=== PATIENT | female | born 1980 | race Caucasian/White ===

== ENCOUNTER → 2021-05-15 16:20 | Outpatient (CLI) | payer BC, SELFPAY ==
[2021-05-15 17:02] LABS: Add Manual Diff / Slide Review NO; Basophils Absolute Auto 0 /uL (0-100); Basophils Percent Auto 0.3 % (0-2); Eosinophils Absolute Auto 400 /uL (0-450); Eosinophils Percent Auto 4.4 % (2-4); Hematocrit 37.1 % (36-46); Hemoglobin 12.4 g/dL (12.0-16.0); Lymphocytes Absolute Auto 2100 /uL (1100-4500); Lymphocytes Percent Auto 21.6 % (25-40); Mean Corpuscular HGB Conc 33.4 % (30-36); Mean Corpuscular Hemoglobin 31.7 PG (26-34); Mean Corpuscular Volume 94.9 fL (80-100); Monocytes Absolute Auto 600 /uL (0-900); Monocytes Percent Auto 5.9 % (3-14); Neutrophils Absolute Auto 6600 /uL (1500-7000); Neutrophils Percent Auto 67.8 % (50-75); Platelet Count 218 X10^3/uL (150-400); Red Blood Cell Count 3.91 X10^6/uL (4.0-5.2); Red Cell Distribution Width 13.4 % (11.6-14.8); White Blood Cell Count 9.7 X10^3/uL (4.5-11.0)
[2021-05-15 17:05] LABS: Appearance Urine UA CLEAR; Bilirubin Urine UA NEGATIVE (NEGATIVE); Color Urine UA YELLOW; Glucose Urine UA NEGATIVE (Negative); Ketones Urine UA NEGATIVE (NEGATIVE); Leukocyte Esterase Urine UA NEGATIVE (NEGATIVE); Nitrite Urine UA NEGATIVE (Negative); Occult Blood Urine UA NEGATIVE (Negative); Protein Urine UA NEGATIVE (Negative); Urobilinogen Urine UA 0.2 E.U./dL (0.2)
[2021-05-15 17:11] LABS: Bacteria Urine None Seen; RBC Urine None Seen (0-5/HPF); Squamous Epithelial Cell Urine 0-1 /HPF (0-5/HPF); WBC Urine None Seen (0-5/HPF)
[2021-05-15 17:12] LABS: Culture Indicated Urine Cult Not Indicated
[2021-05-15 17:14] LABS: PTT Partial Thromboplastin Tim 31 SECONDS (26.4-36.2)
[2021-05-15 17:19] LABS: BUN Creatinine Ratio 31.4 (6-22); Blood Urea Nitrogen 22 mg/dL (7-17); Calcium 8.8 mg/dL (8.4-10.2); Carbon Dioxide 19 mmol/L (22-32); Chloride 106 mmol/L (98-107); Estimated Glomerular Filt Rate > 60.0 mL/min (>60); Glucose 93 mg/dL (70-100); HEMOLYSIS < 15 (0-50); Sodium 135 mmol/L (137-145)
== END ==
PROVIDERS: PCP Nurse Practitioner Family; Referring Provider Neurological Surgery; Visit Provider Neurological Surgery
DX: Z01.818 Encounter for other preprocedural examination (principal); D32.9 Benign neoplasm of meninges, unspecified
CPT/HCPCS: 36415; 80048; 81001; 85025; 85610; 85730

== ENCOUNTER → 2021-07-31 09:49 | Outpatient (CLI) | payer BC, SELFPAY ==
--- NOTE | 2021-07-31 | DI.MRI.S_ITS ---
PROCEDURE: MR BRAIN (IAC) WWO CON INDICATIONS: Benign neoplasm of cerebral meninges. The patient gives additional history of prior meningioma, with surgery in May 2021 to remove it. TECHNIQUE: Noncontrast sagittal T1 spin echo, axial FLAIR, axial gradient echo, axial diffusion and ADC through the brain. Axial thin-slice 3D CISS, coronal TruFISP, axial T1 spin echo with fat saturation through the internal auditory canals. After the administration of contrast, thin slice axial and coronal T1 spin echo with fat saturation through the internal auditory canals, and axial T1 spin echo with fat saturation through the brain. COMPARISON: No prior MRI studies are available for review at the time of this dictation. FINDINGS: Image quality: Excellent. Cerebellopontine angles: There is enhancement seen along the surface of the skull base laterally within the region of the right internal auditory canal, which is relatively poorly defined, yet can be seen on series 14 images 51 through 55 and spans approximately 14 mm transversely. There is abnormal enhancement seen within the right internal auditory canal itself, as on series 16, image 108. The left internal auditory canal and cerebellopontine angle cistern are within normal limits. CSF spaces: Ventricles are normal in size and shape. No extra-axial fluid collections. Basal cisterns are patent. Brain: No intracranial bleeds. Roberts-white matter interface is intact. No additional abnormal intracranial enhancement. Diffusion weighted images demonstrate no acute ischemic insults. Brainstem appears normal. Normal intravascular flow voids are present. Skull and face: Calvarial marrow signal is normal. Orbits appear normal. Sinuses: Sinuses and mastoids are clear. IMPRESSION: Abnormal enhancement is seen within the right internal auditory canal and along the surface of the skull base. Given history, this is most likely related to postoperative change. However, differential diagnosis would also include a mild amount of residual/recurrent meningioma. Short-term follow-up MRI (without and with contrast) is suggested for further evaluation. (No prior MRI studies are available for review at the time of this dictation. If outside priors are presented for comparison, an addendum will be made to this report.) Dictated by: Keshav Madrid M.D. on 07/31/2021 at 10:04 Approved by: Keshav Madrid M.D. on 07/31/2021 at 10:09
== END ==
PROVIDERS: Family Provider Nurse Practitioner Family; PCP Nurse Practitioner Family; Referring Provider Otolaryngology Otology & Neurotology; Visit Provider Otolaryngology Otology & Neurotology
DX: D32.0 Benign neoplasm of cerebral meninges (principal)
CPT/HCPCS: 70553

== ENCOUNTER 2021-08-05 15:30 | Outpatient (RCR) | payer BC, SELFPAY ==
--- NOTE | 2021-06-11 17:29 | ST.OPIE ---
Visit Care Team Role Provider Type ROBERT Parham Family Provider Non-Staff Primary Care Provider Specialty: Family Practice Address: [address] [place], [address] Email: Manuelito Escudero MD Attending Provider Non-Staff Referring Provider Specialty: Medical Address: [address] [address], [place], [address] Email: Speech-Language Pathology Initial Evaluation BREAKER UNIT ASSEMBLER Clinical Swallow Evaluation Start: 06/11/21 12:17 Freq: Status: Active Protocol: Document 06/11/21 12:17 SHAVON (Rec: 06/11/21 12:24 SHAVON [email or web address]) Clinical Swallow Evaluation Session Time Visit Start Time 09:30 Visit Stop Time 10:35 Total Visit Minutes 65 Visit Information Visit Number Initial Evaluation Plan of Care Dates 06/11/21 - 09/11/21 Insurance Information BCBS Out of [facility] Referral Referring Provider Dr. Manuelito Escudero Reason for Referral Effects of Benign Neoplasm of Meninges Setting Assessment Location Outpatient Care Visit Type Note Type Initial evaluation Next Note Type Next Note Type Treatment Note Patient Information Identification Type Name,ID Card History The pt is a 40-yr old female 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 Prior to surgery, the pt had mildly reduced sensation in her throat (right side) but no other symptoms. 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 She reported difficulty chewing on right side with need of lingual sweep to clear right buccal pocketing. She has almost choked a couple of times when taking too big of bites. Now she is more cautious when eating and has to pinch right side of lips to drink water to prevent anterior leakage. She also reported moderate loss of taste. Additionally, the pt's right eye lid closes but very slowly and with effort. Abnormal blinking has led to dry eye, for which she takes eye drops and wears a patch as needed to retain moisture and prevent potential damage to corneal. The pt reported facial movement has improved slightly and that her surgeon anticipated complete recovery. Speech Therapy was ordered to speed recovery. Subjective Observations The pt arrived on time and provided case history supplemental to medical records. Reported by Patient Pain Scale Used Significant variance from 0-8, R) head, face and tissue behind molars Location Head,Other Comment Occasional mild coughing/ choking; anterior labial spillage with liquids Current Diet Regular,Thin liquids Baseline Feeding Method Independent in self-feeding Patient Questionnaire Yes Type of Patient Questionnaire (e.g., EAT EAT-10 -10, MDADI, etc.) Results 11.5: Swallowing liquids, solids, and pills takes effort (2,2,and 3, respectively); food sticks in the throat (2.5); pt coughs when eating (1); and swallowing is stressful (1). Objective Assessment Mental Status Alert,Responsive,Cooperative Oral Integrity WFL Dentition Within normal limits Lip Function Moderate impairment Observation of Lips at Rest Right sided weakness/Drooping Pucker Reduced range of motion, Reduced strength,Right sided weakness/drooping Lip Retraction Reduced range of motion,Right sided weakness/Drooping Alternating Pucker/Lip Retraction Reduced range of motion Tongue Function Within normal limits Observations of Tongue at Rest Within normal limits Tongue Protrusion Within normal limits Tongue Retraction Within normal limits Tongue Lateralization Within normal limits Jaw Function Within normal limits Observations of Jaw at Rest Within normal limits Jaw Opening Within normal limits Jaw Closing Within normal limits Jaw Lateralization Within normal limits Hard/Soft Palate Function Within normal limits Observations of Hard/Soft Palate Within normal limits,Abnormal uvula Nasality Within normal limits Phonation Within normal limits Respiratory Sufficiency Within normal limits Food and Liquid Trials Position During Assessment Upright (90 degrees) Liquids Trialed Thin Solids Trialed Mechanical Soft Administration Type Controlled cup sip,Straw,Self- feeding Oral Impairment Moderately impaired Oral Phase Comments Slowed, effortful mastication and oral prep phase. Pt self- employed lingual sweep of right cheek effectively to clear residue. She reported occ finding food particles in right cheek when brushing her teeth at night. Oral clearance was sufficient with limited trials during today's session. Pt unable to drink from straw d/t reduced lip rounding/seal. No anterior spillage when drinking from cup today, though the pt reported occ liquid spillage at right side, depending on size of the cup/ glass opening. Pharyngeal Impairment Within functional limits Pharyngeal Phase Comments No overt s/sx of aspiration were observed during today's evaluation. Swallow did appear to be more effortful than is normal. Fatigue/Endurance Endurance WNL Findings Swallowing Function Oropharyngeal phase dysphagia Severity of Swallow Impairment Mildly-moderately impaired Contributing Factors to Swallow Reduced oral strength/ Impairment coordination/sensation Prognosis Good Based on Cognitive status,Family support,Age,Duration of symptoms/severity Comment Pt's speech was 100% intelligible with precision WNL. Education and training was provided orally, in writing, and with demonstration RE oral motor exercises and safe swallow strategies. Pt was able to perform all exercises. Blinking of eyes was asynchronous, requiring significantly reduced rate to coordinate and achieve complete right eye closure. Movement of all facial structures was limited but present, indicating stimulability to exercise and good prognosis for recovery. Impact on Safety and Functioning Risk for aspiration Comments Mild Recommendations Instrumental Assessment No Swallowing Treatment Yes Frequency 1x/wk Duration 6 wks, taper thereafter as needed Recommended Solids Regular Recommended Liquids Thin Safety Precautions/Swallowing Reduce distractions,Remain Recommendations upright (90 degrees) during all oral intake,Small bites and sips when eating,Strict oral care after intake Medication Recommendations As Tolerated Comments Consider splitting pills or using carrier as needed Education Patient/Caregiver Education Described results of evaluation,Patient expressed understanding of evaluation, Patient expressed agreement with goals & treatment plans, Patient expressed understanding of safety precautions,Patient expressed understanding of feeding recommendations Goals Short-term Goals 1. The pt will perform oral motor and facial exercises independently to increase strength, ROM and coordination necessary for oral prep/ swallow phases and for communicative facial expression. 2. The pt will perform exercises independently to increase strength, ROM and coordination of pharyngeal and laryngeal musculature to reduce risk of aspiration and increase comfort with oral intake. 3. The pt will follow safe swallow strategies independently to reduce risk of aspiration. Long-term Goals 1. The pt will regain normal movement of facial musculature to improve oral prep/swallow phases for safety and comfort with oral intake and to normalize facial expression necessary for communication. 2. The pt will consume regular texture, thin liquids, and pills with swallow function and comfort WNL as measured by clinical bedside evaluation and pt report.
--- NOTE | 2021-06-18 16:56 | ST.OPTN ---
Visit Care Team Role Provider Type ROBERT Parham Family Provider Non-Staff Primary Care Provider Address: [address] [place], [address] Manuelito Escudero MD Attending Provider Non-Staff Referring Provider Address: [address] [address], [place], [address] IN CLASS SPECIAL EDUCATION TEACHER Treatment Note IN CLASS SPECIAL EDUCATION TEACHER Treatment Note Start: 06/11/21 09:30 Freq: Status: Active Protocol: Document 06/18/21 16:46 SHAVON (Rec: 06/18/21 16:46 SHAVON [email or web address]) Speech Pathology Treatment Note Session Time Visit Start Time 15:30 Visit Stop Time 16:30 Total Visit Minutes 60 Visit Information Visit Number 1 Plan of Care Dates 06/11/21 - 09/11/21 Insurance Information BC Out of [facility] Setting Treatment Setting Outpatient Care Visit Type Note Type Treatment Note Next Note Type Next Note Type Treatment Note General Information General Information The pt is a 40-yr old female 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 Prior to surgery, the pt had mildly reduced sensation in her throat (right side) but no other symptoms. 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 She reported difficulty chewing on right side with need of lingual sweep to clear right buccal pocketing. She has almost choked a couple of times when taking too big of bites. Now she is more cautious when eating. Has to pinch right side of lips to drink water to prevent anterior leakage. She also reported moderate loss of taste. Additionally, the pt 's right lid closes but very slowly and with effort. Abnormal blinking has led to dry eye, for which she takes eye drops and wears a patch as needed to retain moisture and prevent potential damage to corneal. The pt reported facial movement has improved slightly and that her surgeon anticipated complete recovery. Speech Therapy was ordered to speed recovery. Subjective Observations/Patient Presentation The pt arrived on time. No new complaints. Reported coughing and/or near choking a couple of times over the last week when taking too large of bites , eating quickly, or talking while eating. She's been consistent with HEP. Chief Complaint(s) Swallowing,Other Additional Areas of Concern Facial movements Rehab Expectation/Goals: Patient Goals Resume to normal swallow function and facial movements Patient Knowledge/Awareness of IN CLASS SPECIAL EDUCATION TEACHER Role Excellent in Treatment Patient/Caregiver Compliance with Home Excellent Exercise Program Objective Short Term Goals 1. The pt will perform oral motor and facial exercises independently to increase strength, ROM and coordination necessary for oral prep/ swallow phases and for communicative facial expression. 2. The pt will perform exercises independently to increase strength, ROM and coordination of pharyngeal and laryngeal musculature to reduce risk of aspiration and increase comfort with oral intake. 3. The pt will follow safe swallow strategies independently to reduce risk of aspiration. [ End ] Mail Distribution Scheme Examiner Goals 1. The pt will regain normal movement of facial musculature to improve oral prep/swallow phases for safety and comfort with oral intake and to normalize facial expression necessary for communication. 2. The pt will consume regular texture, thin liquids, and pills with swallow function and comfort WNL as measured by clinical bedside evaluation and pt report. Treatment Activities The pt performed oral motor exercises, demonstrating mildly increased ROM and strength of labial, buccal and occular muscles. She remains unable to make a complete lip seal around a typically sized drinking straw but has improved. Also not yet able to blink synchronously with left and right eyelid (right slower than left) but attains closure of right eyelid with mildly increased speed. Initiated education of swallow function and safety and training of swallow exercises including Lelo, base and back of tongue, laryngeal lift via intraoral pressure with straw, and effortful swallow. Pt returned demonstration of all exercises, requiring pinching of right side of lips with fingers to effectively complete laryngeal lift exercise. This exercise was chosen to target lip seal as well, but may be changed to Wendy maneuver if the pt prefers not to pinch lips with fingers, until she is able to complete lip seal around the straw. Will f/u at next session and adjust accordingly . Assessment Patient Response to Treatment Good Rehab Potential Good Impairments Identified Dysphagia Additional Impairments Identified Right side facial palsy Progress Towards Goals Good Progress Assessment of Overall Progress Improving Assessment of Improvement The pt has made small gains in increasing strength, coordination and ROM of facial muscles. She was receptive and responsive to education and training of swallow exercises. She remains enthusiastic toward therapy and motivated to improve. Reviewed with Patient Goals,Progress Being Made,Home Exercise Program Patient/Caregiver Understanding Excellent
--- NOTE | 2021-06-24 13:30 | ST.OPTN ---
Visit Care Team Role Provider Type ROBERT Parham Family Provider Non-Staff Primary Care Provider Address: [address] [place], [address] Manuelito Escudero MD Attending Provider Non-Staff Referring Provider Address: [address] [address], [place], [address] ROD PILER Treatment Note ROD PILER Treatment Note Start: 06/11/21 09:30 Freq: Status: Active Protocol: Document 06/24/21 13:22 SHAVON (Rec: 06/24/21 13:30 [email or web address] [email or web address]) Speech Pathology Treatment Note Session Time Visit Start Time 09:30 Visit Stop Time 10:20 Total Visit Minutes 50 Visit Information Visit Number 2 Plan of Care Dates 06/11/21 - 09/11/21 Insurance Information [place] Out of [facility] Setting Treatment Setting Outpatient Care Visit Type Note Type Treatment Note Next Note Type Next Note Type Treatment Note General Information General Information The pt is a 40-yr old female 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 Prior to surgery, the pt had mildly reduced sensation in her throat (right side) but no other symptoms. 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 She reported difficulty chewing on right side with need of lingual sweep to clear right buccal pocketing. She has almost choked a couple of times when taking too big of bites. Now she is more cautious when eating. Has to pinch right side of lips to drink water to prevent anterior leakage. She also reported moderate loss of taste. Additionally, the pt 's right lid closes but very slowly and with effort. Abnormal blinking has led to dry eye, for which she takes eye drops and wears a patch as needed to retain moisture and prevent potential damage to corneal. The pt reported facial movement has improved slightly and that her surgeon anticipated complete recovery. Speech Therapy was ordered to speed recovery. Subjective Observations/Patient Presentation The pt arrived on time. Reported compliance with HEP and improving facial motor movement. She stated that chewing food continues to be a bit difficult, including opening her jaw. Chief Complaint(s) Swallowing,Other Additional Areas of Concern Facial movements Rehab Expectation/Goals: Patient Goals Resume to normal swallow function and facial movements Patient Knowledge/Awareness of ROD PILER Role Excellent in Treatment Patient/Caregiver Compliance with Home Excellent Exercise Program Objective Short Term Goals 1. The pt will perform oral motor and facial exercises independently to increase strength, ROM and coordination necessary for oral prep/ swallow phases and for communicative facial expression. 2. The pt will perform exercises independently to increase strength, ROM and coordination of pharyngeal and laryngeal musculature to reduce risk of aspiration and increase comfort with oral intake. 3. The pt will follow safe swallow strategies independently to reduce risk of aspiration. [ End ] Automotive Product Engineer Goals 1. The pt will regain normal movement of facial musculature to improve oral prep/swallow phases for safety and comfort with oral intake and to normalize facial expression necessary for communication. 2. The pt will consume regular texture, thin liquids, and pills with swallow function and comfort WNL as measured by clinical bedside evaluation and pt report. Treatment Activities The pt performed oral motor exercises, demonstrating mildly increased ROM and strength of labial, buccal and occular muscles. Lip seal around straw and during intraoral pressure tasks is improving. Smile is approaching symmetry with mild weakness continuing on right side. Pt is able to perform Lelo maneuver with greater lingual extension. Trained pt in new buccal and labial exercises, orally with demonstration and in writing. She was able to perfom all exercise with mild-moderately reduced strength and coordination. Based on progress to date, anticipate this will improve quickly. Assessment Patient Response to Treatment Good Rehab Potential Good Impairments Identified Dysphagia Additional Impairments Identified Right side facial palsy Progress Towards Goals Good Progress Assessment of Overall Progress Improving Assessment of Improvement The pt continues to make progress in increasing facial muscular strength and ROM. She was responsive to training of new exercises targeting labial and buccal strength and ROM to improve oral prep and swallow phases. Reviewed with Patient Goals,Progress Being Made,Home Exercise Program Patient/Caregiver Understanding Excellent Plan Amount of Therapy Recommended 1-2 Months Frequency of Treatment Once a Week Comment May taper over course of treatment Length of Session 45 Minutes Therapeutic Contents Client Education,Home Exercise Program,Swallowing/Feeding, Other Additional Areas of Treatment Facial palsy Provided Patient/Caregiver Instruction Home Exercise Program,Plan of Care,Questions/Concerns Therapy Recommendations Continue with Current Program
--- NOTE | 2021-07-02 15:46 | ST.OPTN ---
Visit Care Team Role Provider Type ROBERT Parham Family Provider Non-Staff Primary Care Provider Address: [address] [place], [address] Manuelito Escudero MD Attending Provider Non-Staff Referring Provider Address: [address] [facility] [address], [place], [address] CHUTE TENDER Treatment Note CHUTE TENDER Treatment Note Start: 06/11/21 09:30 Freq: Status: Active Protocol: Document 07/02/21 12:27 SHAVON (Rec: 07/02/21 12:32 SHAVON [email or web address]) Speech Pathology Treatment Note Session Time Visit Start Time 08:35 Visit Stop Time 09:30 Total Visit Minutes 55 Visit Information Visit Number 3 Plan of Care Dates 06/11/21 - 09/11/21 Insurance Information [place] Out of [facility] Setting Treatment Setting Outpatient Care Visit Type Note Type Treatment Note Next Note Type Next Note Type Treatment Note General Information General Information The pt is a 40-yr old female 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 Prior to surgery, the pt had mildly reduced sensation in her throat (right side) but no other symptoms. 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 She reported difficulty chewing on right side with need of lingual sweep to clear right buccal pocketing. She has almost choked a couple of times when taking too big of bites. Now she is more cautious when eating. Has to pinch right side of lips to drink water to prevent anterior leakage. She also reported moderate loss of taste. Additionally, the pt 's right lid closes but very slowly and with effort. Abnormal blinking has led to dry eye, for which she takes eye drops and wears a patch as needed to retain moisture and prevent potential damage to corneal. The pt reported facial movement has improved slightly and that her surgeon anticipated complete recovery. Speech Therapy was ordered to speed recovery. Subjective Observations/Patient Presentation The pt arrived on time. Reported compliance with HEP and improving facial motor movement and that swallowing is becoming easier. She had some questions about exercises . Also reported difficulty hearing others d/t right ear deafness since surgery, as well as reduced attention and memory skills since surgery. 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 Also stated she thinks she has always had some ADD that was never addressed as a child, but seems worse since surgery. She feels very scattered. Chief Complaint(s) Swallowing,Other Additional Areas of Concern Facial movements Rehab Expectation/Goals: Patient Goals Resume to normal swallow function and facial movements Patient Knowledge/Awareness of CHUTE TENDER Role Excellent in Treatment Patient/Caregiver Compliance with Home Excellent Exercise Program Objective Short Term Goals 1. The pt will perform oral motor and facial exercises independently to increase strength, ROM and coordination necessary for oral prep/ swallow phases and for communicative facial expression. 2. The pt will perform exercises independently to increase strength, ROM and coordination of pharyngeal and laryngeal musculature to reduce risk of aspiration and increase comfort with oral intake. 3. The pt will follow safe swallow strategies independently to reduce risk of aspiration. [ End ] Prison Goals 1. The pt will regain normal movement of facial musculature to improve oral prep/swallow phases for safety and comfort with oral intake and to normalize facial expression necessary for communication. 2. The pt will consume regular texture, thin liquids, and pills with swallow function and comfort WNL as measured by clinical bedside evaluation and pt report. Treatment Activities All questions RE exercises were answered. Pt performed exercises appropriately demonstrating continued mild improvements in ROM, strength, coordination and tone of facial musculature. Consulted with pt RE her other concerns related to hearing loss. Recommended she be seen by an Java Support Engineer to discuss assistive hearing devices, treatment of tinnitus, and/or aural rehabilitation. Per pt's request, this CHUTE TENDER agreed to fax the pt's PCP and Neurologist to request such referral. Education was provided to the pt orally and in writing RE environmental and personal strategies and consideration for communication in the presence of hearing impairment. The pt was receptive to this information and identified tactics that would be helpful to her. Scope of CHUTE TENDER services was also discussed, including assessment and treatment of expressive language and cognitive communication skills , such as the WFDs, attention and memory skills she has concerns about. The pt expressed interest in addressing these concerns, which will be looked at more thoroughly at next session. During today's session, the pt did demonstrate WFDs x2 and forgetfulness of train of thought x3. She frequently changed topics suddenly and had trouble returning to a previous topic, which may indicate attention and memory deficits. She was aware of these behaviors and challenges and talked openly about them with examples, demonstrating insight to deficits. Assessment Patient Response to Treatment Good Rehab Potential Good Impairments Identified Cognitive-Linguistic Skills, Dysphagia Additional Impairments Identified Right side facial palsy; deafness in right ear; reduced attn & memory Progress Towards Goals Good Progress Assessment of Overall Progress Improving Assessment of Improvement The pt continues to make progress in increasing facial muscular strength and ROM. She is becoming increasingly independent with exercises. She was resonsive to education RE communication with hearing loss as well as recommendation to work with an Java Support Engineer. Throughout the session, she exhibited and c/o deficits in attention, memory and word recall and was agreeable to assessment and treatment around these skills, which is advised and will be initiated at next session. Reviewed with Patient Goals,Progress Being Made,Home Exercise Program Patient/Caregiver Understanding Excellent Plan Amount of Therapy Recommended 1-2 Months Frequency of Treatment Once a Week Comment May taper over course of treatment Length of Session 45 Minutes Treatment Emphasis Next Session Cognitive-linguistic assessment Therapeutic Contents Client Education,Home Exercise Program,Swallowing/Feeding, Other Additional Areas of Treatment Facial palsy Provided Patient/Caregiver Instruction Home Exercise Program,Plan of Care,Questions/Concerns Therapy Recommendations Continue with Current Program
--- NOTE | 2021-07-08 17:55 | ST.OPIE ---
Visit Care Team Role Provider Type ROBERT Parham Family Provider Non-Staff Primary Care Provider Specialty: Family Practice Address: [address] [place], [address] Email: Manuelito Escudero MD Attending Provider Non-Staff Referring Provider Specialty: Medical Address: [address] [address], [place], [address] Email: Speech-Language Pathology Initial Evaluation RESTAURANT ASSISTANT Adult Cognitive Linguistic Eval Start: 07/08/21 17:57 Freq: Status: Active Protocol: Document 07/08/21 17:57 SHAVON (Rec: 07/08/21 17:58 SHAVON [email or web address]) Adult Cognitive Linguistic Evaluation Session Time Visit Start Time 15:30 Visit Stop Time 16:35 Total Visit Minutes 65 Visit Information Visit Number 4 Setting Assessment Location Outpatient Care Visit Type Note Type Initial evaluation Next Note Type Next Note Type Treatment Note Patient Information Medical History The pt is being seen for treatment of R) facial palsy secondary to surgical removal of tumor on the auditory canal and subsequent damage to the auditory nerve, which is not anticipated to be permanent. During treatment, the pt c/o reduced memory and attention skills since surgery. She suspected she has had attention deficits since childhood that were never addressed, but these have worsened since surgery. She expressed concern about her ability to return to a fast- paced and demanding job once her medical leave expires. She requested cognitive- linguistic assessment and treatment to improve skills to PLOF so she can effectively to return to work. Language(s) Spoken in the Home Hungarian Occupation Status On medical leave Hearing Hearing Level Impaired Auditory History R) hearing loss secondary to tumor on auditory canal/nerve and related surgery. Vision Vision Status Not Impaired Comments Pt requires frequent eye drops in right eye d/t impaired tear production Previous Therapy History of Therapy No Speech Therapy prior to current course. She has been attending Speech Therapy to address facial palsy since 05/22. Subjective Patient Report The pt arrived on time and restated concerns as outlined above. Mental Status Alert,Responsive,Cooperative Assessment Oral Motor Examination Completed No Informal Assessment Receptive Language Normal Yes Expressive Language Normal Yes Pragmatic Language Normal Yes Speech Normal Yes Cognition Normal No: Mildly impaired memory & visuospatial skills Formal Assessment Standardized Test/Screener Type Cognitive Linguistic Quick Test (CLQT) Administration Complete Results Composite Severity Rating: WNL Attention: WNL Memory: Mild Executive Functions: WNL Language: WNL Visuospatial Skills: Mild Clock Drawing: WNL Non-Linguistic Cognition: Mild Linguistic/Aphasia: Mild (51/ 56 -- Test scoring does not allow for a WNL rating) Also administered MoCA, using clock drawing and generative naming scores from CLQT: Total: 24/30 (26 or above = Normal) Errors included transposing 2 numbers when repeating 5 numbers in forward order; syntactic error when repeating the longer of 2 sentences; generation of 10 words beginning with letter M (from CLQT) in 60 sec; and delayed recall of 2/5 items in a list (+ 2 items with category clue and 1 item with multiple choice cue). Findings/Results Language Function Within functional limits Cognitive Function Mildly impaired Findings The pt presents with mild cognitive impairment likely secondary to tumor/surgical effects with possible contribution from unilateral hearing loss. 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 Given the pt's age and need and intention to return to a demanding job, skilled intervention is medically necessary to improve skills to PLOF in order to fulfill personal, family, and employment demands and achieve highest level QOL. Cognitive Communication Deficits Self-awareness of Cognitive- Predictive awareness (able to Communication Deficits predict problem; impact of impairments) Concomitant Factors Concomitant Factors Hearing loss Impact on Functioning Activity Limits/Particip.Rest. Mild: General Tasks and Demands Household Tasks Interpersonal Interactions Mod: Employment Prognosis Prognosis Good Based on Cognitive status,Family support,Comorbidities,Duration of symptoms/severity,Time since onset Plan of Care Speech-Language Treatment Yes Frequency Continue 1x/wk in conjunction with treatment for facial palsy Duration 3-4 mos Patient/Caregiver Education Described results of evaluation,Patient expressed understanding of evaluation, Patient expressed agreement with goals and treatment plans ,Patient requires further education/training Short Term Goals 1. With collaboration with RESTAURANT ASSISTANT , the pt will develop external memory tools to improve ability to perform functional tasks. 2. The pt will demonstrate 80% consistent use of external memory tools to improve ability to perform functional tasks. 3. The pt will demonstrate understanding of internal attn /memory strategies by completing structured tasks with 80% accuracy. Care Home Goals 1. With use use of external attn/memory tools as needed, the pt will perform personal and family responsibilities as per PLOF, as measured by pt/ spouse report and clinician judgment.
--- NOTE | 2021-07-16 17:51 | ST.OPTN ---
Visit Care Team Role Provider Type ROBERT Parham Family Provider Non-Staff Primary Care Provider Address: [address] [place], [address] Manuelito Escudero MD Attending Provider Non-Staff Referring Provider Address: [address] [address], [place], [address] DIRECTOR OF INTERCOLLEGIATE ATHLETICS Treatment Note DIRECTOR OF INTERCOLLEGIATE ATHLETICS Treatment Note Start: 06/11/21 09:30 Freq: Status: Active Protocol: Document 07/16/21 17:39 SHAVON (Rec: 07/16/21 17:51 SHAVON [id number]) Speech Pathology Treatment Note Session Time Visit Start Time 15:30 Visit Stop Time 16:20 Total Visit Minutes 50 Visit Information Visit Number 5 Plan of Care Dates 06/11/21 - 09/11/21 Insurance Information BC Out of [facility] Setting Treatment Setting Outpatient Care Visit Type Note Type Treatment Note Next Note Type Next Note Type Treatment Note General Information General Information The pt is a 40-yr old female 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 Prior to surgery, the pt had mildly reduced sensation in her throat (right side) but no other symptoms. 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 She reported difficulty chewing on right side with need of lingual sweep to clear right buccal pocketing. She has almost choked a couple of times when taking too big of bites. Now she is more cautious when eating. Has to pinch right side of lips to drink water to prevent anterior leakage. She also reported moderate loss of taste. Additionally, the pt 's right lid closes but very slowly and with effort. Abnormal blinking has led to dry eye, for which she takes eye drops and wears a patch as needed to retain moisture and prevent potential damage to corneal. The pt reported facial movement has improved slightly and that her surgeon anticipated complete recovery. Speech Therapy was ordered to speed recovery. Subjective Observations/Patient Presentation The pt arrived on time. Reported compliance with HEP and improving facial motor movement and that swallowing is becoming easier. Chief Complaint(s) Swallowing,Cognitive,Other Additional Areas of Concern Facial movements Rehab Expectation/Goals: Patient Goals Resume to normal swallow function, facial movements & cognitive function Patient Knowledge/Awareness of DIRECTOR OF INTERCOLLEGIATE ATHLETICS Role Excellent in Treatment Patient/Caregiver Compliance with Home Excellent Exercise Program Objective Short Term Goals 1. With collaboration with DIRECTOR OF INTERCOLLEGIATE ATHLETICS , the pt will develop external memory tools to improve ability to perform functional tasks. 2. The pt will demonstrate 80% consistent use of external memory tools to improve ability to perform functional tasks. 3. The pt will demonstrate understanding of internal attn /memory strategies by completing structured tasks with 80% accuracy. Correction Goals 1. With use use of external attn/memory tools as needed, the pt will perform personal and family responsibilities as per PLOF, as measured by pt/ spouse report and clinician judgment. Treatment Activities Education provided RE assessment results. Feedback and POC discussed. Pt was in agreement. Consulted with pt RE cognitive demands at home and work, as well as examples of situations in which her attention, memory, and other skills are lacking. Examples provided by pt included general forgetfulness of information and tasks to do. Work demands are high and include significant need for dual attention, organization, working within deadlines in a very fast-paced environment. The pt reported frequent sense of overwhelm, particularly at the thought of returning to work. The pt is using the Notes jose on her cell phone and other written lists to track information with moderate success. Initiated development of external memory and organizational tools. Introduced the pt to the Reminders jose on her cell phone in order to better track tasks to complete, including use of alerts. The pt was very agreeable to this. Following demonstration and oral instructions, she created 2 new lists with multiple items per list and set alerts for several of those, demonstrating excellent understanding and ability to use. Discussed and demonstrated other technological tools including [id number], audio tools that will read text on her cell phone to her, and voice commands with Tatiana. The pt verbalized understanding and identified which tools she thought might be helpful, particularly [id number] and Tatiana, and those which she might not be interested in. Educated pt in importance of increasing attention to strengthen memory and initiated training in attention/memory strategies including say aloud strategy . Pt expressed understanding and interest in using this strategy. Needs further training and reinforcement. The pt recorded today's session to refer back to it as an additional memory tool. Assessment Patient Response to Treatment Good Rehab Potential Good Impairments Identified Cognitive-Linguistic Skills, Dysphagia Additional Impairments Identified Right side facial palsy; deafness in right ear; reduced attn & memory Progress Towards Goals Good Progress Assessment of Overall Progress Improving Assessment of Improvement The pt was receptive to all information and training provided today. She demonstrated immediate ability to use Reminders jose in phone and was participatory in collaborating about other attention and memory tools that may assist her in completing daily tasks without feeling overwhelmed and in preparation for return to work . Reviewed with Patient Goals,Progress Being Made,Home Exercise Program Patient/Caregiver Understanding Excellent Plan Amount of Therapy Recommended 1-2 Months Frequency of Treatment Once a Week Comment May taper over course of treatment Length of Session 45 Minutes Treatment Emphasis Next Session External memory/org tools; internal mem/attn strategies Therapeutic Contents Client Education,Home Exercise Program,Swallowing/Feeding, Other Additional Areas of Treatment Facial palsy Provided Patient/Caregiver Instruction Home Exercise Program,Plan of Care,Questions/Concerns Therapy Recommendations Continue with Current Program
--- NOTE | 2021-07-23 15:40 | ST.OPTN ---
Visit Care Team Role Provider Type ROBERT Parham Family Provider Non-Staff Primary Care Provider Address: [address] [place], [address] Manuelito Escudero MD Attending Provider Non-Staff Referring Provider Address: [address] [address], [place], [address] NEURO UROLOGIST Treatment Note NEURO UROLOGIST Treatment Note Start: 06/11/21 09:30 Freq: Status: Active Protocol: Document 07/23/21 14:21 SHAVON (Rec: 07/23/21 14:31 SHAVON [email or web address]) Speech Pathology Treatment Note Session Time Visit Start Time 12:30 Visit Stop Time 13:20 Total Visit Minutes 50 Visit Information Visit Number 6 Plan of Care Dates 06/11/21 - 09/11/21 Insurance Information BC Out of [facility] Setting Treatment Setting Outpatient Care Visit Type Note Type Treatment Note Next Note Type Next Note Type Treatment Note General Information General Information The pt is a 40-yr old female 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 Prior to surgery, the pt had mildly reduced sensation in her throat (right side) but no other symptoms. 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 She reported difficulty chewing on right side with need of lingual sweep to clear right buccal pocketing. She has almost choked a couple of times when taking too big of bites. Now she is more cautious when eating. Has to pinch right side of lips to drink water to prevent anterior leakage. She also reported moderate loss of taste. Additionally, the pt 's right lid closes but very slowly and with effort. Abnormal blinking has led to dry eye, for which she takes eye drops and wears a patch as needed to retain moisture and prevent potential damage to corneal. The pt reported facial movement has improved slightly and that her surgeon anticipated complete recovery. Speech Therapy was ordered to speed recovery. Subjective Observations/Patient Presentation The pt arrived on time. No new complaints. Chief Complaint(s) Swallowing,Cognitive,Other Additional Areas of Concern Facial movements Rehab Expectation/Goals: Patient Goals Resume to normal swallow function, facial movements & cognitive function Patient Knowledge/Awareness of NEURO UROLOGIST Role Excellent in Treatment Patient/Caregiver Compliance with Home Excellent Exercise Program Objective Short Term Goals 1. With collaboration with NEURO UROLOGIST , the pt will develop external memory tools to improve ability to perform functional tasks. 2. The pt will demonstrate 80% consistent use of external memory tools to improve ability to perform functional tasks. 3. The pt will demonstrate understanding of internal attn /memory strategies by completing structured tasks with 80% accuracy. Cardiology Coordinator Goals 1. With use use of external attn/memory tools as needed, the pt will perform personal and family responsibilities as per PLOF, as measured by pt/ spouse report and clinician judgment. Treatment Activities Education provided in cognitive organization, including simplification and attention skills, as related to strength of memory. Continued training in internal memory strategies with patient handouts and examples with demonstration. Given a list of 9 grocery store items, the pt recalled 6 items prior to strategy training. Trained pt in association, visualization, acronyms, and chunking strategies. Following training and an additional dealy of ~ 20 min, the pt recalled the 9 grocery items with 1 min semantic prompt. Also trained pt in strategy for approaching conversations in a structured, organized way, using a triangle visual aid including 3 steps listed from top to bottom of triangle: (1) Identify the topic; (2) State the main point(s); and (3) Discuss details. The pt restated strategies in her own words, verbalizing understanding. Assessment Patient Response to Treatment Good Rehab Potential Good Impairments Identified Cognitive-Linguistic Skills, Dysphagia Additional Impairments Identified Right side facial palsy; deafness in right ear; reduced attn & memory Progress Towards Goals Good Progress Assessment of Overall Progress Improving Assessment of Improvement The pt was highly receptive to these strategies and expressed intent to discuss with her for added support, which is encouraged. She has been using Reminders jose introduced last week effectively and reported positive results. Reviewed with Patient Goals,Progress Being Made,Home Exercise Program Patient/Caregiver Understanding Excellent Plan Amount of Therapy Recommended 1-2 Months Frequency of Treatment Once a Week Comment May taper over course of treatment Length of Session 45 Minutes Treatment Emphasis Next Session External memory/org tools; internal mem/attn strategies Therapeutic Contents Client Education,Home Exercise Program,Swallowing/Feeding, Other Additional Areas of Treatment Facial palsy Provided Patient/Caregiver Instruction Home Exercise Program,Plan of Care,Questions/Concerns Therapy Recommendations Continue with Current Program
--- NOTE | 2021-08-05 17:50 | ST.OPTN ---
Visit Care Team Role Provider Type ROBERT Parham Family Provider Non-Staff Primary Care Provider Address: [address] [place], [address] Manuelito Escudero MD Attending Provider Non-Staff Referring Provider Address: [address] [address], [place], [address] INSOLE AND OUTSOLE SPLITTER Treatment Note INSOLE AND OUTSOLE SPLITTER Treatment Note Start: 06/11/21 09:30 Freq: Status: Active Protocol: Document 08/05/21 16:41 SHAVON (Rec: 08/05/21 16:43 SHAVON [id number]) Speech Pathology Treatment Note Session Time Visit Start Time 15:40 Visit Stop Time 16:40 Total Visit Minutes 60 Visit Information Visit Number 7 Plan of Care Dates 06/11/21 - 09/11/21 Insurance Information [place] Out of [facility] Setting Treatment Setting Outpatient Care Visit Type Note Type Treatment Note Next Note Type Next Note Type Treatment Note General Information General Information The pt is a 40-yr old female 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 Prior to surgery, the pt had mildly reduced sensation in her throat (right side) but no other symptoms. 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 She reported difficulty chewing on right side with need of lingual sweep to clear right buccal pocketing. She has almost choked a couple of times when taking too big of bites. Now she is more cautious when eating. Has to pinch right side of lips to drink water to prevent anterior leakage. She also reported moderate loss of taste. Additionally, the pt 's right lid closes but very slowly and with effort. Abnormal blinking has led to dry eye, for which she takes eye drops and wears a patch as needed to retain moisture and prevent potential damage to corneal. The pt reported facial movement has improved slightly and that her surgeon anticipated complete recovery. Speech Therapy was ordered to speed recovery. Subjective Observations/Patient Presentation The pt arrived on time. Reported frequent coughing which increases chronic headache. No other new complaints. Chief Complaint(s) Swallowing,Cognitive,Other Additional Areas of Concern Facial movements Rehab Expectation/Goals: Patient Goals Resume to normal swallow function, facial movements & cognitive function Patient Knowledge/Awareness of INSOLE AND OUTSOLE SPLITTER Role Excellent in Treatment Patient/Caregiver Compliance with Home Excellent Exercise Program Objective Short Term Goals 1. With collaboration with INSOLE AND OUTSOLE SPLITTER , the pt will develop external memory tools to improve ability to perform functional tasks. 2. The pt will demonstrate 80% consistent use of external memory tools to improve ability to perform functional tasks. 3. The pt will demonstrate understanding of internal attn /memory strategies by completing structured tasks with 80% accuracy. Halfway Goals 1. With use use of external attn/memory tools as needed, the pt will perform personal and family responsibilities as per PLOF, as measured by pt/ spouse report and clinician judgment. Treatment Activities Assessed pt's oral motor skills, noting significantly increased facial symmetry. Eyes are blinking in sync, and only mild right side droop/ weakness is noted. Pt continues to be compliant with HEP tasks. Initiated training in cough alternatives (i.e., hard swallow and silent cough) to reduce increased headache pain and pressure from cough. The pt returned demonstration and verbalized understanding. Instructions were provided orally with demonstration and in writing for home practice and carryover. Continued training in memory strategies, targeting say aloud strategies to increase attention and recall of where items are placed and intended actions. Introduced short interruption with a vallecillo word technique to promote recall of thoughts during conversations . Strategy includes briefly and politely interrupting her conversation partner with the request to remember a vallecillo word that represents the thought that was aroused during conversation. This strategy is aimed at reducing major interruptions, increasing attention for better delayed recall, and to preserve relationships. The pt was encouraged to explain the strategy to conversation partners, james her spouse, prior to use so that the conversation partners are aware of the strategy and can offer added support. The pt was in agreement with this. Assessment Patient Response to Treatment Good Rehab Potential Good Impairments Identified Cognitive-Linguistic Skills, Dysphagia Additional Impairments Identified Right side facial palsy; deafness in right ear; reduced attn & memory Progress Towards Goals Good Progress Assessment of Overall Progress Improving Assessment of Improvement The pt was highly receptive to these strategies and expressed intent to discuss with her for added support, which is encouraged. She was able to perform alternative cough techniques. Reviewed with Patient Goals,Progress Being Made,Home Exercise Program Patient/Caregiver Understanding Excellent Plan Amount of Therapy Recommended 1-2 Months Frequency of Treatment Once a Week Comment May taper over course of treatment Length of Session 45 Minutes Treatment Emphasis Next Session Cont external memory/org tools ; internal mem/attn strategies Therapeutic Contents Client Education,Home Exercise Program,Swallowing/Feeding, Other Additional Areas of Treatment Facial palsy Provided Patient/Caregiver Instruction Home Exercise Program,Plan of Care,Questions/Concerns Therapy Recommendations Continue with Current Program
--- NOTE | 2021-08-11 13:54 | ST.OPTN ---
Visit Care Team Role Provider Type ROBERT Parham Family Provider Non-Staff Primary Care Provider Address: [address] [place], [address] Manuelito Escudero MD Attending Provider Non-Staff Referring Provider Address: [address] [address], [place], [address] NUCLEAR OFFICER Treatment Note NUCLEAR OFFICER Treatment Note Start: 06/11/21 09:30 Freq: Status: Active Protocol: Document 08/05/21 16:41 SHAVON (Rec: 08/05/21 16:43 SHAVON [id number]) Speech Pathology Treatment Note Session Time Visit Start Time 15:40 Visit Stop Time 16:40 Total Visit Minutes 60 Visit Information Visit Number 7 Plan of Care Dates 06/11/21 - 09/11/21 Insurance Information BC Out of [facility] Setting Treatment Setting Outpatient Care Visit Type Note Type Treatment Note Next Note Type Next Note Type Treatment Note General Information General Information The pt is a 40-yr old female 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 Prior to surgery, the pt had mildly reduced sensation in her throat (right side) but no other symptoms. 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 She reported difficulty chewing on right side with need of lingual sweep to clear right buccal pocketing. She has almost choked a couple of times when taking too big of bites. Now she is more cautious when eating. Has to pinch right side of lips to drink water to prevent anterior leakage. She also reported moderate loss of taste. Additionally, the pt 's right lid closes but very slowly and with effort. Abnormal blinking has led to dry eye, for which she takes eye drops and wears a patch as needed to retain moisture and prevent potential damage to corneal. The pt reported facial movement has improved slightly and that her surgeon anticipated complete recovery. Speech Therapy was ordered to speed recovery. Subjective Observations/Patient Presentation The pt arrived on time. Reported frequent coughing which increases chronic headache. No other new complaints. Chief Complaint(s) Swallowing,Cognitive,Other Additional Areas of Concern Facial movements Rehab Expectation/Goals: Patient Goals Resume to normal swallow function, facial movements & cognitive function Patient Knowledge/Awareness of NUCLEAR OFFICER Role Excellent in Treatment Patient/Caregiver Compliance with Home Excellent Exercise Program Objective Short Term Goals 1. With collaboration with NUCLEAR OFFICER , the pt will develop external memory tools to improve ability to perform functional tasks. 2. The pt will demonstrate 80% consistent use of external memory tools to improve ability to perform functional tasks. 3. The pt will demonstrate understanding of internal attn /memory strategies by completing structured tasks with 80% accuracy. Senior Living Goals 1. With use use of external attn/memory tools as needed, the pt will perform personal and family responsibilities as per PLOF, as measured by pt/ spouse report and clinician judgment. Treatment Activities Assessed pt's oral motor skills, noting significantly increased facial symmetry. Eyes are blinking in sync, and only mild right side droop/ weakness is noted. Pt continues to be compliant with HEP tasks. Initiated training in cough alternatives (i.e., hard swallow and silent cough) to reduce increased headache pain and pressure from cough. The pt returned demonstration and verbalized understanding. Instructions were provided orally with demonstration and in writing for home practice and carryover. Continued training in memory strategies, targeting say aloud strategies to increase attention and recall of where items are placed and intended actions. Introduced short interruption with a vallecillo word technique to promote recall of thoughts during conversations . Strategy includes briefly and politely interrupting her conversation partner with the request to remember a vallecillo word that represents the thought that was aroused during conversation. This strategy is aimed at reducing major interruptions, increasing attention for better delayed recall, and to preserve relationships. The pt was encouraged to explain the strategy to conversation partners, james her spouse, prior to use so that the conversation partners are aware of the strategy and can offer added support. The pt was in agreement with this. Assessment Patient Response to Treatment Good Rehab Potential Good Impairments Identified Cognitive-Linguistic Skills, Dysphagia Additional Impairments Identified Right side facial palsy; deafness in right ear; reduced attn & memory Progress Towards Goals Good Progress Assessment of Overall Progress Improving Assessment of Improvement The pt was highly receptive to these strategies and expressed intent to discuss with her for added support, which is encouraged. She was able to perform alternative cough techniques. Reviewed with Patient Goals,Progress Being Made,Home Exercise Program Patient/Caregiver Understanding Excellent Plan Amount of Therapy Recommended 1-2 Months Frequency of Treatment Once a Week Comment May taper over course of treatment Length of Session 45 Minutes Treatment Emphasis Next Session Cont external memory/org tools ; internal mem/attn strategies Therapeutic Contents Client Education,Home Exercise Program,Swallowing/Feeding, Other Additional Areas of Treatment Facial palsy Provided Patient/Caregiver Instruction Home Exercise Program,Plan of Care,Questions/Concerns Therapy Recommendations Continue with Current Program
--- NOTE | 2021-12-24 19:35 | ST.OPDS ---
Visit Care Team Role Provider Type ROBERT Parham Family Provider Non-Staff Primary Care Provider Address: [address] [place], [address] Manuelito Escudero MD Attending Provider Non-Staff Referring Provider Address: [address] [address], [place], [address] [employer] Treatment Note [employer] Treatment Note Start: 06/11/21 09:30 Freq: Status: Active Protocol: Document 12/24/21 19:33 SHAVON (Rec: 12/24/21 19:34 SHAVON [id number]) Speech Pathology Treatment Note Setting Treatment Setting Outpatient Care Visit Type Note Type Discharge Summary General Information Patient History The pt is a 40-yr old female 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 Prior to surgery, the pt had mildly reduced sensation in her throat (right side) but no other symptoms. 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 She reported difficulty chewing on right side with need of lingual sweep to clear right buccal pocketing. She has almost choked a couple of times when taking too big of bites. Now she is more cautious when eating. Has to pinch right side of lips to drink water to prevent anterior leakage. She also reported moderate loss of taste. Additionally, the pt 's right lid closes but very slowly and with effort. Abnormal blinking has led to dry eye, for which she takes eye drops and wears a patch as needed to retain moisture and prevent potential damage to corneal. The pt reported facial movement has improved slightly and that her surgeon anticipated complete recovery. Speech Therapy was ordered to speed recovery. Subjective Observations/Patient Presentation The pt was last seen in August and was unable to resume therapy d/t scheduling conflicts. She is discharged from services. Chief Complaint(s) Swallowing,Cognitive,Other Rehab Expectation/Goals: Patient Goals Resume to normal swallow function, facial movements & cognitive function Objective Short Term Goals 1. With collaboration with [employer] , the pt will develop external memory tools to improve ability to perform functional tasks. 2. The pt will demonstrate 80% consistent use of external memory tools to improve ability to perform functional tasks. 3. The pt will demonstrate understanding of internal attn /memory strategies by completing structured tasks with 80% accuracy. Custodial Goals 1. With use use of external attn/memory tools as needed, the pt will perform personal and family responsibilities as per PLOF, as measured by pt/ spouse report and clinician judgment. Plan Therapy Recommendations Discharge from Speech Therapy
== END 2021-12-25 12:24 ==
LOC: SP 15:30
PROVIDERS: Family Provider Nurse Practitioner Family; PCP Nurse Practitioner Family; Referring Provider Neurological Surgery; Visit Provider Neurological Surgery
DX: D32.9 Benign neoplasm of meninges, unspecified (principal)
CPT/HCPCS: 92507; 92526; 92610; 96125; 97129; 97130

== ENCOUNTER 2021-08-19 09:30 | Outpatient (RCR) | payer BC, SELFPAY ==
--- NOTE | 2021-06-10 10:25 | PT.OIE ---
Current Diagnoses Benign neoplasm of meninges, unspecified (06/10/21) Ataxic gait (06/10/21) Headache, unspecified (06/10/21) Past Surgical History History of third molar tooth extraction Visit Care Team Role Provider Type ROBERT Parham Family Provider Non-Staff Primary Care Provider Specialty: Family Practice Address: [address] [place], [address] Email: Manuelito Escudero MD Attending Provider Non-Staff Referring Provider Specialty: Medical Address: [address], [address] Email: Physical Therapy Initial Evaluation PT-OP-A Visit Information Start: 06/05/21 11:02 Freq: Status: Active Protocol: Document 06/10/21 09:45 AMB (Rec: 06/14/21 10:50 AMB [email or web address]) Out-Patient Physical Therapy Visit Information Visit Information Visit Type Initial Evaluation Visit Start Time 09:45 Visit Stop Time 10:45 Total Visit Minutes 60 Visit Number 1 PT-OP-B Current Condition Start: 06/05/21 11:02 Freq: Status: Active Protocol: Document 06/10/21 09:42 AMB (Rec: 06/10/21 10:06 AMB [id number]) Current Condition History of Current Condition Onset Date 05/27/21 Current Complaints R sided pain, dizziness s/p R meningioma resection History of Current Condition Nerve pain on R sided pain after surgery. Headaches multiple times per week pre surgery. Nerve pain started last Wednesday more notable at night (lightning strikes), taking a lot of gabapentin now . Is noticing facial droop, smile is not symmetrical- is going to speech therapy for that. Is not walking alone due to feeling off/dizzy. 3 Stairs going into single level home lives with . Doesn't feel steady. Dizziness- just moving eyes causes disorientation, moving head increases disorientation. Describes going to work at a high stress job, does use dual monitors, hasn't returned to driving. Tinnitis in R ear. Treatment Goals Patient/Caregiver Goals Reduce dizziness/pain Prior Functional Status Baseline Function- ADL's Independent Baseline Function- Mobility Independent Current Functional Impairments (Reported) Functional Limitations- ADL's Not driving, not walking alone Personal Factors Other Personal Factors That May Effect hypothyroid anemia, osteopenia Therapy/Recovery , depression PT-OP-C Subjective Start: 06/05/21 11:02 Freq: Status: Active Protocol: Document 06/10/21 09:45 AMB (Rec: 06/14/21 11:04 AMB [email or web address]) Patient Questionnaires ABC- Activity Specific Balance Confidence Scale ABC Score 56.5 ABC Functional Impairment 40 to <60% Impaired (Score 41- 60) Dizziness Handicap Inventory DHI Score 84 DHI Functional Impairment 80 to 99% Impaired (Score 80- 99) PT-OP-O Vestibular Start: 06/05/21 11:02 Freq: Status: Active Protocol: Document 06/10/21 10:30 AMB (Rec: 06/16/21 10:02 AMB [email or web address]) Vestibular Assessment Visual Testing Smooth Pursuits Horizontal R eye with difficulties with adduction Saccades Horizontal slow Thrust Head Positive Right Convergence Test Impaired DVA (Line Degradation) 2 Vestibular Function Tests mCTSIB Position 1 30 seconds mCTSIB Position 2 30 seconds increased ankle sway mCTSIB Position 3 30 seconds increased ankle sway mCTSIB Position 4 10 seconds PT-OP-Q Treatments Start: 06/05/21 11:02 Freq: Status: Active Protocol: Document 06/10/21 09:45 AMB (Rec: 06/14/21 11:04 AMB [email or web address]) Neuro Re-Education Treatment Vestibular Rehabilitation VOR Retraining Comments arms length, slow as tolerated pencil pushup Comments arms length as tolerated for convergence PT-OP-T Assessment and Plan Start: 06/05/21 11:02 Freq: Status: Active Protocol: Document 06/10/21 10:30 AMB (Rec: 06/16/21 10:17 AMB [email or web address]) Physical Therapy Assessment Rehab Potential Rehabilitation Potential Good Evaluation Complexity Number of Personal Factors/Comorbidities 1-2 Number of Body Systems Impaired 3 Clinical Presentation at Evaluation Evolving Impairments Impairments Balance,Pain,Vestibular Goals Three Impairment Headache Short Term Goal (STG) Alena will read with headache of 2/10 or less. STG Duration 4 weeks Two Impairment Vestibular Short Term Goal (STG) Alena will be independent with a vestibular HEP. STG Duration 4 weeks Media Sales Consultant Goal (LTG) Alena will walk with horizontal head turns without veering or LOB. LTG Duration 8 weeks One Impairment Balance Short Term Goal (STG) Alena will show improved balance by being able to standing on foam with eyes closed for 30 seconds. STG Duration 4 weeks Penitentiary Goal (LTG) Alena will walk over uneven terrain (curbs, grass, gravel) without LOB and without fear of falling. LTG Duration 8 weeks Assessment Summary Assessment Alena attends physical therapy with right meningioma resection with resultant hearing loss, right vestibular loss, right facial paralysis, and right sided headache. 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 She will benefit from physical therapy to accommodate to the loss of her right sided vestibular function and assist with reduction in her pain so that she can return to community ambulation, working (needs to look at dual screens ), and improve her balance to reduce her risk of falling. Physical Therapy Plan Frequency and Duration Frequency of Treatment 2x/Week Duration of Treatment 8 weeks Plan of Care Start Date 06/10/21 Plan of Care End Date 08/05/21 Therapeutic Interventions Therapeutic Interventions Home Exercise Program,Manual Therapy,Neuromuscular Re- education,Self-Care/Home Management,Therapeutic Activities,Therapeutic Exercises,Vestibular Rehabilitation Next Visit Focus/Plan Next Note Type Treatment Note Next Visit Plan Establish HEP review pencil pushups and VOR
--- NOTE | 2021-06-10 10:26 | PT.OPPOC ---
Physical, Occupational & Speech Therapy At [facility] Current Diagnoses Benign neoplasm of meninges, unspecified (06/10/21) Ataxic gait (06/10/21) Headache, unspecified (06/10/21) Visit Care Team Role Provider Type ROBERT Parham Family Provider Non-Staff Primary Care Provider Specialty: Family Practice Address: [address] [place] [address], [address] Email: Manuelito Escudero MD Attending Provider Non-Staff Referring Provider Specialty: Medical Address: [address] [address], [place], [address] Email: Plan Of Care PT-OP-T Assessment and Plan Start: 06/05/21 11:02 Freq: Status: Active Protocol: Document 06/10/21 10:30 AMB (Rec: 06/16/21 10:17 AMB [email or web address]) Physical Therapy Assessment Rehab Potential Rehabilitation Potential Good Evaluation Complexity Number of Personal Factors/Comorbidities 1-2 Number of Body Systems Impaired 3 Clinical Presentation at Evaluation Evolving Impairments Impairments Balance,Pain,Vestibular Goals Three Impairment Headache Short Term Goal (STG) Alena will read with headache of 2/10 or less. STG Duration 4 weeks Two Impairment Vestibular Short Term Goal (STG) Alena will be independent with a vestibular HEP. STG Duration 4 weeks Loading Unit Operator Crimping Goal (LTG) Alena will walk with horizontal head turns without veering or LOB. LTG Duration 8 weeks One Impairment Balance Short Term Goal (STG) Alena will show improved balance by being able to standing on foam with eyes closed for 30 seconds. STG Duration 4 weeks Loading Unit Operator Crimping Goal (LTG) Alena will walk over uneven terrain (curbs, grass, gravel) without LOB and without fear of falling. LTG Duration 8 weeks Assessment Summary Assessment Alena attends physical therapy with right meningioma resection with resultant hearing loss, right vestibular loss, right facial paralysis, and right sided headache. 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 She will benefit from physical therapy to accomodate to the loss of her right sided vestibular function and assist with reduction in her pain so that she can return to community ambulation, working (needs to look at dual screens ), and improve her balance to reduce her risk of falling. Physical Therapy Plan Frequency and Duration Frequency of Treatment 2x/Week Duration of Treatment 8 weeks Plan of Care Start Date 06/10/21 Plan of Care End Date 08/05/21 Therapeutic Interventions Therapeutic Interventions Home Exercise Program,Manual Therapy,Neuromuscular Re- education,Self-Care/Home Management,Therapeutic Activities,Therapeutic Exercises,Vestibular Rehabilitation Next Visit Focus/Plan Next Note Type Treatment Note Next Visit Plan Establish HEP review pencil pushups and VOR Plan of Care Dates Plan of Care Start Date 06/10/21 Plan of Care End Date 08/05/21 Electronically Signed by: Yvonne Villanueva, PT 06/16/21 [id number] Please Sign and Return: I have reviewed this Plan of Care and certify that the skilled therapy services above are required to meet the patient?s needs. Physician Signature Date Printed Name and Credentials Clinical Instructor Signature Printed Name and Credentials
--- NOTE | 2021-06-19 10:26 | PT.OTN ---
Current Diagnoses Benign neoplasm of meninges, unspecified (06/19/21) Ataxic gait (06/19/21) Headache, unspecified (06/19/21) Physical Therapy Treatment Note PT-OP-A Visit Information Start: 06/05/21 11:02 Freq: Status: Active Protocol: Document 06/19/21 09:05 AMB (Rec: 06/19/21 10:26 AMB [id number]) Out-Patient Physical Therapy Visit Information Visit Information Visit Type Treatment Note Visit Start Time 09:00 Visit Stop Time 09:45 Total Visit Minutes 45 Visit Number 2 PT-OP-B Current Condition Start: 06/05/21 11:02 Freq: Status: Active Protocol: Document 06/10/21 09:42 AMB (Rec: 06/10/21 10:06 AMB [id number]) Current Condition History of Current Condition Onset Date 05/27/21 Current Complaints R sided pain, dizziness s/p R meningioma resection History of Current Condition Nerve pain on R sided pain after surgery. Headaches multiple times per week pre surgery. Nerve pain started last wednesday more notable at night (lightning strikes), taking a lot of gabapentin now . Is noticing facial droop, smile is not symmetrical- is going to speech therapy for that. Is not walking alone due to feeling off/dizzy. 3 Stairs going into single level home lives with . Doesn't feel steady. Dizziness- just moving eyes causes disoritientation, moving head increases disorientation. Describes going to work at a high stress job, does use dual monitors, hasn't returned to driving. Tinnitis in R ear. Treatment Goals Patient/Caregiver Goals Reduce dizziness/pain Prior Functional Status Baseline Function- ADL's Independent Baseline Function- Mobility Independent Current Functional Impairments (Reported) Functional Limitations- ADL's Not driving, not walking alone Personal Factors Other Personal Factors That May Effect hypothyroid anemia, osteopenia Therapy/Recovery , depression PT-OP-C Subjective Start: 06/05/21 11:02 Freq: Status: Active Protocol: Document 06/19/21 09:05 AMB (Rec: 06/19/21 10:26 AMB [id number]) OP-PT Subjective Patient Comments Patient Comments Lightning pain is mostly at night and that seems to be improving. Fatigue is a big deal. Has been doing exercises. PT-OP-O Vestibular Start: 06/05/21 11:02 Freq: Status: Active Protocol: Document 06/10/21 10:30 AMB (Rec: 06/16/21 10:02 AMB [email or web address]) Vestibular Assessment Visual Testing Smooth Pursuits Horizontal R eye with difficulting with adduction Saccades Horizontal slow Thrust Head Positive Right Convergence Test Impaired DVA (Line Degradation) 2 Vestibular Function Tests mCTSIB Position 1 30 seconds mCTSIB Position 2 30 seconds increased ankle sway mCTSIB Position 3 30 seconds increased ankle sway mCTSIB Position 4 10 seconds PT-OP-Q Treatments Start: 06/05/21 11:02 Freq: Status: Active Protocol: Document 06/19/21 09:05 AMB (Rec: 06/19/21 10:26 AMB [id number]) Neuro Re-Education Treatment Balance Activities 1 Details modified tandem Comments HT EO/ HC Vestibular Rehabilitation Targets Details seated Background simple Distance From Target armslength Speed self selected,slow X2 Viewing Details standing WBOS Background simple Distance From Target armslength Speed self selected slow VOR Retraining Comments arms length, slow as tolerated pencil pushup Comments arms length as tolerated for convergence Other Activities 1 Details walking with head turns Comments horizontal and vertical PT-OP-T Assessment and Plan Start: 06/05/21 11:02 Freq: Status: Active Protocol: Document 06/19/21 09:05 AMB (Rec: 06/19/21 10:26 AMB [id number]) Physical Therapy Assessment Goals Three Impairment Headache Short Term Goal (STG) Alena will read with headache of 2/10 or less. STG Duration 4 weeks Two Impairment Vestibular Short Term Goal (STG) Alena will be independent with a vestibular HEP. STG Duration 4 weeks Chief Marketing Officer Goal (LTG) Alena will walk with horizontal head turns without veering or LOB. LTG Duration 8 weeks One Impairment Balance Short Term Goal (STG) Alena will show improved balance by being able to standing on foam with eyes closed for 30 seconds. STG Duration 4 weeks Chief Marketing Officer Goal (LTG) Alena will walk over uneven terrain (curbs, grass, gravel) without LOB and without fear of falling. LTG Duration 8 weeks Assessment Summary Assessment Alena is doing her exercises, and doing the exercises her physician prescribed, did give cues on head speed, not going into peripheral vision. Physical Therapy Plan Next Visit Focus/Plan Next Visit Plan Review VOR 1 and 2, pencil pushups, tandem stance EO HT, EC--try metronome next visit
--- NOTE | 2021-06-25 10:20 | PT.OTN ---
Current Diagnoses Benign neoplasm of meninges, unspecified (06/25/21) Ataxic gait (06/25/21) Headache, unspecified (06/25/21) Physical Therapy Treatment Note PT-OP-A Visit Information Start: 06/05/21 11:02 Freq: Status: Active Protocol: Document 06/25/21 09:00 AMB (Rec: 06/25/21 09:43 AMB [id number]) Out-Patient Physical Therapy Visit Information Visit Information Visit Type Treatment Note Visit Start Time 09:00 Visit Stop Time 09:45 Total Visit Minutes 45 Visit Number 3 PT-OP-B Current Condition Start: 06/05/21 11:02 Freq: Status: Active Protocol: Document 06/10/21 09:42 AMB (Rec: 06/10/21 10:06 AMB [id number]) Current Condition History of Current Condition Onset Date 05/27/21 Current Complaints R sided pain, dizziness s/p R meningioma resection History of Current Condition Nerve pain on R sided pain after surgery. Headaches multiple times per week pre surgery. Nerve pain started last wednesday more notable at night (lightning strikes), taking a lot of gabapentin now . Is noticing facial droop, smile is not symmetrical- is going to speech therapy for that. Is not walking alone due to feeling off/dizzy. 3 Stairs going into single level home lives with . Doesn't feel steady. Dizziness- just moving eyes causes disoritientation, moving head increases disorientation. Describes going to work at a high stress job, does use dual monitors, hasn't returned to driving. Tinnitis in R ear. Treatment Goals Patient/Caregiver Goals Reduce dizziness/pain Prior Functional Status Baseline Function- ADL's Independent Baseline Function- Mobility Independent Current Functional Impairments (Reported) Functional Limitations- ADL's Not driving, not walking alone Personal Factors Other Personal Factors That May Effect hypothyroid anemia, osteopenia Therapy/Recovery , depression PT-OP-C Subjective Start: 06/05/21 11:02 Freq: Status: Active Protocol: Document 06/25/21 09:00 AMB (Rec: 06/25/21 09:43 AMB [id number]) OP-PT Subjective Patient Comments Patient Comments Pt is having a pretty bad headache the last PT-OP-O Vestibular Start: 06/05/21 11:02 Freq: Status: Active Protocol: Document 06/10/21 10:30 AMB (Rec: 06/16/21 10:02 AMB [email or web address]) Vestibular Assessment Visual Testing Smooth Pursuits Horizontal R eye with difficulting with adduction Saccades Horizontal slow Thrust Head Positive Right Convergence Test Impaired DVA (Line Degradation) 2 Vestibular Function Tests mCTSIB Position 1 30 seconds mCTSIB Position 2 30 seconds increased ankle sway mCTSIB Position 3 30 seconds increased ankle sway mCTSIB Position 4 10 seconds PT-OP-Q Treatments Start: 06/05/21 11:02 Freq: Status: Active Protocol: Document 06/25/21 10:09 AMB (Rec: 06/25/21 10:19 AMB [email or web address]) Neuro Re-Education Treatment Balance Activities 1 Details modified tandem Comments HT EO/ HC Vestibular Rehabilitation Targets Details seated Background simple Distance From Target armslength Speed self selected,slow X2 Viewing Details standing WBOS Background simple Distance From Target armslength Speed self selected slow VOR Retraining Comments arms length, increased to 64bpm, added challenging background pencil pushup Comments arms length as tolerated for convergence Other Activities 1 Details walking with head turns Comments horizontal and vertical, added diagonal PT-OP-T Assessment and Plan Start: 06/05/21 11:02 Freq: Status: Active Protocol: Document 06/25/21 09:00 AMB (Rec: 06/25/21 09:43 AMB [id number]) Physical Therapy Assessment Assessment Summary Assessment Alena continues to have the most challenge with close up vision activities. Veering with head turns continues but not LOB. Facial n inflammation continues to make things challenging as pt is not blinking/producing tears enough on the right eye. Physical Therapy Plan Next Visit Focus/Plan Next Note Type Treatment Note Next Visit Plan Progress VOR speed and difficulty of background
--- NOTE | 2021-07-02 10:30 | PT.OTN ---
Current Diagnoses Benign neoplasm of meninges, unspecified (07/02/21) Ataxic gait (07/02/21) Headache, unspecified (07/02/21) Physical Therapy Treatment Note PT-OP-A Visit Information Start: 06/05/21 11:02 Freq: Status: Active Protocol: Document 07/02/21 09:45 AMB (Rec: 07/02/21 10:28 AMB [id number]) Out-Patient Physical Therapy Visit Information Visit Information Visit Type Treatment Note Visit Start Time 09:45 Visit Stop Time 10:30 Total Visit Minutes 45 Visit Number 4 PT-OP-B Current Condition Start: 06/05/21 11:02 Freq: Status: Active Protocol: Document 06/10/21 09:42 AMB (Rec: 06/10/21 10:06 AMB [id number]) Current Condition History of Current Condition Onset Date 05/27/21 Current Complaints R sided pain, dizziness s/p R meningioma resection History of Current Condition Nerve pain on R sided pain after surgery. Headaches multiple times per week pre surgery. Nerve pain started last wednesday more notable at night (lightning strikes), taking a lot of gabapentin now . Is noticing facial droop, smile is not symmetrical- is going to speech therapy for that. Is not walking alone due to feeling off/dizzy. 3 Stairs going into single level home lives with . Doesn't feel steady. Dizziness- just moving eyes causes disoritientation, moving head increases disorientation. Describes going to work at a high stress job, does use dual monitors, hasn't returned to driving. Tinnitis in R ear. Treatment Goals Patient/Caregiver Goals Reduce dizziness/pain Prior Functional Status Baseline Function- ADL's Independent Baseline Function- Mobility Independent Current Functional Impairments (Reported) Functional Limitations- ADL's Not driving, not walking alone Personal Factors Other Personal Factors That May Effect hypothyroid anemia, osteopenia Therapy/Recovery , depression PT-OP-C Subjective Start: 06/05/21 11:02 Freq: Status: Active Protocol: Document 07/02/21 09:45 AMB (Rec: 07/02/21 10:28 AMB [id number]) OP-PT Subjective Patient Comments Patient Comments Pt continues to have headaches and tinnitis. PT-OP-O Vestibular Start: 06/05/21 11:02 Freq: Status: Active Protocol: Document 06/10/21 10:30 AMB (Rec: 06/16/21 10:02 AMB [email or web address]) Vestibular Assessment Visual Testing Smooth Pursuits Horizontal R eye with difficulting with adduction Saccades Horizontal slow Thrust Head Positive Right Convergence Test Impaired DVA (Line Degradation) 2 Vestibular Function Tests mCTSIB Position 1 30 seconds mCTSIB Position 2 30 seconds increased ankle sway mCTSIB Position 3 30 seconds increased ankle sway mCTSIB Position 4 10 seconds PT-OP-Q Treatments Start: 06/05/21 11:02 Freq: Status: Active Protocol: Document 07/02/21 09:45 AMB (Rec: 07/02/21 10:28 AMB [id number]) Neuro Re-Education Treatment Balance Activities 1 Details modified tandem Comments HT EO/ HC Vestibular Rehabilitation Targets Details standing NBOS Background simple Distance From Target armslength Speed self selected,slow X2 Viewing Details standing NBOS Background simple Distance From Target armslength Speed self selected slow pencil pushup Comments arms length as tolerated for convergence PT-OP-T Assessment and Plan Start: 06/05/21 11:02 Freq: Status: Active Protocol: Document 07/02/21 09:45 AMB (Rec: 07/02/21 10:28 AMB [id number]) Physical Therapy Assessment Goals Three Impairment Headache Short Term Goal (STG) Alena will read with headache of 2/10 or less. STG Duration 4 weeks Two Impairment Vestibular Short Term Goal (STG) Alena will be independent with a vestibular HEP. STG Duration 4 weeks Continuous Pillowcase Cutter Goal (LTG) Alena will walk with horizontal head turns without veering or LOB. LTG Duration 8 weeks One Impairment Balance Short Term Goal (STG) Alena will show improved balance by being able to standing on foam with eyes closed for 30 seconds. STG Duration 4 weeks Continuous Pillowcase Cutter Goal (LTG) Alena will walk over uneven terrain (curbs, grass, gravel) without LOB and without fear of falling. LTG Duration 8 weeks Assessment Summary Assessment Alena is doing well with her exercises, but continues to have double vision with convergence. Pencil pushups are improving, but continue to cause eye fatigue. Physical Therapy Plan Next Visit Focus/Plan Next Note Type Treatment Note Next Visit Plan Progress VOR speed and difficulty of background
--- NOTE | 2021-07-08 16:02 | PT.OTN ---
Current Diagnoses Benign neoplasm of meninges, unspecified (07/08/21) Ataxic gait (07/08/21) Headache, unspecified (07/08/21) Physical Therapy Treatment Note PT-OP-A Visit Information Start: 06/05/21 11:02 Freq: Status: Active Protocol: Document 07/08/21 14:43 AMB (Rec: 07/08/21 15:31 AMB [id number]) Out-Patient Physical Therapy Visit Information Visit Information Visit Type Treatment Note Visit Start Time 14:40 Visit Stop Time 15:15 Total Visit Minutes 35 Visit Number 5 PT-OP-B Current Condition Start: 06/05/21 11:02 Freq: Status: Active Protocol: Document 06/10/21 09:42 AMB (Rec: 06/10/21 10:06 AMB [id number]) Current Condition History of Current Condition Onset Date 05/27/21 Current Complaints R sided pain, dizziness s/p R meningioma resection History of Current Condition Nerve pain on R sided pain after surgery. Headaches multiple times per week pre surgery. Nerve pain started last wednesday more notable at night (lightning strikes), taking a lot of gabapentin now . Is noticing facial droop, smile is not symmetrical- is going to speech therapy for that. Is not walking alone due to feeling off/dizzy. 3 Stairs going into single level home lives with . Doesn't feel steady. Dizziness- just moving eyes causes disoritientation, moving head increases disorientation. Describes going to work at a high stress job, does use dual monitors, hasn't returned to driving. Tinnitis in R ear. Treatment Goals Patient/Caregiver Goals Reduce dizziness/pain Prior Functional Status Baseline Function- ADL's Independent Baseline Function- Mobility Independent Current Functional Impairments (Reported) Functional Limitations- ADL's Not driving, not walking alone Personal Factors Other Personal Factors That May Effect hypothyroid anemia, osteopenia Therapy/Recovery , depression PT-OP-C Subjective Start: 06/05/21 11:02 Freq: Status: Active Protocol: Document 07/08/21 15:59 AMB (Rec: 07/08/21 16:00 AMB [email or web address]) OP-PT Subjective Patient Comments Patient Comments Alena continues to have eye fatigue, headache sx but is improving with her HEP. PT-OP-O Vestibular Start: 06/05/21 11:02 Freq: Status: Active Protocol: Document 06/10/21 10:30 AMB (Rec: 06/16/21 10:02 AMB [email or web address]) Vestibular Assessment Visual Testing Smooth Pursuits Horizontal R eye with difficulting with adduction Saccades Horizontal slow Thrust Head Positive Right Convergence Test Impaired DVA (Line Degradation) 2 Vestibular Function Tests mCTSIB Position 1 30 seconds mCTSIB Position 2 30 seconds increased ankle sway mCTSIB Position 3 30 seconds increased ankle sway mCTSIB Position 4 10 seconds PT-OP-Q Treatments Start: 06/05/21 11:02 Freq: Status: Active Protocol: Document 07/08/21 14:30 AMB (Rec: 07/08/21 15:59 AMB [email or web address]) Neuro Re-Education Treatment Balance Activities 2 Details foam balance Reps/Duration 30x4 Comments EC 1 Details modified tandem Comments HT EO/ HC Vestibular Rehabilitation Targets Details standing NBOS Background simple Distance From Target armslength Speed self selected,slow X2 Viewing Details standing NBOS Background simple Distance From Target armslength Speed self selected slow VOR Retraining Comments challenging background pencil pushup Comments arms length as tolerated for convergence PT-OP-T Assessment and Plan Start: 06/05/21 11:02 Freq: Status: Active Protocol: Document 07/08/21 14:43 AMB (Rec: 07/08/21 15:31 AMB [id number]) Physical Therapy Assessment Goals Three Impairment Headache Short Term Goal (STG) Alena will read with headache of 2/10 or less. STG Duration 4 weeks Two Impairment Vestibular Short Term Goal (STG) Alena will be independent with a vestibular HEP. STG Duration 4 weeks Snf Goal (LTG) Alena will walk with horizontal head turns without veering or LOB. LTG Duration 8 weeks One Impairment Balance Short Term Goal (STG) Alena will show improved balance by being able to standing on foam with eyes closed for 30 seconds. STG Duration 4 weeks Energy Conservation Technician Goal (LTG) Alena will walk over uneven terrain (curbs, grass, gravel) without LOB and without fear of falling. LTG Duration 8 weeks Assessment Summary Assessment Alena did better today with her balance exercises, vestibular exercises remain challenging due to eye fatigue . Physical Therapy Plan Next Visit Focus/Plan Next Note Type Treatment Note Next Visit Plan Progress vestibular visual exercises
--- NOTE | 2021-07-16 15:31 | PT.OTN ---
Current Diagnoses Benign neoplasm of meninges, unspecified (07/16/21) Ataxic gait (07/16/21) Headache, unspecified (07/16/21) Physical Therapy Treatment Note PT-OP-A Visit Information Start: 06/05/21 11:02 Freq: Status: Active Protocol: Document 07/16/21 14:30 AMB (Rec: 07/16/21 15:31 AMB [id number]) Out-Patient Physical Therapy Visit Information Visit Information Visit Type Treatment Note Visit Start Time 14:30 Visit Stop Time 15:15 Total Visit Minutes 45 Visit Number 6 PT-OP-B Current Condition Start: 06/05/21 11:02 Freq: Status: Active Protocol: Document 06/10/21 09:42 AMB (Rec: 06/10/21 10:06 AMB [id number]) Current Condition History of Current Condition Onset Date 05/27/21 Current Complaints R sided pain, dizziness s/p R meningioma resection History of Current Condition Nerve pain on R sided pain after surgery. Headaches multiple times per week pre surgery. Nerve pain started last wednesday more notable at night (lightning strikes), taking a lot of gabapentin now . Is noticing facial droop, smile is not symmetrical- is going to speech therapy for that. Is not walking alone due to feeling off/dizzy. 3 Stairs going into single level home lives with . Doesn't feel steady. Dizziness- just moving eyes causes disoritientation, moving head increases disorientation. Describes going to work at a high stress job, does use dual monitors, hasn't returned to driving. Tinnitis in R ear. Treatment Goals Patient/Caregiver Goals Reduce dizziness/pain Prior Functional Status Baseline Function- ADL's Independent Baseline Function- Mobility Independent Current Functional Impairments (Reported) Functional Limitations- ADL's Not driving, not walking alone Personal Factors Other Personal Factors That May Effect hypothyroid anemia, osteopenia Therapy/Recovery , depression PT-OP-C Subjective Start: 06/05/21 11:02 Freq: Status: Active Protocol: Document 07/16/21 14:30 AMB (Rec: 07/16/21 15:31 AMB [id number]) OP-PT Subjective Patient Comments Patient Comments Went [place] for about 20 minutes this morning. Nauseous afterwards for the whole day. PT-OP-O Vestibular Start: 06/05/21 11:02 Freq: Status: Active Protocol: Document 06/10/21 10:30 AMB (Rec: 06/16/21 10:02 AMB [email or web address]) Vestibular Assessment Visual Testing Smooth Pursuits Horizontal R eye with difficulting with adduction Saccades Horizontal slow Thrust Head Positive Right Convergence Test Impaired DVA (Line Degradation) 2 Vestibular Function Tests mCTSIB Position 1 30 seconds mCTSIB Position 2 30 seconds increased ankle sway mCTSIB Position 3 30 seconds increased ankle sway mCTSIB Position 4 10 seconds PT-OP-Q Treatments Start: 06/05/21 11:02 Freq: Status: Active Protocol: Document 07/16/21 14:30 AMB (Rec: 07/16/21 15:31 AMB [id number]) Neuro Re-Education Treatment Balance Activities 2 Details foam balance Reps/Duration 30x4 Comments EC Vestibular Rehabilitation VOR Retraining Comments challenging background, with varied footposition, semi tandem, NBOS Other Activities 1 Comments walking with horizontal and vertical head turns Self-Care/Home Management Treatment Activities Self-Care/Home Management Activities instruction in scar massage PT-OP-T Assessment and Plan Start: 06/05/21 11:02 Freq: Status: Active Protocol: Document 07/16/21 14:30 AMB (Rec: 07/16/21 15:31 AMB [id number]) Physical Therapy Assessment Assessment Summary Assessment Alena's walking is improving, even with head turns. Foam balance she did tend to lose balance backwards but was able to catch herself independently. Discussed scar massage. Pt's fatigue is a bit limiting factor for her.
--- NOTE | 2021-07-23 11:56 | PT.OTN ---
Current Diagnoses Benign neoplasm of meninges, unspecified (07/23/21) Ataxic gait (07/23/21) Headache, unspecified (07/23/21) Physical Therapy Treatment Note PT-OP-A Visit Information Start: 06/05/21 11:02 Freq: Status: Active Protocol: Document 07/23/21 11:15 AMB (Rec: 07/23/21 11:30 AMB [id number]) Out-Patient Physical Therapy Visit Information Visit Information Visit Type Treatment Note Visit Start Time 11:15 Visit Stop Time 12:00 Total Visit Minutes 45 Visit Number 7 PT-OP-B Current Condition Start: 06/05/21 11:02 Freq: Status: Active Protocol: Document 06/10/21 09:42 AMB (Rec: 06/10/21 10:06 AMB [id number]) Current Condition History of Current Condition Onset Date 05/27/21 Current Complaints R sided pain, dizziness s/p R meningioma resection History of Current Condition Nerve pain on R sided pain after surgery. Headaches multiple times per week pre surgery. Nerve pain started last wednesday more notable at night (lightning strikes), taking a lot of gabapentin now . Is noticing facial droop, smile is not symmetrical- is going to speech therapy for that. Is not walking alone due to feeling off/dizzy. 3 Stairs going into single level home lives with . Doesn't feel steady. Dizziness- just moving eyes causes disoritientation, moving head increases disorientation. Describes going to work at a high stress job, does use dual monitors, hasn't returned to driving. Tinnitis in R ear. Treatment Goals Patient/Caregiver Goals Reduce dizziness/pain Prior Functional Status Baseline Function- ADL's Independent Baseline Function- Mobility Independent Current Functional Impairments (Reported) Functional Limitations- ADL's Not driving, not walking alone Personal Factors Other Personal Factors That May Effect hypothyroid anemia, osteopenia Therapy/Recovery , depression PT-OP-C Subjective Start: 06/05/21 11:02 Freq: Status: Active Protocol: Document 07/23/21 11:15 AMB (Rec: 07/23/21 11:30 AMB [id number]) OP-PT Subjective Patient Comments Patient Comments Has been working on massaging her scar and that has been ok, still having fatigue and headache. Walking almost every day. PT-OP-O Vestibular Start: 06/05/21 11:02 Freq: Status: Active Protocol: Document 06/10/21 10:30 AMB (Rec: 06/16/21 10:02 AMB [email or web address]) Vestibular Assessment Visual Testing Smooth Pursuits Horizontal R eye with difficulting with adduction Saccades Horizontal slow Thrust Head Positive Right Convergence Test Impaired DVA (Line Degradation) 2 Vestibular Function Tests mCTSIB Position 1 30 seconds mCTSIB Position 2 30 seconds increased ankle sway mCTSIB Position 3 30 seconds increased ankle sway mCTSIB Position 4 10 seconds PT-OP-Q Treatments Start: 06/05/21 11:02 Freq: Status: Active Protocol: Document 07/23/21 11:15 AMB (Rec: 07/23/21 11:30 AMB [id number]) Cardio Equipment Bicycle (Upright) Duration (Minutes) 6 Resistance 6 Seat Position 5 Gym Equipment Shuttle Balance 1 Details BLUE Reps/Duration 5 min Neuro Re-Education Treatment Balance Activities 2 Details foam balance Reps/Duration 30x4 Comments EC 1 Details modified tandem Comments HT EO/ HC Vestibular Rehabilitation Targets Details standing NBOS Background simple Distance From Target armslength Speed self selected,slow X2 Viewing Details standing NBOS Background simple Distance From Target armslength Speed self selected slow pencil pushup Comments arms length as tolerated for convergence Other Activities 1 Comments walking with horizontal and vertical head turns PT-OP-T Assessment and Plan Start: 06/05/21 11:02 Freq: Status: Active Protocol: Document 07/23/21 11:15 AMB (Rec: 07/23/21 11:30 AMB [id number]) Physical Therapy Assessment Goals Three Impairment Headache Short Term Goal (STG) Alena will read with headache of 2/10 or less. STG Duration 4 weeks Two Impairment Vestibular Short Term Goal (STG) Alena will be independent with a vestibular HEP. STG Duration 4 weeks Loan Services Professional Goal (LTG) Alena will walk with horizontal head turns without veering or LOB. LTG Duration 8 weeks One Impairment Balance Short Term Goal (STG) Alena will show improved balance by being able to standing on foam with eyes closed for 30 seconds. STG Duration 4 weeks [employer] Services Professional Goal (LTG) Alena will walk over uneven terrain (curbs, grass, gravel) without LOB and without fear of falling. LTG Duration 8 weeks Assessment Summary Assessment Alena is tolerating more activity and balance, but gets overloaded easily. Physical Therapy Plan Next Visit Focus/Plan Next Note Type Treatment Note Next Visit Plan Progress vestibular visual exercises
--- NOTE | 2021-08-19 10:08 | PT.OTN ---
Current Diagnoses Benign neoplasm of meninges, unspecified (08/19/21) Ataxic gait (08/19/21) Headache, unspecified (08/19/21) Physical Therapy Treatment Note PT-OP-A Visit Information Start: 06/05/21 11:02 Freq: Status: Active Protocol: Document 08/19/21 09:30 AMB (Rec: 08/19/21 10:15 AMB [id number]) Out-Patient Physical Therapy Visit Information Visit Information Visit Type Progress Note Visit Start Time 09:00 Visit Stop Time 09:45 Total Visit Minutes 45 Visit Number 8 PT-OP-B Current Condition Start: 06/05/21 11:02 Freq: Status: Active Protocol: Document 06/10/21 09:42 AMB (Rec: 06/10/21 10:06 AMB [id number]) Current Condition History of Current Condition Onset Date 05/27/21 Current Complaints R sided pain, dizziness s/p R meningioma resection History of Current Condition Nerve pain on R sided pain after surgery. Headaches multiple times per week pre surgery. Nerve pain started last wednesday more notable at night (lightning strikes), taking a lot of gabapentin now . Is noticing facial droop, smile is not symmetrical- is going to speech therapy for that. Is not walking alone due to feeling off/dizzy. 3 Stairs going into single level home lives with . Doesn't feel steady. Dizziness- just moving eyes causes disoritientation, moving head increases disorientation. Describes going to work at a high stress job, does use dual monitors, hasn't returned to driving. Tinnitis in R ear. Treatment Goals Patient/Caregiver Goals Reduce dizziness/pain Prior Functional Status Baseline Function- ADL's Independent Baseline Function- Mobility Independent Current Functional Impairments (Reported) Functional Limitations- ADL's Not driving, not walking alone Personal Factors Other Personal Factors That May Effect hypothyroid anemia, osteopenia Therapy/Recovery , depression PT-OP-C Subjective Start: 06/05/21 11:02 Freq: Status: Active Protocol: Document 08/19/21 09:30 AMB (Rec: 08/19/21 10:15 AMB [id number]) OP-PT Subjective Patient Comments Patient Comments Walking 15-20 minutes per day. Headaches most days. Does PT exercises 5x/week. Takes a lot of breaks throughout the day, gets tired (mental fatigue). PT-OP-O Vestibular Start: 06/05/21 11:02 Freq: Status: Active Protocol: Document 06/10/21 10:30 AMB (Rec: 06/16/21 10:02 AMB [id number]) Vestibular Assessment Visual Testing Smooth Pursuits Horizontal R eye with difficulting with adduction Saccades Horizontal slow Thrust Head Positive Right Convergence Test Impaired DVA (Line Degradation) 2 Vestibular Function Tests mCTSIB Position 1 30 seconds mCTSIB Position 2 30 seconds increased ankle sway mCTSIB Position 3 30 seconds increased ankle sway mCTSIB Position 4 10 seconds PT-OP-Q Treatments Start: 06/05/21 11:02 Freq: Status: Active Protocol: Document 08/19/21 09:30 AMB (Rec: 08/29/21 10:08 AMB [id number]) Therapeutic Exercises Sitting Exercises 1 Sitting Exercise Name Levator scap stretch Reps/Minutes 30x3 Comments cues for form Standing Exercises 1 Standing Exercise Name bent over row Resistance 5# Reps/Minutes 2x10 Neuro Re-Education Treatment Balance Activities 2 Details foam balance Reps/Duration 30x4 Comments EC 1 Details modified tandem Comments HT EO/ HC Vestibular Rehabilitation X2 Viewing Details standing NBOS Background simple Distance From Target armslength Speed self selected slow VOR Retraining Comments challenging background, with varied footposition, semi tandem, NBOS Other Activities 1 Comments walking with horizontal and vertical head turns PT-OP-T Assessment and Plan Start: 06/05/21 11:02 Freq: Status: Active Protocol: Document 08/19/21 09:30 AMB (Rec: 08/19/21 10:15 AMB [id number]) Physical Therapy Assessment Goals Three Impairment Headache Short Term Goal (STG) Alean will read with headache of 2/10 or less. STG Duration 4 weeks-- NOT MET Two Impairment Vestibular Short Term Goal (STG) Alena will be independent with a vestibular HEP. STG Duration 4 weeks-- PROGRESS MADE Group Home Goal (LTG) Alena will walk with horizontal head turns without veering or LOB. LTG Duration MET One Impairment Balance Short Term Goal (STG) Alena will show improved balance by being able to standing on foam with eyes closed for 30 seconds. STG Duration MET Wet Process Miller Head Goal (LTG) Alena will walk over uneven terrain (curbs, grass, gravel) without LOB and without fear of falling. LTG Duration MET Assessment Summary Assessment Alena's facial nerve issues continue to make life challenging for her (with tear production etc.). She is continuing to have a headache that is quite limiting for her , and we did instruct her in appropriate neck/shoulder exercises today to try to take some of the strain off of levator scap and upper trap. Continued to discuss posture. She is progressing with tolerance for VOR exercises, but continues to need to move her head fairly slowly to avoid blurry vision. We have decreased her frequency of treatment due to insurance/ financial concerns. Physical Therapy Plan Frequency and Duration Frequency of Treatment Every Other Week Duration of Treatment 12 weeks Plan of Care Start Date 08/05/21 Plan of Care End Date 10/28/21 Therapeutic Interventions Therapeutic Interventions Home Exercise Program,Manual Therapy,Neuromuscular Re- education,Self-Care/Home Management,Therapeutic Activities,Therapeutic Exercises,Vestibular Rehabilitation Modalities Cold Pack/Ice Massage,Electric Stimulation,Hot Packs Next Visit Focus/Plan Next Note Type Treatment Note Next Visit Plan Progress vestibular, continue to work to reduce orthopedic components of headache
--- NOTE | 2021-08-19 10:09 | PT.OPPOC ---
Physical, Occupational & Speech Therapy At [facility] Current Diagnoses Benign neoplasm of meninges, unspecified (08/19/21) Ataxic gait (08/19/21) Headache, unspecified (08/19/21) Visit Care Team Role Provider Type ROBERT Parham Family Provider Non-Staff Primary Care Provider Specialty: Family Practice Address: [address] [place], [address] Email: Manuelito Escudero MD Attending Provider Non-Staff Referring Provider Specialty: Medical Address: [address] [address], [place], [address] Email: Plan Of Care PT-OP-T Assessment and Plan Start: 06/05/21 11:02 Freq: Status: Active Protocol: Document 08/19/21 09:30 AMB (Rec: 08/19/21 10:15 AMB [id number]) Physical Therapy Assessment Goals Three Impairment Headache Short Term Goal (STG) Alena will read with headache of 2/10 or less. STG Duration 4 weeks-- NOT MET Two Impairment Vestibular Short Term Goal (STG) Alena will be independent with a vestibular HEP. STG Duration 4 weeks-- PROGRESS MADE Stem Processing Machine Operator Goal (LTG) Alena will walk with horizontal head turns without veering or LOB. LTG Duration MET One Impairment Balance Short Term Goal (STG) Alena will show improved balance by being able to standing on foam with eyes closed for 30 seconds. STG Duration MET Stem Processing Machine Operator Goal (LTG) Alena will walk over uneven terrain (curbs, grass, gravel) without LOB and without fear of falling. LTG Duration MET Assessment Summary Assessment Alena's facial nerve issues continue to make life challenging for her (with tear production etc.). She is continuing to have a headache that is quite limiting for her , and we did instruct her in appropriate neck/shoulder exercises today to try to take some of the strain off of levator scap and upper trap. Continued to discuss posture. She is progressing with tolerance for VOR exercises, but continues to need to move her head fairly slowly to avoid blurry vision. We have decreased her frequency of treatment due to insurance/ financial concerns. Physical Therapy Plan Frequency and Duration Frequency of Treatment Every Other Week Duration of Treatment 12 weeks Plan of Care Start Date 08/05/21 Plan of Care End Date 10/28/21 Therapeutic Interventions Therapeutic Interventions Home Exercise Program,Manual Therapy,Neuromuscular Re- education,Self-Care/Home Management,Therapeutic Activities,Therapeutic Exercises,Vestibular Rehabilitation Modalities Cold Pack/Ice Massage,Electric Stimulation,Hot Packs Next Visit Focus/Plan Next Note Type Treatment Note Next Visit Plan Progress vestibular, continue to work to reduce orthopedic components of headache Plan of Care Dates Plan of Care Start Date 08/05/21 Plan of Care End Date 10/28/21 Electronically Signed by: Yvonne Villanueva, PT 08/29/21 1009 Please Sign and Return: I have reviewed this Plan of Care and certify that the skilled therapy services above are required to meet the patient?s needs. Physician Signature Date Printed Name and Credentials Clinical Instructor Signature Printed Name and Credentials
--- NOTE | 2021-09-09 09:28 | PT-OP ANOTE ---
No show- called pt and she stated that she had thought she had canceled yesterday via the automated call system.
--- NOTE | 2021-10-16 15:38 | PT.OPDS ---
Current Diagnoses Benign neoplasm of meninges, unspecified (08/19/21) Ataxic gait (08/19/21) Headache, unspecified (08/19/21) Visit Care Team Role Provider Type ROBERT Parham Family Provider Non-Staff Primary Care Provider Specialty: Family Practice Address: [address] [place], [address] Email: Manuelito Escudero MD Attending Provider Non-Staff Referring Provider Specialty: Medical Address: [address], [address] Email: Visit Number Visit Number 8 Discharge Summary PT-OP-B Current Condition Start: 06/05/21 11:02 Freq: Status: Active Protocol: Document 06/10/21 09:42 AMB (Rec: 06/10/21 10:06 AMB [id number]) Current Condition History of Current Condition Onset Date 05/27/21 Current Complaints R sided pain, dizziness s/p R meningioma resection History of Current Condition Nerve pain on R sided pain after surgery. Headaches multiple times per week pre surgery. Nerve pain started last wednesday more notable at night (lightning strikes), taking a lot of gabapentin now . Is noticing facial droop, smile is not symmetrical- is going to speech therapy for that. Is not walking alone due to feeling off/dizzy. 3 Stairs going into single level home lives with . Doesn't feel steady. Dizziness- just moving eyes causes disoritientation, moving head increases disorientation. Describes going to work at a high stress job, does use dual monitors, hasn't returned to driving. Tinnitis in R ear. Treatment Goals Patient/Caregiver Goals Reduce dizziness/pain Prior Functional Status Baseline Function- ADL's Independent Baseline Function- Mobility Independent Current Functional Impairments (Reported) Functional Limitations- ADL's Not driving, not walking alone Personal Factors Other Personal Factors That May Effect hypothyroid anemia, osteopenia Therapy/Recovery , depression PT-OP-C Subjective Start: 06/05/21 11:02 Freq: Status: Active Protocol: Document 08/19/21 09:30 AMB (Rec: 08/19/21 10:15 AMB [id number]) OP-PT Subjective Patient Comments Patient Comments Walking 15-20 minutes per day. Headaches most days. Does PT exercises 5x/week. Takes a lot of breaks throughout the day, gets tired (mental fatigue). PT-OP-O Vestibular Start: 06/05/21 11:02 Freq: Status: Active Protocol: Document 06/10/21 10:30 AMB (Rec: 06/16/21 10:02 AMB [id number]) Vestibular Assessment Visual Testing Smooth Pursuits Horizontal R eye with difficulting with adduction Saccades Horizontal slow Thrust Head Positive Right Convergence Test Impaired DVA (Line Degradation) 2 Vestibular Function Tests mCTSIB Position 1 30 seconds mCTSIB Position 2 30 seconds increased ankle sway mCTSIB Position 3 30 seconds increased ankle sway mCTSIB Position 4 10 seconds PT-OP-T Assessment and Plan Start: 06/05/21 11:02 Freq: Status: Active Protocol: Document 10/16/21 15:34 AMB (Rec: 10/16/21 15:38 AMB [id number]) Physical Therapy Assessment Goals Three Impairment Headache Short Term Goal (STG) Alena will read with headache of 2/10 or less. STG Duration 4 weeks-- NOT MET Two Impairment Vestibular Short Term Goal (STG) Alena will be independent with a vestibular HEP. STG Duration 4 weeks-- PROGRESS MADE Prison Goal (LTG) Alena will walk with horizontal head turns without veering or LOB. LTG Duration MET One Impairment Balance Short Term Goal (STG) Alena will show improved balance by being able to standing on foam with eyes closed for 30 seconds. STG Duration MET Prison Goal (LTG) Alena will walk over uneven terrain (curbs, grass, gravel) without LOB and without fear of falling. LTG Duration MET Assessment Summary Assessment Alena has not been seen in 60 days. At her last visit, she had met her balance and gait goals but continued to have headache and impaired facial nerve issues. She is now waiting for insurance, and would need a new referral to return.
== END 2021-10-22 12:42 ==
LOC: PHYS 09:30
PROVIDERS: Family Provider Nurse Practitioner Family; PCP Nurse Practitioner Family; Referring Provider Neurological Surgery; Visit Provider Neurological Surgery
DX: D32.9 Benign neoplasm of meninges, unspecified (principal); R26.0 Ataxic gait; R51.9 Headache, unspecified
CPT/HCPCS: 97110; 97112; 97162; 97535

== ENCOUNTER → 2022-01-31 15:12 | Outpatient (CLI) | payer BC, SELFPAY ==
--- NOTE | 2022-01-31 | DI.MRI.S_ITS ---
PROCEDURE: MR HEAD/BRAIN WO/W CON INDICATIONS: Benign neoplasm of meninges TECHNIQUE: Noncontrast axial T1 spin echo, axial T2 fast spin echo, sagittal and axial FLAIR, coronal T2 fast spin echo, axial gradient echo, axial diffusion and ADC through the brain. After the administration of contrast, axial and coronal and sagittal 3D VIBE or T1 spin echo with fat saturation through the brain. COMPARISON: [facility], MR, MR IAC (BRAIN) WWO CON, 07/31/2021, 10:08. FINDINGS: Image quality: Excellent. CSF Spaces: Basal cisterns are patent. No extra-axial fluid collections. Ventricles are normal in size and shape. Brain: Focal enhancement involving the right internal auditory canal is stable in size and contour compared to July 31, 2021. No midline shift. No intracranial bleeds. No abnormal intracranial enhancement. The brainstem appears normal. Diffusion-weighted images demonstrate no acute ischemic insults. No chronic ischemic insults. Normal intravascular flow voids are present. Dural sinuses demonstrate normal postcontrast enhancement. Skull and face: Postsurgical changes compatible with prior right suboccipital craniotomy. Orbits appear normal. Sinuses: Sinuses and mastoids appear clear. IMPRESSION: 1. Stable postsurgical changes. 2. Stable postcontrast enhancement involving the right internal auditory canal concerning for residual neoplasm. Recommend continued surveillance MRI with follow-up imaging in 4-6 months. Dictated by: Trish Chin MD, PhD on 02/03/2022 at 11:49 Approved by: Trish Chin MD, PhD on 02/03/2022 at 11:55
== END ==
PROVIDERS: Family Provider Nurse Practitioner Family; PCP Nurse Practitioner Family; Referring Provider Neurological Surgery; Visit Provider Neurological Surgery
DX: D32.9 Benign neoplasm of meninges, unspecified (principal)
CPT/HCPCS: 70553; A9579

== ENCOUNTER → 2022-04-09 14:18 | Outpatient (CLI) | payer BC, SELFPAY | PROVIDERS: Family Provider Nurse Practitioner Family; PCP Nurse Practitioner Family; Referring Provider Family Medicine; Visit Provider Family Medicine | DX: M85.89 Other specified disorders of bone density and structure, multiple sites (principal) | CPT/HCPCS: 77080 ==

== ENCOUNTER → 2022-08-11 13:22 | Outpatient (CLI) | payer OTHER, SELFPAY ==
--- NOTE | 2022-08-11 13:24 | DI.RAD.S_ITS ---
PROCEDURE: XR THORACIC SPINE 3V INDICATIONS: rib pain TECHNIQUE: 3 views of the thoracic spine were acquired. COMPARISON: None. FINDINGS: Bones: No fractures or dislocations. No suspicious bony lesions. 12 pairs of ribs are noted, and appear intact where visualized. Soft tissues: No paravertebral stripe thickening. IMPRESSION: No fracture. No acute osseous lesion. If symptoms and/or clinical suspicion for pathology persists, evaluation with MRI should be considered for further assessment. Dictated by: Trish Chin MD, PhD on 08/11/2022 at 14:02 Approved by: Trish Chin MD, PhD on 08/11/2022 at 14:03
--- NOTE | 2022-08-11 13:24 | DI.RAD.S_ITS ---
PROCEDURE: XR CERVICAL SPINE 4V OR 5V INDICATIONS: NECK PAIN TECHNIQUE: 5 views of the cervical spine acquired. COMPARISON: None. FINDINGS: Bones: No fractures or dislocations to the T1 level. Oblique images demonstrate no bony foraminal stenoses. Moderate C5-C6 degenerative disc disease. Mild C3-C4, C4-C5 and C6-C7 degenerative disc disease. Postsurgical changes compatible prior right suboccipital craniotomy. Soft tissues: No prevertebral soft tissue swelling. IMPRESSION: 1. Multilevel degenerative disc disease. 2. No fracture. No acute osseous lesion. If symptoms and/or clinical suspicion for pathology persists, evaluation with MRI should be considered for further assessment. Dictated by: Trish Chin MD, PhD on 08/11/2022 at 14:03 Approved by: Trish Chin MD, PhD on 08/11/2022 at 14:05
== END ==
PROVIDERS: Family Provider Nurse Practitioner Family; PCP Nurse Practitioner Family; Referring Provider Physical Medicine & Rehabilitation; Visit Provider Physical Medicine & Rehabilitation
DX: M50.31 Other cervical disc degeneration, high cervical region (principal); R07.81 Pleurodynia
CPT/HCPCS: 72050; 72072

== ENCOUNTER 2022-09-14 15:43 | Emergency (ER) | payer OTHER, SELFPAY ==
[2022-09-14] VITALS (11 sets, daily range): BP systolic 112–163; BP diastolic 66–116; PULSE 78–101; RESP 14–24; TEMP 36.1; O2SAT 93–100; BMI 26.6
[2022-09-14] MEDS: PANTOPRAZOLE 40 MG VIAL IV (16:06)
[2022-09-14] MEDS: SODIUM CHLORIDE 0.9% 1,000 ML 1000 ML IV (16:06)
[2022-09-14 16:07] LABS: Add Manual Diff / Slide Review NO; Basophils Absolute Auto 0 /uL (0-100); Basophils Percent Auto 0.2 % (0-2); Eosinophils Absolute Auto 500 /uL (0-450); Eosinophils Percent Auto 4.7 % (2-4); Hematocrit 40.7 % (36-46); Hemoglobin 13.7 g/dL (12.0-16.0); Lymphocytes Absolute Auto 2300 /uL (1100-4500); Lymphocytes Percent Auto 19.5 % (25-40); Mean Corpuscular HGB Conc 33.7 % (30-36); Mean Corpuscular Hemoglobin 30.8 PG (26-34); Mean Corpuscular Volume 91.4 fL (80-100); Monocytes Absolute Auto 600 /uL (0-900); Neutrophils Absolute Auto 8200 /uL (1500-7000); Neutrophils Percent Auto 70.6 % (50-75); Platelet Count 383 X10^3/uL (150-400); Red Blood Cell Count 4.46 X10^6/uL (4.0-5.2); Red Cell Distribution Width 12.2 % (11.6-14.8); White Blood Cell Count 11.6 X10^3/uL (4.5-11.0)
[2022-09-14 16:12] LABS: Alanine Aminotransferase 47 IU/L (<35); Albumin 5.1 g/dL (3.5-5.0); Albumin Globulin Ratio 1.5 (1.0-2.8); Alkaline Phosphatase 70 U/L (38-126); Aspartate Aminotransferase 34 IU/L (14-36); Bilirubin Total 0.6 mg/dL (0.2-1.3); Blood Urea Nitrogen 12 mg/dL (7-17); Calcium 9.4 mg/dL (8.4-10.2); Carbon Dioxide 18 mmol/L (22-32); Chloride 104 mmol/L (98-107); Estimated Glomerular Filt Rate > 60 mL/min (>60); Globulin 3.3 g/dL (1.7-4.1); Glucose 116 mg/dL (70-100); HEMOLYSIS < 15 (0-50); Lipase 106 U/L (23-300); Potassium 3.6 mmol/L (3.4-5.1); Sodium 138 mmol/L (137-145); Total Protein 8.4 g/dL (6.3-8.2)
[2022-09-14 16:13] LABS: Lactate (Lactic Acid) 1.4 mmol/L (0.7-2.1)
[2022-09-14] MEDS: HYDROMORPHONE 0.5 MG INJ IV (16:18)
--- NOTE | 2022-09-14 17:02 | DI.CT.S_ITS ---
PROCEDURE: CT ABDOMEN PELVIS W CON INDICATIONS: severe abdominal pain TECHNIQUE: After the administration of intravenous contrast, axial sections acquired from the lung bases to the pubic symphysis. Coronal and sagittal reformats were performed. For radiation dose reduction, the following was used: automated exposure control, adjustment of mA and/or kV according to patient size. COMPARISON: None. FINDINGS: Image quality: Excellent. Lung bases: Unremarkable. Heart: No significant findings. ABDOMEN: Liver: Unremarkable. Gallbladder: Unremarkable. Biliary ducts: Unremarkable. Pancreas: Unremarkable. Spleen: Unremarkable. Adrenal Glands: Unremarkable. Kidneys and Ureters: Unremarkable. Stomach and Bowel: Mid small bowel stenosis fluid distension with wall enhancement, suggesting an ileus or enteritis. No evidence of obstruction abscess. Peritoneum: No abnormal intraperitoneal fluid. No free air. Ventral Wall: No hernias. Abdominal Nodes: No retroperitoneal or mesenteric adenopathy by size criteria. Vessels: Aorta and inferior vena cava are normal in size. PELVIS: Pelvic Organs: Unremarkable. Bladder: Unremarkable. Pelvic Nodes: No enlarged lymph nodes. Miscellaneous: No hernias are seen. Bones: Unremarkable. IMPRESSION: Fluid distension of the mid small bowel with wall enhancement probably reflects an ileus or enteritis. No obstruction, abscess or free fluid. Approved by: Mc Higuera M.D. on 09/14/2022 at 17:16
--- NOTE | 2022-09-14 17:06 | ED.ABDPAIN ---
HPI - Abdominal Pain General Chief Complaint: Abdominal Pain Stated Complaint: ab pain, took herbals oils on an empty stomach Time Seen by Provider: 09/14/22 15:46 Source: patient Mode of arrival: Ambulatory History of Present Illness HPI narrative: 41-year-old nonsmoker with history of what sounds like relatively chronic episodic abdominal pain and prior right meningioma occipital resection 05/27/21 and previous trigeminal neuralgia pain presents with significant other and a chief complaint of severe generalized relatively colicky abdominal pain over the course of the day. She states that she frequently takes multiple [id number] oils and various preparations and sometimes she takes them on an empty stomach and other times remembers to take it with food. Today she states that she did not have much of an appetite so she took her medications on an empty stomach and thinks that maybe that is part of the problem. She is had 1 or 2 episodes of vomiting and at least 1 episode of diarrhea and states that perhaps she had a brief improvement in her symptoms after that but is here complaining of severe pain as stated. She denies any vaginal bleeding or discharge and has no dysuria, frequency or urgency. Related Data Home Medications Medication Instructions Recorded Confirmed Coenzyme Q10 (#COENZYME Q-10) 50 mg PO Q DAY ##0 08/19/11 08/12/22 FERROUS SULFATE (IRON-) ##0 08/19/11 08/12/22 KRILL OIL (#[facility] KRILL OIL) 1,000 mg PO Q DAY ##0 08/19/11 08/12/22 Lactobacillus Reuteri (#PROBIOTICA) ##0 08/19/11 08/12/22 MULTIVITAMIN (One Daily 1 tab PO Q DAY ##0 08/19/11 08/12/22 Multivitamin) [CLORELLA] 5 gr PO Q DAY ##0 08/19/11 08/12/22 [VITAMIN K] 150 mg PO Q DAY ##0 08/19/11 08/12/22 LYSINE/VIT B1/VIT B12/VIT B6 (JETS) 1 ctb PO Q DAY ##0 05/09/12 08/12/22 [NATURE-THROID] 81.25 Q DAY ##0 05/09/12 08/12/22 [IODINE] 25 mg PO ##0 12/09/12 08/12/22 cholecalciferol (vitamin D3) 25 8,000 iu PO Q DAY ##0 12/09/12 08/12/22 mcg (1,000 unit) tablet (Vitamin D3) acetaminophen 650 mg 650 mg PO Q12H 08/12/22 08/12/22 tablet,extended release (Tylenol Arthritis Pain) amantadine HCl 100 mg capsule 100 mg PO DAILY 08/12/22 08/12/22 cyclobenzaprine 5 mg tablet 5 mg PO .PRN 08/12/22 08/12/22 gabapentin 300 mg capsule 900 mg PO BID 08/12/22 08/12/22 ibuprofen 200 mg capsule 200 mg PO Q6H PRN 08/12/22 08/12/22 methocarbamol 500 mg tablet 500 mg PO QID PRN 08/12/22 08/12/22 oxcarbazepine 150 mg tablet 150 mg PO DAILY 08/12/22 08/12/22 pregabalin 75 mg capsule 75 mg PO QAM 08/12/22 08/12/22 thyroid (pork) 15 mg tablet (GAMMA RAY OPERATOR 15 mg PO DAILY 08/12/22 08/12/22 Thyroid) thyroid (pork) 60 mg tablet (GAMMA RAY OPERATOR 60 mg PO DAILY 08/12/22 08/12/22 Thyroid) Previous Rx's Medication Instructions Recorded hydrocodone 5 mg-acetaminophen 325 1 tab PO Q4-6H PRN pain #10 tabs 09/14/22 mg tablet hyoscyamine sulfate 0.125 mg tablet 0.125 mg PO BID-QID PRN dyspepsia 09/14/22 #20 tabs ondansetron 4 mg disintegrating 4 mg PO TID-QID PRN nausea and 09/14/22 tablet vomiting #10 tabs pantoprazole 40 mg tablet,delayed 40 mg PO DAILY #30 tabs 09/14/22 release (Protonix) Allergies Allergy/AdvReac Type Severity Reaction Status Date / Time egg Allergy Mild Fatigued Verified 09/14/22 16:13 garlic Allergy Mild Fatigued Verified 09/14/22 15:55 lactase [From Dairy Aid] Allergy Mild Fatigued Verified 09/14/22 15:55 amoxicillin [AMOXICILLIN] Allergy Unknown Verified 09/14/22 15:55 Penicillins [PENICILLINS] Allergy Unknown RASH Verified 09/14/22 15:55 Review of Systems Review of Systems Narrative: GENERAL: Denies chills, fatigue, malaise, fever, sweats. HEENT: Denies sinus pain, ear pain, sore throat, difficulty swallowing, dizziness. RESPIRATORY: Denies dyspnea, cough, wheezing, hemoptysis, sputum. CARDIOVASCULAR: Denies chest pain, palpitations, orthopnea, edema, GASTROINTESTINAL: See HPI : Denies dysuria, frequency, incontinence, hematuria, urinary retention. MUSCULOSKELETAL: denies weakness, joint pain, or bony pain SKIN: Denies rash, skin lesions, or other NEUROLOGIC: Denies weakness, headache, numbness, change in speech, confusion, seizures, incoordination. PSYCHIATRIC: No concerning psychosocial issues. 12 point review of systems is negative except for those stated above Patient History Medical History History of meningioma Occipital neuralgia Trigeminal neuralgia of right side of face Surgical History H/O brain surgery History of mandibular surgery History of third molar tooth extraction Social History Smoking Status: Never smoker Smoking Status: Never smoker Substance Use Type: does not use Exam Narrative Exam Narrative: GENERAL: [41] year old patient appears stated age. Well-developed patient, in moderate distress. Patient is writhing back and forth on the bed complaining of pain HEAD: Atraumatic. Normocephalic. EYES: Pupils equal round and reactive. Extraocular motions intact. No scleral icterus. No injection or drainage. ENT: Nose without bleeding, purulent drainage. Throat without erythema, tonsillar hypertrophy or exudate. Airway patent. NECK: Trachea midline. Non tender CARDIOVASCULAR: Regular rate and rhythm without murmurs, gallops, or rubs. RESPIRATORY: Clear to auscultation. Breath sounds equal bilaterally. No wheezes, rales, or rhonchi. GASTROINTESTINAL: Abdomen soft, non-tender, nondistended. Bowel sounds present EXTREMITIES: No edema or joint tenderness. BACK: Nontender without deformity or crepitance. No flank tenderness. NEURO: AOx3. SKIN: No rash or erythema of visible areas Initial Vital Signs Initial Vital Signs: Vital Signs Pulse Rate 78 09/14/22 15:47 Pulse Oximetry 97 09/14/22 15:47 Course Orders Ordered: ED Orders 09/14/22 15:50 Complete Blood Count AUTO DIFF Stat Comprehensive Metabolic Panel Stat Lactate (Lactic Acid) Stat Lipase Stat Magnesium Stat 09/14/22 17:02 CT abdomen pelvis w con Stat Discontinued Medications Hydromorphone HCl (Hydromorphone 0.5 Mg Inj) 0.5 mg IV NOW ONE Stop: 09/14/22 16:14 Last Admin: 09/14/22 16:18 Dose: 0.5 mg Documented By: WILLIE Hydromorphone HCl (Hydromorphone 1 Mg Inj) 1 mg IV NOW ONE Stop: 09/14/22 17:15 Last Admin: 09/14/22 17:17 Dose: 1 mg Documented By: WILLIE Sodium Chloride (Normal Saline 0.9%) 1,000 mls @ 1,000 mls/hr IV BOLUS ONE Stop: 09/14/22 16:57 Last Infusion: 09/14/22 16:57 Dose: 0 mls/hr Documented By: Admin: 09/14/22 16:06 Dose: 1,000 mls/hr Documented By: WILLIE Pantoprazole Sodium (Pantoprazole 40 Mg Vial) 40 mg IV NOW ONE Stop: 09/14/22 15:59 Last Admin: 09/14/22 16:06 Dose: 40 mg Documented By: WILLIE Reevaluation(s) Reevaluation #1: Minimal if any improvement after Dilaudid Vital Signs Vital signs: Vital Signs - 8 hr 09/14/22 15:55 09/14/22 15:47 09/14/22 15:48 Temperature 97.0 F L Pulse Rate 83 78 Respiratory Rate 24 Blood Pressure 144/95 H 144/95 H Pulse Oximetry 98 97 Oxygen Delivery Method Room Air 09/14/22 15:48 09/14/22 16:00 09/14/22 16:30 Temperature Pulse Rate 84 80 89 Respiratory Rate Blood Pressure Pulse Oximetry 98 99 99 Oxygen Delivery Method 09/14/22 17:00 09/14/22 17:02 09/14/22 17:02 Temperature Pulse Rate 81 101 H Respiratory Rate Blood Pressure 163/116 H Pulse Oximetry 100 100 Oxygen Delivery Method MDM - Abdominal Pain Lab Data 09/14/22 15:50 09/14/22 15:50 Labs: Lab Results 09/14/22 09/14/22 09/14/22 Range/Units 15:50 15:50 15:50 WBC 11.6 H (4.5-11.0) X10^3/uL RBC 4.46 (4.0-5.2) X10^6/uL Hgb 13.7 (12.0-16.0) g/dL Hct 40.7 (36-46) % MCV 91.4 (80-100) fL MCH 30.8 (26-34) PG MCHC 33.7 (30-36) % RDW 12.2 (11.6-14.8) % Plt Count 383 (150-400) X10^3/uL Neut % (Auto) 70.6 (50-75) % Lymph % (Auto) 19.5 L (25-40) % [place] % (Auto) 5.0 (3-14) % Eos % (Auto) 4.7 H (2-4) % Baso % (Auto) 0.2 (0-2) % Neut # (Auto) 8200 H (1316-8726) /uL Lymph # (Auto) 2300 (8807-4556) /uL [place] # (Auto) 600 (0-900) /uL Eos # (Auto) 500 H (0-450) /uL Baso # (Auto) 0 (0-100) /uL Sodium 138 (137-145) mmol/L Potassium 3.6 (3.4-5.1) mmol/L Chloride 104 (98-107) mmol/L Carbon Dioxide 18 L (22-32) mmol/L BUN 12 (7-17) mg/dL Creatinine 0.63 (0.52-1.04) mg/dL Estimated GFR > 60 (>60) mL/min BUN/Creatinine Ratio 19.0 (6-22) Glucose 116 H (70-100) mg/dL Lactate 1.4 (0.7-2.1) mmol/L Calcium 9.4 (8.4-10.2) mg/dL Magnesium 2.0 (1.6-2.3) mg/dL Total Bilirubin 0.6 (0.2-1.3) mg/dL AST 34 (14-36) IU/L ALT 47 H (<35) IU/L Alkaline Phosphatase 70 (38-126) U/L Total Protein 8.4 H (6.3-8.2) g/dL Albumin 5.1 H (3.5-5.0) g/dL Globulin 3.3 (1.7-4.1) g/dL Albumin/Globulin Ratio 1.5 (1.0-2.8) Lipase 106 (23-300) U/L Point of care testing: Point of Care Testing Test Results Negative Urine Dip Bedside Urine Glucose Negative Bedside Urine Bilirubin - Negative Bedside Urine Ketone +/- 5 Urine Specific [place] 1.020 Bedside Urine Occult Blood - Negative Bedside Urine pH 6.0 Bedside Urine Protein - Negative Bedside Urine Urobilinogen - Negative Bedside Urine Nitrite - Negative Bedside Urine Leukocytes - Negative Esterase MDM Narrative Medical decision making narrative: CC: 41-year-old female with generalized abdominal pain, colicky in nature after taking herbal oils Complicating co-morbidities: Prior brain surgery, significant prior opioid exposure Data collected from: Patient Medical records reviewed: Prior ED visits noted, Differential considered, but not limited to: Bowel obstruction, colitis, versus other Exam documented above, pertinent findings include: Obviously uncomfortable, writhing in pain, abdomen soft with bowel sounds present. Lab Test results independently reviewed as above. Pertinent findings: Slight leukocytosis without significant left shift,, no significant electrolyte abnormalities, kidney function or LFTs Independently reviewed EKG as above Imaging studies independently reviewed: CT without evidence of obstruction or surgical finding, some distention of small bowel and fluid consistent with enteritis possible mild ileus Treatments: Hydromorphone, Protonix, fluids Re-evaluations: Significant improvement Discussion: 41-year-old female with generalized, colicky abdominal pain along with nausea, vomiting and diarrhea. Symptoms seemed to exacerbate after oral consumption of herbal oils. Symptoms significantly improved after above-stated therapies. Labs show no significant abnormalities, imaging demonstrates no surgical diagnosis or bowel obstruction. Pain is well controlled, patient tolerating orals, given extensive return precautions, prescription sent to her pharmacy of choice Disposition: see below, along with detailed discharge instructions that have been reviewed with patient as well as indications for ED re-evaluation and additional outpatient follow up Discharge Plan Departure Patient Disposition: Home Clinical Impression: Abdominal pain, Enteritis Instructions: DI for Abdominal Pain-Adult Activity Restrictions/Additional Instructions: *You have been diagnosed with [abdominal pain] due to enteritis * As we discussed your history and physical exam as well as labs and imaging are very reassuring. There is no evidence of any severe diagnoses that would require a specific or immediate intervention. *What to do: *Please continue to take your regular medications as directed. [x ] New medication prescriptions sent to your pharmacy: [ [facility]] *Please follow up with your primary care provider in 2-3 days, call for an appointment. Let them know you were seen in the Emergency Department and that we ask that you be seen in follow up. We will electronically transmit a record of today's note if your PCP is in our system *Please consider a clear liquid diet for the next 24-48 hours and then slowly advance to regular as tolerated. Also, try to avoid alcohol, nicotine, caffeine, spicy, acidic or fatty foods as this may worsen your symptoms *If you do not have a primary care provider please contact the [facility] Resource line at [phone]. They will ask some questions about your medical history and help get you set up with a doctor in the community. *Return to Emergency Department if you should have any new, worsening or concerning symptoms, such as [fever greater than 101 F, shaking chills, worsening pain, persistent vomiting or other bothersome symptoms] You have been prescribed a short course of narcotic medications. These are potentially dangerous and addictive medications that should be used carefully. While on these medications you cannot drive or operate heavy machinery. Additionally, you cannot sign legal documents or perform any duties such as this. Many people get constipated on narcotic medications so it would be advisable to discuss stool softeners with the pharmacist when you pick and shovel man your prescription. Please understand that we cannot provide further refills of narcotics or controlled substances through the ED and your pain management will need to be through your Primary Care Provider Prescriptions: New hydrocodone-acetaminophen 5-325 mg tablet 1 tab PO Q4-6H PRN (Reason: pain) Qty: 10 0RF pantoprazole [Protonix] 40 mg tablet,delayed release (DR/EC) 40 mg PO DAILY Qty: 30 0RF hyoscyamine sulfate 0.125 mg tablet 0.125 mg PO BID-QID PRN (Reason: dyspepsia) Qty: 20 0RF ondansetron 4 mg tablet,disintegrating 4 mg PO TID-QID PRN (Reason: nausea and vomiting) Qty: 10 0RF No Action MULTIVITAMIN (One Daily Multivitamin) 1 tab PO Q DAY Qty: 0 FERROUS SULFATE (IRON-) Qty: 0 KRILL OIL (#[facility] KRILL OIL) 1,000 mg PO Q DAY Qty: 0 Lactobacillus Reuteri (#PROBIOTICA) Qty: 0 [VITAMIN K] 150 mg PO Q DAY Qty: 0 [CLORELLA] 5 gr PO Q DAY Qty: 0 Coenzyme Q10 (#COENZYME Q-10) 50 mg PO Q DAY Qty: 0 LYSINE/VIT B1/VIT B12/VIT B6 (JETS) 1 ctb PO Q DAY Qty: 0 [NATURE-THROID] 81.25 Q DAY Qty: 0 cholecalciferol (vitamin D3) [Vitamin D3] 1,000 UNIT tablet 8,000 iu PO Q DAY Qty: 0 [IODINE] 25 mg PO Qty: 0 cyclobenzaprine 5 mg tablet 5 mg PO .PRN oxcarbazepine 150 mg tablet 150 mg PO DAILY amantadine HCl 100 mg capsule 100 mg PO DAILY gabapentin 300 mg capsule 900 mg PO BID Label Comments: TAKE 3 CAPSULES BY MOUTH TWICE DAILY thyroid (pork) [GAMMA RAY OPERATOR Thyroid] 15 mg tablet 15 mg PO DAILY thyroid (pork) [GAMMA RAY OPERATOR Thyroid] 60 mg tablet 60 mg PO DAILY methocarbamol 500 mg tablet 500 mg PO QID PRN Label Comments: TAKE 1 TABLET BY MOUTH FOUR TIMES DAILY NEEDED FOR MYALGIA acetaminophen [Tylenol Arthritis Pain] 650 mg tablet extended release 650 mg PO Q12H ibuprofen 200 mg capsule 200 mg PO Q6H PRN pregabalin 75 mg capsule 75 mg PO QAM Referrals: Courtney Angel ARNP [Primary Care Provider] - Stand Alone Forms: Patient Portal/API
[2022-09-14] MEDS: HYDROMORPHONE 1 MG INJ IV (17:17)
== END 2022-09-14 18:50 | disposition home or self-care (01) ==
PROVIDERS: Emergency Provider Emergency Medicine; Family Provider Nurse Practitioner Family; PCP Nurse Practitioner Family
DX: K52.9 Noninfective gastroenteritis and colitis, unspecified (principal); R10.9 Unspecified abdominal pain
CPT/HCPCS: 36415; 74177; 80053; 81003; 81025; 83605; 83690; 83735; 85025; 96361; 96374; 96375; 96376; 99284; C9113; J1170; Q9967

== ENCOUNTER → 2023-06-01 11:17 | Outpatient (CLI) | payer OTHER, SELFPAY ==
--- NOTE | 2023-06-01 11:22 | DI.MRI.S_ITS ---
PROCEDURE: MR HEAD/BRAIN WO/W CON INDICATIONS: Benign neoplasm of meninges, unspecified TECHNIQUE: Noncontrast axial T1 spin echo, axial T2 fast spin echo, sagittal and axial FLAIR, coronal T2 fast spin echo, axial gradient echo, axial diffusion and ADC through the brain. After the administration of contrast, axial and coronal and sagittal 3D VIBE or T1 spin echo with fat saturation through the brain. COMPARISON: [facility], MR, MR IAC (BRAIN) WWO CON, 07/31/2021, 10:08. [facility], MR, MR HEAD/BRAIN WO/W CON, 01/31/2022, 15:26. FINDINGS: Image quality: Excellent. CSF Spaces: Basal cisterns are patent. No extra-axial fluid collections. Ventricles are normal in size and shape. Brain: There is moderate enhancement seen involving the right internal auditory canal, which is unchanged compared to the prior examination. No new areas of abnormal enhancement or masses can be seen. No midline shift. No intracranial bleeds. The brainstem appears normal. Diffusion-weighted images demonstrate no acute ischemic insults. No chronic ischemic insults. Normal intravascular flow voids are present. Skull and face: Right-sided craniotomy change is seen. Calvarial marrow is normal in signal. Orbits appear normal. Sinuses: Sinuses and mastoids appear clear. IMPRESSION: Stable enhancement seen involving the right internal auditory canal, which is attributed to residual neoplasm. Please consider a follow-up brain MRI in 1-2 years to monitor for stability. Dictated by: Keshav Madrid M.D. on 06/01/2023 at 11:30 Approved by: Keshav Madrid M.D. on 06/01/2023 at 11:34
== END ==
PROVIDERS: Family Provider Nurse Practitioner Family; PCP Nurse Practitioner Family; Referring Provider Psychiatry & Neurology Neurology; Visit Provider Psychiatry & Neurology Neurology
DX: D32.9 Benign neoplasm of meninges, unspecified (principal)
CPT/HCPCS: 70553

== ENCOUNTER → 2023-09-10 12:19 | Outpatient (CLI) | payer OTHER, SELFPAY ==
--- NOTE | 2023-09-10 | DI.US.S_ITS ---
LIMITED ULTRASOUND OF LEFT BREAST: 09/10/2023 CLINICAL: Patient returns for magnification views of microcalcifications in the left breast. Comparison is made to exams dated: 09/10/2023 ultrasound and 09/10/2023 mammogram - [facility]. Color flow and real-time ultrasound of the left breast retroareolar were performed. Roberts scale images of the real-time examination were reviewed. No significant abnormalities were seen sonographically in the left breast. IMPRESSION: PROBABLY BENIGN There is no abnormality seen in the left breast to correspond with the mammography finding which likely represents normal fibroglandular tissue. A follow-up mammogram in 6 months is recommended to demonstrate stability of the questionable retroareolar grouped calcifications. This exam was interpreted at Station ID: [id number]. Electronically Signed By: Bo Devi M.D. lc/:09/10/2023 14:28:54 letter sent: Followup Recommended Ultrasound BI-RADS: 3 Probably benign
--- NOTE | 2023-09-10 12:20 | DI.MG.S_ITS ---
BILATERAL DIGITAL DIAGNOSTIC MAMMOGRAM 3D/2D: 09/10/2023 CLINICAL: Palpable left breast lump. Baseline exam. No prior exams were available for comparison. Both breasts are heterogeneously dense, which may obscure small masses (category c / 51-75% glandular tissue). There is a focal asymmetry in the left breast central to the nipple in the retroareolar region. There also are grouped calcifications in the left breast central to the nipple anterior depth. No other significant masses, calcifications, or other findings are seen in either breast. IMPRESSION: INCOMPLETE: NEEDS ADDITIONAL IMAGING EVALUATION The focal asymmetry in the left breast central to the nipple in the retroareolar region is indeterminate. An ultrasound is recommended. The grouped calcifications in the left breast central to the nipple anterior depth are probably benign. There is no abnormality seen in the right breast to correspond with the area of clinical concern, however, ultrasound is recommended. Based on the Tyrer Cuzick model (a risk assessment model) the patient's lifetime risk is 13.2% and her 10 year risk is 2.3%. According to the ACR, ACS, and NCCN guidelines, an annual breast MRI exam along with mammogram is recommended if the patient's lifetime risk is 20% or greater. This exam was interpreted at Station ID: [id number]. NOTE: For mammograms, a report in lay terms will be sent to the patient. Approximately 15% of breast malignancies will not be visualized mammographically. In the management of a palpable breast mass, a negative mammogram must not discourage biopsy of a clinically suspicious lesion. Electronically Signed By: Bo Devi M.D. lc/:09/10/2023 14:25:59 ACR BI-RADS Category 0: Incomplete [id number]
--- NOTE | 2023-09-10 12:20 | DI.US.S_ITS ---
PROCEDURE: US BREAST RT LIMITED COMPARISON: None. INDICATIONS: lump in the right breast, lower outer quadrant FINDINGS: IMPRESSION: Dictated by: Bo Devi M.D. on 09/10/2023 at 14:26 Approved by: Bo Devi M.D. on 09/10/2023 at 14:27
--- NOTE | 2023-09-10 13:50 | DI.US.S_ITS ---
Patient Name: TARA DAVIS date: 1980 Sex: F Attending Physician: Christopher Indications: Date: 09/10/2023 14:27 At the request of: GILA GRAY Procedure: US breast RT limited LIMITED ULTRASOUND OF RIGHT BREAST: 09/10/2023 CLINICAL: Palpable right breast lump by patient. Comparison is made to exam dated: 09/10/2023 mammogram - . Color flow and real-time ultrasound of the right breast 6 o'clock region were performed. Roberts scale images of the real-time examination were reviewed. No significant abnormalities were seen sonographically in the right breast. IMPRESSION: NEGATIVE There is no sonographic evidence of malignancy. There is no abnormality seen in the right breast to correspond with the area of clinical concern at 6 o'clock, however, clinical correlation and clinical followup are recommended. This exam was interpreted at Station ID: [id number]. Electronically Signed By: Bo Devi M.D. lc/:09/10/2023 14:27:42 letter sent: Clinical Evaluation Ultrasound BI-RADS: 1 Negative
== END ==
LOC: MAMMO 12:19
PROVIDERS: Family Provider Nurse Practitioner Family; PCP Nurse Practitioner Family; Referring Provider Registered Nurse; Visit Provider Registered Nurse
DX: R92.8 Other abnormal and inconclusive findings on diagnostic imaging of breast (principal); R92.1 Mammographic calcification found on diagnostic imaging of breast; N63.13 Unspecified lump in the right breast, lower outer quadrant; R92.333 Mammographic heterogeneous density, bilateral breasts
CPT/HCPCS: 76642; 77066; G0279

== ENCOUNTER → 2023-11-15 14:15 | Outpatient (CLI) | payer OTHER, SELFPAY ==
[2023-11-17 16:18] LABS: Candida species Negative (Negative); Gardnerella vaginalis Negative (Negative); Trichomoas vaginalis Negative (Negative)
== END ==
PROVIDERS: Family Provider Nurse Practitioner Family; PCP Nurse Practitioner Family; Visit Provider Physician Assistant Medical
DX: N89.8 Other specified noninflammatory disorders of vagina (principal)
CPT/HCPCS: 87480; 87510; 87660

== ENCOUNTER 2024-07-15 03:41 | Emergency (ER) | payer MEDICARE, OTHER, SELFPAY ==
[2024-07-15] VITALS (39 sets, daily range): BP systolic 111–144; BP diastolic 58–80; PULSE 67–101; RESP 12–29; TEMP 36.7–37; O2SAT 98–100; BMI 22.7
--- NOTE | 2024-07-15 03:45 | DI.RAD.S_ITS ---
PROCEDURE: XR CHEST 1V INDICATIONS: chest pain TECHNIQUE: One view of the chest was acquired. COMPARISON: None. FINDINGS: Surgical changes and devices: None. Lungs and pleura: Lungs are clear. No pleural effusions or pneumothorax. Mediastinum: Mediastinal contours appear normal. Heart size is normal. Bones and chest wall: No suspicious bony lesions. Overlying soft tissues appear unremarkable. IMPRESSION: No acute cardiopulmonary abnormality is seen. Dictated by: Lydia Singh M.D. on 07/15/2024 at 8:11 Approved by: Lydia Singh M.D. on 07/15/2024 at 8:11
--- NOTE | 2024-07-15 03:48 | ED.GENADULT ---
HPI - General Adult <Julián Sloan MD - Last Filed: 07/15/24 10:52> General Chief complaint: Vaginal Bleeding Stated complaint: weakness, rapid heart rate, heavy period Time Seen by Provider: 07/15/24 03:45 History of Present Illness HPI narrative: 43-year-old female with history of right sided deafness and chronic vestibulitis after brainstem meningioma surgery 2020, feels that meclizine does not help her dizziness symptoms, had right-sided postoperative facial numbness and weakness, that has largely resolved, however can not make tears right eye since the procedure. Complains of ongoing vaginal bleeding intermittent since June, no fevers or chills, no gynecological instrumentation. She feels that her dizziness feels worse after recent vaginal bleeding episodes. Related Data Home Medications Medication Instructions Recorded Confirmed Coenzyme Q10 (#COENZYME Q-10) 50 mg PO Q DAY ##0 08/19/11 11/15/23 KRILL OIL (#[facility] KRILL OIL) 1,000 mg PO Q DAY ##0 08/19/11 07/15/24 Lactobacillus Reuteri (#PROBIOTICA) ##0 08/19/11 11/15/23 MULTIVITAMIN (One Daily 1 tab PO Q DAY ##0 08/19/11 07/15/24 Multivitamin) [VITAMIN K] 150 mg PO Q DAY ##0 08/19/11 11/15/23 LYSINE/VIT B1/VIT B12/VIT B6 (JETS) 1 ctb PO Q DAY ##0 05/09/12 07/15/24 [IODINE] 25 mg PO ##0 12/09/12 11/15/23 cholecalciferol (vitamin D3) 25 8,000 iu PO Q DAY ##0 12/09/12 11/15/23 mcg (1,000 unit) tablet (Vitamin D3) acetaminophen 650 mg 650 mg PO Q12H 08/12/22 11/15/23 tablet,extended release (Tylenol Arthritis Pain) gabapentin 300 mg capsule 900 mg PO BID 08/12/22 11/15/23 ibuprofen 200 mg capsule 200 mg PO Q6H PRN 08/12/22 11/15/23 pregabalin 75 mg capsule 75 mg PO QAM 08/12/22 07/15/24 baclofen 10 mg tablet 10 - 20 mg PO 3XD PRN Muscle Spasm 07/15/24 07/15/24 thyroid (pork) 90 mg tablet (FORMING [employer] 90 mg PO DAILY 07/15/24 07/15/24 Thyroid) Previous Rx's Medication Instructions Recorded [CMP estradiol 0.0125%] 1 g vaginal 2XW #30 grams 11/17/23 valacyclovir 500 mg tablet 500 mg PO BID #180 tabs 04/04/24 (Valtrex) medroxyprogesterone 10 mg tablet 10 mg PO BID 10 days #20 tabs 07/15/24 tranexamic acid 650 mg tablet 1,300 mg (2 x 650 mg) PO Q8H 5 07/15/24 days #30 tabs Allergies Allergy/AdvReac Type Severity Reaction Status Date / Time egg Allergy Mild Fatigued Verified 11/15/23 13:13 garlic Allergy Mild Fatigued Verified 11/15/23 13:13 lactase [From Dairy Aid] Allergy Mild Fatigued Verified 11/15/23 13:13 amoxicillin [AMOXICILLIN] Allergy Unknown Verified 11/15/23 13:13 Penicillins [PENICILLINS] Allergy Unknown RASH Verified 11/15/23 13:13 Patient History <Julián Sloan MD - Last Filed: 07/15/24 10:52> Medical History (Updated 07/15/24 @ 15:13 by Candice Neil DO) Vestibular disorder Rosacea (~2019) Plantar warts (~1991) Osteoarthritis (~2021) Allergies (~2013) Depression (~2021) Anxiety (~2020) Headache (~2020) ADHD (~2020) Upper back pain (~2020) Neck pain (~2020) Scoliosis (~2009) Osteopenia (~2009) Chicken pox (~1983) Anemia (~2022) Vertigo (~2020) Tinnitus Hearing loss Ovarian cyst (~2008) Irregular menstrual cycle (~2019) Hypothyroidism Genital HSV (~2001) Dysmenorrhea Menorrhagia (~2021) Trigeminal neuralgia of right side of face (~2020) Occipital neuralgia (~2020) History of meningioma Surgical History (Updated 12/30/23 @ 18:45 by Denisse Cole) Anesthesia History of appendectomy (~01/01/21) History of mandibular surgery (~03/2016) H/O brain surgery (~05/27/21) History of third molar tooth extraction Family History (Updated 12/30/23 @ 18:49 by Denisse Cole) Father Prediabetes Janet's disease Psoriasis Mother Prediabetes Hypothyroidism Cataracts, bilateral Sister Hypothyroidism Raynaud's syndrome Grandfather History of heart disease Grandmother Diabetes mellitus Grandfather Cancer Grandmother Cancer Social History Smoking Status: Former smoker Smoking Status: Never smoker Exam <Julián Sloan MD - Last Filed: 07/15/24 10:52> Narrative Exam Narrative: GENERAL: Well-developed patient, in mild distress. HEAD: Atraumatic. Normocephalic. EYES: Pupils equal round and reactive. Extraocular motions intact. No scleral icterus. No injection or drainage. ENT: Nose without bleeding, purulent drainage. Throat without erythema, tonsillar hypertrophy or exudate. Airway patent. NECK: Trachea midline. Non tender CARDIOVASCULAR: Regular rate and rhythm without murmurs, gallops, or rubs. RESPIRATORY: Clear to auscultation. Breath sounds equal bilaterally. No wheezes, rales, or rhonchi. GASTROINTESTINAL: Abdomen soft, non-tender, nondistended. EXTREMITIES: No edema or joint tenderness. BACK: Nontender without deformity or crepitance. No flank tenderness. NEURO: AOx3. Motor functions grossly nonfocal SKIN: No rash or erythema of visible areas Initial Vital Signs Initial Vital Signs: Vital Signs Temperature 98.6 F 07/15/24 03:53 Pulse Rate 87 07/15/24 03:53 Respiratory Rate 16 07/15/24 03:53 Blood Pressure 118/73 07/15/24 03:53 Pulse Oximetry 99 07/15/24 03:53 Oxygen Delivery Method Room Air 07/15/24 03:53 <Candice Neil DO - Last Filed: 07/15/24 18:14> Initial Vital Signs Initial Vital Signs: Vital Signs Temperature 98.6 F 07/15/24 03:53 Pulse Rate 87 07/15/24 03:53 Respiratory Rate 16 07/15/24 03:53 Blood Pressure 118/73 07/15/24 03:53 Pulse Oximetry 99 07/15/24 03:53 Oxygen Delivery Method Room Air 07/15/24 03:53 Course <Julián Sloan MD - Last Filed: 07/15/24 10:52> Orders Ordered: ED Orders 07/15/24 13:37 Hemoglobin and Hematocrit Stat Discontinued Medications Acetaminophen (Acetaminophen 325 Mg Tablet) 975 mg PO NOW ONE Stop: 07/15/24 09:49 Last Admin: 07/15/24 09:52 Dose: 975 mg Documented By: LALIT Sodium Chloride (Normal Saline 0.9%) 1,000 mls @ 1,000 mls/hr IV BOLUS ONE Stop: 07/15/24 05:32 Last Infusion: 07/15/24 07:13 Dose: Infused Documented By: Infusion: 07/15/24 04:51 Dose: 0 mls/hr Documented By: Admin: 07/15/24 04:34 Dose: 1,000 mls/hr Documented By: YUSRA Tranexamic Acid 1,000 mg/ (Sodium Chloride) 100 mls @ 200 mls/hr IV NOW ONE Stop: 07/15/24 08:56 Last Infusion: 07/15/24 09:50 Dose: Infused Documented By: Admin: 07/15/24 09:05 Dose: 200 mls/hr Documented By: LALIT Medroxyprogesterone Acetate (Medroxyprogesterone Acetate 10 Mg Tablet) 10 mg PO NOW ONE Stop: 07/15/24 08:28 Last Admin: 07/15/24 09:05 Dose: 10 mg Documented By: LALIT Vital Signs Vital signs: Vital Signs - 8 hr 07/15/24 10:14 07/15/24 10:30 07/15/24 10:30 Temperature 98.0 F 98.3 F Pulse Rate 78 76 Respiratory Rate 14 12 Blood Pressure 125/78 117/80 124/74 Pulse Oximetry Oxygen Delivery Method 07/15/24 10:30 07/15/24 10:36 07/15/24 10:36 Temperature Pulse Rate 77 78 Respiratory Rate 12 26 H Blood Pressure 117/78 Pulse Oximetry 100 100 Oxygen Delivery Method 07/15/24 11:00 07/15/24 11:00 07/15/24 11:30 Temperature Pulse Rate 74 Respiratory Rate 12 Blood Pressure 115/58 L 119/59 L Pulse Oximetry 99 Oxygen Delivery Method 07/15/24 11:30 07/15/24 12:00 07/15/24 12:00 Temperature Pulse Rate 83 67 Respiratory Rate 14 13 Blood Pressure 120/65 Pulse Oximetry 99 100 Oxygen Delivery Method Room Air 07/15/24 12:30 07/15/24 12:30 07/15/24 13:00 Temperature Pulse Rate 73 72 Respiratory Rate 16 17 Blood Pressure 112/76 Pulse Oximetry 98 98 Oxygen Delivery Method 07/15/24 13:00 07/15/24 13:30 07/15/24 13:30 Temperature Pulse Rate 75 Respiratory Rate 23 Blood Pressure 111/64 117/77 Pulse Oximetry 99 Oxygen Delivery Method 07/15/24 13:38 07/15/24 14:00 07/15/24 14:00 Temperature 98.3 F Pulse Rate 72 71 Respiratory Rate 12 29 H Blood Pressure 117/77 123/75 Pulse Oximetry 99 Oxygen Delivery Method 07/15/24 14:33 07/15/24 14:34 07/15/24 14:34 Temperature Pulse Rate 77 75 Respiratory Rate 12 Blood Pressure 115/72 Pulse Oximetry 99 99 Oxygen Delivery Method Room Air 07/15/24 15:00 07/15/24 15:00 07/15/24 15:10 Temperature Pulse Rate 77 86 Respiratory Rate 23 18 Blood Pressure 118/73 Pulse Oximetry 99 98 Oxygen Delivery Method Room Air <Candice Neil, - Last Filed: 07/15/24 18:14> Orders Ordered: ED Orders 07/15/24 13:37 Hemoglobin and Hematocrit Stat Discontinued Medications Acetaminophen (Acetaminophen 325 Mg Tablet) 975 mg PO NOW ONE Stop: 07/15/24 09:49 Last Admin: 07/15/24 09:52 Dose: 975 mg Documented By: LALIT Sodium Chloride (Normal Saline 0.9%) 1,000 mls @ 1,000 mls/hr IV BOLUS ONE Stop: 07/15/24 05:32 Last Infusion: 07/15/24 07:13 Dose: Infused Documented By: Infusion: 07/15/24 04:51 Dose: 0 mls/hr Documented By: Admin: 07/15/24 04:34 Dose: 1,000 mls/hr Documented By: YUSRA Tranexamic Acid 1,000 mg/ (Sodium Chloride) 100 mls @ 200 mls/hr IV NOW ONE Stop: 07/15/24 08:56 Last Infusion: 07/15/24 09:50 Dose: Infused Documented By: Admin: 07/15/24 09:05 Dose: 200 mls/hr Documented By: LALIT Medroxyprogesterone Acetate (Medroxyprogesterone Acetate 10 Mg Tablet) 10 mg PO NOW ONE Stop: 07/15/24 08:28 Last Admin: 07/15/24 09:05 Dose: 10 mg Documented By: LALIT Vital Signs Vital signs: Vital Signs - 8 hr 07/15/24 10:14 07/15/24 10:30 07/15/24 10:30 Temperature 98.0 F 98.3 F Pulse Rate 78 76 Respiratory Rate 14 12 Blood Pressure 125/78 117/80 124/74 Pulse Oximetry Oxygen Delivery Method 07/15/24 10:30 07/15/24 10:36 07/15/24 10:36 Temperature Pulse Rate 77 78 Respiratory Rate 12 26 H Blood Pressure 117/78 Pulse Oximetry 100 100 Oxygen Delivery Method 07/15/24 11:00 07/15/24 11:00 07/15/24 11:30 Temperature Pulse Rate 74 Respiratory Rate 12 Blood Pressure 115/58 L 119/59 L Pulse Oximetry 99 Oxygen Delivery Method 07/15/24 11:30 07/15/24 12:00 07/15/24 12:00 Temperature Pulse Rate 83 67 Respiratory Rate 14 13 Blood Pressure 120/65 Pulse Oximetry 99 100 Oxygen Delivery Method Room Air 07/15/24 12:30 07/15/24 12:30 07/15/24 13:00 Temperature Pulse Rate 73 72 Respiratory Rate 16 17 Blood Pressure 112/76 Pulse Oximetry 98 98 Oxygen Delivery Method 07/15/24 13:00 07/15/24 13:30 07/15/24 13:30 Temperature Pulse Rate 75 Respiratory Rate 23 Blood Pressure 111/64 117/77 Pulse Oximetry 99 Oxygen Delivery Method 07/15/24 13:38 07/15/24 14:00 07/15/24 14:00 Temperature 98.3 F Pulse Rate 72 71 Respiratory Rate 12 29 H Blood Pressure 117/77 123/75 Pulse Oximetry 99 Oxygen Delivery Method 07/15/24 14:33 07/15/24 14:34 07/15/24 14:34 Temperature Pulse Rate 77 75 Respiratory Rate 12 Blood Pressure 115/72 Pulse Oximetry 99 99 Oxygen Delivery Method Room Air 07/15/24 15:00 07/15/24 15:00 07/15/24 15:10 Temperature Pulse Rate 77 86 Respiratory Rate 23 18 Blood Pressure 118/73 Pulse Oximetry 99 98 Oxygen Delivery Method Room Air Medical Decision Making <Julián Sloan MD - Last Filed: 07/15/24 10:52> Lab Data Lab results reviewed: Yes I reviewed the patient's lab results. 07/15/24 13:37 07/15/24 04:22 Labs: Lab Results 07/15/24 07/15/24 07/15/24 Range/Units 04:11 04:22 05:15 WBC 7.1 (4.5-11.0) X10^3/uL RBC 3.30 L (4.0-5.2) X10^6/uL Hgb 6.9 L* (12.0-16.0) g/dL Hct 22.6 L (36-46) % MCV 68.5 L (80-100) fL MCH 20.9 L (26-34) PG MCHC 30.5 (30-36) % RDW 17.6 H (11.6-14.8) % Plt Count 393 (150-400) X10^3/uL Neut % (Auto) 62.4 (50-75) % Lymph % (Auto) 27.0 (25-40) % Burt % (Auto) 7.1 (3-14) % Eos % (Auto) 2.7 (2-4) % Baso % (Auto) 0.8 (0-2) % Neut # (Auto) 4500 (2979-6893) /uL Lymph # (Auto) 1900 (9518-5961) /uL Burt # (Auto) 500 (0-900) /uL Eos # (Auto) 200 (0-450) /uL Baso # (Auto) 100 (0-100) /uL Platelet Estimate Adequate on smear RBC Morphology See below Hypochromasia 2+ H Anisocytosis 1+ H Microcytosis 1+ H Target Cells 1+ H PT 9.4 (9.4-12.5) SECONDS INR 0.8 L (0.9-1.3) Sodium 136 L (137-145) mmol/L Potassium 4.1 (3.4-5.1) mmol/L Chloride 109 H (98-107) mmol/L Carbon Dioxide 19 L (22-32) mmol/L BUN 17 (7-17) mg/dL Creatinine 0.70 (0.52-1.04) mg/dL Estimated GFR > 60 (>60) mL/min BUN/Creatinine Ratio 24.3 H (6-22) Glucose 109 H (70-100) mg/dL Lactate 1.1 (0.7-2.1) mmol/L Calcium 9.0 (8.4-10.2) mg/dL Total Bilirubin 0.3 (0.2-1.3) mg/dL AST 25 (14-36) IU/L ALT 21 (<35) IU/L Alkaline Phosphatase 46 (38-126) U/L Total Creatine Kinase 40 (30-135) U/L Troponin I < 0.012 (0.01-0.034) ng/mL Total Protein 6.9 (6.3-8.2) g/dL Albumin 4.4 (3.5-5.0) g/dL Globulin 2.5 (1.7-4.1) g/dL Albumin/Globulin Ratio 1.8 (1.0-2.8) Lipase 173 (23-300) U/L HCG, Quant < 2.39 mIU/mL Urine Color Yellow Urine Appearance Clear Urine pH 6.0 (4.5-8.0) Ur Specific [place] <=1.005 (1.000-1.035) Urine Protein Negative (Negative) Urine Glucose (UA) Negative (Negative) g/dL Urine Ketones Negative (NEGATIVE) Urine Occult Blood 1+ H (Negative) Urine Nitrate Negative (Negative) Urine Bilirubin Negative (NEGATIVE) Urine Urobilinogen 0.2 (0.2) E.U./dL Ur Leukocyte Esterase Negative (NEGATIVE) Urine RBC 0-1/hpf (0-5/HPF) Urine WBC None seen (0-5/HPF) Ur Squamous Epith Cells 0-1 /hpf (0-5/HPF) Urine Bacteria None seen (None) Ur Culture Indicated? Cult not indicated Vol Urine Centrifuged 10ml (spun) Blood Type AB Positive Antibody Screen Negative Crossmatch See Detail 07/15/24 Range/Units 13:37 WBC (4.5-11.0) X10^3/uL RBC (4.0-5.2) X10^6/uL Hgb 10.0 L (12.0-16.0) g/dL Hct 31.7 L (36-46) % MCV (80-100) fL MCH (26-34) PG MCHC (30-36) % RDW (11.6-14.8) % Plt Count (150-400) X10^3/uL Neut % (Auto) (50-75) % Lymph % (Auto) (25-40) % Burt % (Auto) (3-14) % Eos % (Auto) (2-4) % Baso % (Auto) (0-2) % Neut # (Auto) (8965-3592) /uL Lymph # (Auto) (8310-9480) /uL Burt # (Auto) (0-900) /uL Eos # (Auto) (0-450) /uL Baso # (Auto) (0-100) /uL Platelet Estimate RBC Morphology Hypochromasia Anisocytosis Microcytosis Target Cells PT (9.4-12.5) SECONDS INR (0.9-1.3) Sodium (137-145) mmol/L Potassium (3.4-5.1) mmol/L Chloride (98-107) mmol/L Carbon Dioxide (22-32) mmol/L BUN (7-17) mg/dL Creatinine (0.52-1.04) mg/dL Estimated GFR (>60) mL/min BUN/Creatinine Ratio (6-22) Glucose (70-100) mg/dL Lactate (0.7-2.1) mmol/L Calcium (8.4-10.2) mg/dL Total Bilirubin (0.2-1.3) mg/dL AST (14-36) IU/L ALT (<35) IU/L Alkaline Phosphatase (38-126) U/L Total Creatine Kinase (30-135) U/L Troponin I (0.01-0.034) ng/mL Total Protein (6.3-8.2) g/dL Albumin (3.5-5.0) g/dL Globulin (1.7-4.1) g/dL Albumin/Globulin Ratio (1.0-2.8) Lipase (23-300) U/L HCG, Quant mIU/mL Urine Color Urine Appearance Urine pH (4.5-8.0) Ur Specific [place] (1.000-1.035) Urine Protein (Negative) Urine Glucose (UA) (Negative) g/dL Urine Ketones (NEGATIVE) Urine Occult Blood (Negative) Urine Nitrate (Negative) Urine Bilirubin (NEGATIVE) Urine Urobilinogen (0.2) E.U./dL Ur Leukocyte Esterase (NEGATIVE) Urine RBC (0-5/HPF) Urine WBC (0-5/HPF) Ur Squamous Epith Cells (0-5/HPF) Urine Bacteria (None) Ur Culture Indicated? Vol Urine Centrifuged Blood Type Antibody Screen Crossmatch ECG Data Interpretation: Normal sinus rhythm with rate of 86, no obvious ST segment elevation or depression changes. UT 206, QRS 70, QTC 426. MDM Narrative Medical decision making narrative: 43-year-old female with history of chronic vestibulitis status post 2020 brainstem meningioma excision, with intermittent vaginal bleeding since June, feeling more dizzy in context of recent vaginal bleeding. No fevers or chills. Meclizine does not usually seemed to help the dizziness symptoms. Chest x-ray, single view. Impressions: ?No acute cardiopulmonary abnormality is identified.? See teleradiology report Hemoglobin 6.9, compared to 13 in September 2022. Type and screen, will transfuse 1 unit packed red blood cells. Transfusion 1u PRBC ordered. manometer technician reports presence of 3 cm uterine fibroid, adnexal cysts, no free fluid. Await Radiology over reading. Pelvic ultrasound transabdominal exam. Impressions: ?Fibroid uterus. Endometrium not well seen. Complex cyst within the right ovary. Recommend 6 week follow up pelvic ultrasound. In text portion there is mention of right corpus submucosal fibroid measuring 2.6 x 2.9 x 2.8 cm. There is good blood flow to both ovaries. See radiology report. Patient given copy of the ultrasound Radiology report, with explanation of submucosal fibroid, that might be the source of her bleeding 0630, blood pressure and heart rate normal, still awaiting arrival of packed cell unit for transfusion. Repeat hemoglobin 1 hour after transfusion completion. 0700, no active vaginal bleeding thus far multiple hours while here, transfusion in progress, repeat hemoglobin to be drawn post transfusion, anticipate consultation with gynecology for disposition plan then. Signed out to oncoming ED shift physician Dr. Neil <Candice Neil, DO - Last Filed: 07/15/24 18:14> Lab Data Labs: Lab Results 07/15/24 07/15/24 07/15/24 Range/Units 04:11 04:22 05:15 WBC 7.1 (4.5-11.0) X10^3/uL RBC 3.30 L (4.0-5.2) X10^6/uL Hgb 6.9 L* (12.0-16.0) g/dL Hct 22.6 L (36-46) % MCV 68.5 L (80-100) fL MCH 20.9 L (26-34) PG MCHC 30.5 (30-36) % RDW 17.6 H (11.6-14.8) % Plt Count 393 (150-400) X10^3/uL Neut % (Auto) 62.4 (50-75) % Lymph % (Auto) 27.0 (25-40) % Burt % (Auto) 7.1 (3-14) % Eos % (Auto) 2.7 (2-4) % Baso % (Auto) 0.8 (0-2) % Neut # (Auto) 4500 (4283-1809) /uL Lymph # (Auto) 1900 (9445-0349) /uL Burt # (Auto) 500 (0-900) /uL Eos # (Auto) 200 (0-450) /uL Baso # (Auto) 100 (0-100) /uL Platelet Estimate Adequate on smear RBC Morphology See below Hypochromasia 2+ H Anisocytosis 1+ H Microcytosis 1+ H Target Cells 1+ H PT 9.4 (9.4-12.5) SECONDS INR 0.8 L (0.9-1.3) Sodium 136 L (137-145) mmol/L Potassium 4.1 (3.4-5.1) mmol/L Chloride 109 H (98-107) mmol/L Carbon Dioxide 19 L (22-32) mmol/L BUN 17 (7-17) mg/dL Creatinine 0.70 (0.52-1.04) mg/dL Estimated GFR > 60 (>60) mL/min BUN/Creatinine Ratio 24.3 H (6-22) Glucose 109 H (70-100) mg/dL Lactate 1.1 (0.7-2.1) mmol/L Calcium 9.0 (8.4-10.2) mg/dL Total Bilirubin 0.3 (0.2-1.3) mg/dL AST 25 (14-36) IU/L ALT 21 (<35) IU/L Alkaline Phosphatase 46 (38-126) U/L Total Creatine Kinase 40 (30-135) U/L Troponin I < 0.012 (0.01-0.034) ng/mL Total Protein 6.9 (6.3-8.2) g/dL Albumin 4.4 (3.5-5.0) g/dL Globulin 2.5 (1.7-4.1) g/dL Albumin/Globulin Ratio 1.8 (1.0-2.8) Lipase 173 (23-300) U/L HCG, Quant < 2.39 mIU/mL Urine Color Yellow Urine Appearance Clear Urine pH 6.0 (4.5-8.0) Ur Specific [place] <=1.005 (1.000-1.035) Urine Protein Negative (Negative) Urine Glucose (UA) Negative (Negative) g/dL Urine Ketones Negative (NEGATIVE) Urine Occult Blood 1+ H (Negative) Urine Nitrate Negative (Negative) Urine Bilirubin Negative (NEGATIVE) Urine Urobilinogen 0.2 (0.2) E.U./dL Ur Leukocyte Esterase Negative (NEGATIVE) Urine RBC 0-1/hpf (0-5/HPF) Urine WBC None seen (0-5/HPF) Ur Squamous Epith Cells 0-1 /hpf (0-5/HPF) Urine Bacteria None seen (None) Ur Culture Indicated? Cult not indicated Vol Urine Centrifuged 10ml (spun) Blood Type AB Positive Antibody Screen Negative Crossmatch See Detail 07/15/24 Range/Units 13:37 WBC (4.5-11.0) X10^3/uL RBC (4.0-5.2) X10^6/uL Hgb 10.0 L (12.0-16.0) g/dL Hct 31.7 L (36-46) % MCV (80-100) fL MCH (26-34) PG MCHC (30-36) % RDW (11.6-14.8) % Plt Count (150-400) X10^3/uL Neut % (Auto) (50-75) % Lymph % (Auto) (25-40) % Burt % (Auto) (3-14) % Eos % (Auto) (2-4) % Baso % (Auto) (0-2) % Neut # (Auto) (9060-2918) /uL Lymph # (Auto) (2165-7644) /uL Burt # (Auto) (0-900) /uL Eos # (Auto) (0-450) /uL Baso # (Auto) (0-100) /uL Platelet Estimate RBC Morphology Hypochromasia Anisocytosis Microcytosis Target Cells PT (9.4-12.5) SECONDS INR (0.9-1.3) Sodium (137-145) mmol/L Potassium (3.4-5.1) mmol/L Chloride (98-107) mmol/L Carbon Dioxide (22-32) mmol/L BUN (7-17) mg/dL Creatinine (0.52-1.04) mg/dL Estimated GFR (>60) mL/min BUN/Creatinine Ratio (6-22) Glucose (70-100) mg/dL Lactate (0.7-2.1) mmol/L Calcium (8.4-10.2) mg/dL Total Bilirubin (0.2-1.3) mg/dL AST (14-36) IU/L ALT (<35) IU/L Alkaline Phosphatase (38-126) U/L Total Creatine Kinase (30-135) U/L Troponin I (0.01-0.034) ng/mL Total Protein (6.3-8.2) g/dL Albumin (3.5-5.0) g/dL Globulin (1.7-4.1) g/dL Albumin/Globulin Ratio (1.0-2.8) Lipase (23-300) U/L HCG, Quant mIU/mL Urine Color Urine Appearance Urine pH (4.5-8.0) Ur Specific [place] (1.000-1.035) Urine Protein (Negative) Urine Glucose (UA) (Negative) g/dL Urine Ketones (NEGATIVE) Urine Occult Blood (Negative) Urine Nitrate (Negative) Urine Bilirubin (NEGATIVE) Urine Urobilinogen (0.2) E.U./dL Ur Leukocyte Esterase (NEGATIVE) Urine RBC (0-5/HPF) Urine WBC (0-5/HPF) Ur Squamous Epith Cells (0-5/HPF) Urine Bacteria (None) Ur Culture Indicated? Vol Urine Centrifuged Blood Type Antibody Screen Crossmatch MDM Narrative Medical decision making narrative: 43-year-old female with history of chronic vestibulitis status post 2020 brainstem meningioma excision, with intermittent vaginal bleeding since June, feeling more dizzy in context of recent vaginal bleeding. No fevers or chills. Meclizine does not usually seemed to help the dizziness symptoms. Chest x-ray, single view. Impressions: ?No acute cardiopulmonary abnormality is identified.? See teleradiology report Hemoglobin 6.9, compared to 13 in September 2022. Type and screen, will transfuse 1 unit packed red blood cells. Transfusion 1u PRBC ordered. manometer technician reports presence of 3 cm uterine fibroid, adnexal cysts, no free fluid. Await Radiology over reading. Pelvic ultrasound transabdominal exam. Impressions: ?Fibroid uterus. Endometrium not well seen. Complex cyst within the right ovary. Recommend 6 week follow up pelvic ultrasound. In text portion there is mention of right corpus submucosal fibroid measuring 2.6 x 2.9 x 2.8 cm. There is good blood flow to both ovaries. See radiology report. Patient given copy of the ultrasound Radiology report, with explanation of submucosal fibroid, that might be the source of her bleeding 0630, blood pressure and heart rate normal, still awaiting arrival of packed cell unit for transfusion. Repeat hemoglobin 1 hour after transfusion completion. 0700, no active vaginal bleeding thus far multiple hours while here, transfusion in progress, repeat hemoglobin to be drawn post transfusion, anticipate consultation with gynecology for disposition plan then. Signed out to oncoming ED shift physician Dr. Neil [id number] Dr. Neil 07/15/2024: Patient signed out to myself patient hemodynamically stable labs reviewed hemoglobin 6.9 was 13.7 in September 2022 microcytic anemia labs today. Patient's CO2 is 19 sodium is 136 chloride 109 potassium 0.1 glucose 1 9 troponin was less than 0.012 with a HCT of less 239. Patient had pelvic ultrasound does show a uterine fibroid that is 2.6 x 2.9 x 2.8 cm as a complex cyst in the right ovary 2.3 x 1.6.2.5 cm flow is demonstrated to bilateral ovaries with normal spectral Doppler imaging of both no fluid in the cul-de-sac with no adnexal masses identified. Patient also had chest x-ray which was negative. Was type and screen and receiving 1 unit of packed red blood cells and 1L normal saline. Patient evaluated by myself. Currently resting in bed she states no active bleeding while here in the department but describes significantly heavy bleeding since June 19 with a about a 6 day window without bleeding. Was having heavier but short periods for the past several months but then most recent changed since June. Patient is not on any anticoagulants. Spoke with Dr. Angel microfilm duplicating unit supervisor: Has not we give 2 units total of blood, TXA a 1000 mg IV followed by TXA 1300 mg p.o. t.i.d. times days and medroxyprogesterone acetate 10 mg p.o. b.i.d. times 10 days. Patient is to follow up 1st thing in the next week for repeat evaluation and potential intervention. Recheck after 2units PRBC, repeat hemoglobin is 10 up from 6.9 with a hematocrit of 31. Patient ambulated in the department she states she was feeling much better. Has not had any persistent bleeding here in the department. Discussed she feels comfortable for to return home we will continue with TXA and medroxyprogesterone with follow up this week with OBGYN with strict return precautions. We did discuss keeping for observation but patient feels comfortable returning home at this time she has been hemodynamically stable with a little mild bleeding likely patient's hemoglobin dropped over the month that she has been having bleeding. Critical Care Time <Julián Sloan MD - Last Filed: 07/15/24 10:52> Critical Care Time Total Critical Care Time: 35 Attestation: The high probability of a clinically significant, sudden or life threatening deterioration of the [genitourinary, gynecologic, hematologic ] system(s) required my full and direct attention, intervention and personal management. The aggregate critical care time was [35] minutes. This time is in addition to time spent performing reported procedures but includes the following: [x] Data Review and interpretation [x] Patient assessment and monitoring of vital signs [x] Documentation [x] Medication orders and management Discharge Plan Departure Patient Disposition: Home Clinical Impression: Menorrhagia, Blood loss anemia, Dizziness, Uterine fibroid Instructions: DI for Vaginal Bleeding Activity Restrictions/Additional Instructions: I spoke with Dr. Angel from [facility] today, they asked that we transfuse 2 units of blood and start some medication to help with your bleeding. They would like to follow up with you this upcoming week to talk about interventions for your fibroid and vaginal bleeding. Your pelvic ultrasound imaging does show a fibroid this is likely the source of your bleeding today. Call the office Wednesday to set up an appointment, contact information is included below. Take TXA (tranexamic acid 650mg) 2 tablets (1300mg) by mouth 3 times daily for 5 days Medroxyprogesterone 1 tablet (10mg) twice daily times for 10 days Prescription sent to [facility] in [place]. Return to the ER if you are having persistent bleeding, lightheadedness, new abdominal back or flank pain, any passing out, any chest pain, any shortness of breath, if you are having new swelling of your extremities or other new or concerning changes. Prescriptions: New medroxyprogesterone 10 mg tablet 10 mg PO BID 10 Days Qty: 20 0RF tranexamic acid 650 mg tablet 1,300 mg PO Q8H 5 Days Qty: 30 0RF No Action MULTIVITAMIN (One Daily Multivitamin) 1 tab PO Q DAY Qty: 0 KRILL OIL (#[facility] KRILL OIL) 1,000 mg PO Q DAY Qty: 0 Lactobacillus Reuteri (#PROBIOTICA) Qty: 0 [VITAMIN K] 150 mg PO Q DAY Qty: 0 Coenzyme Q10 (#COENZYME Q-10) 50 mg PO Q DAY Qty: 0 LYSINE/VIT B1/VIT B12/VIT B6 (JETS) 1 ctb PO Q DAY Qty: 0 cholecalciferol (vitamin D3) [Vitamin D3] 1,000 UNIT tablet 8,000 iu PO Q DAY Qty: 0 [IODINE] 25 mg PO Qty: 0 [CMP estradiol 0.0125%] cream 1 g vaginal 2XW Qty: 30 3RF Rx Instructions: daily x 14 days, then twice weekly valacyclovir [Valtrex] 500 mg tablet 500 mg PO BID Qty: 180 3RF thyroid (pork) [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
--- NOTE | 2024-07-15 04:11 | DI.US.S_ITS ---
PROCEDURE: US PELVIC COMPLETE INDICATIONS: vaginal bleeding TECHNIQUE: Real-time scanning was performed of the pelvic organs, with image documentation. Additional endovaginal scanning was necessary due to incomplete visualization of the adnexal and endometrial structures by transabdominal scanning. COMPARISON: None. FINDINGS: Uterus: Uterus is the uterus is of normal size and morphology measuring 9.5 x 4.9 x 6.4 cm. Within the fundus there is a submucosal fibroid which measures 2.6 x 2.9 x 2.8 cm. This obscures the endometrium which is not measurable. Ovaries: The right ovary measures 3.4 x 3.6 x 2.3 cm, with a calculated ovarian volume of 14.7 cc. The left ovary measures 2.0 x 3 the.3 x 1.8 cm, with a calculated ovarian volume of 6.2 cc, and demonstrates a dominant follicle. The ovaries have a normal sonographic appearance. Less than 12 follicles can be seen in each ovary. No adnexal masses are seen. Other: No pathologic free abdominal or pelvic fluid. IMPRESSION: Large submucosal uterine fibroid measuring 3 cm. Otherwise normal exam. We strive to produce accurate, complete, and clear reports of imaging services. To assist us in improving patient care, this report was composed using standard report templates and voice recognition software. Therefore, it may contain abnormal punctuation, insertions and/or omissions. Occasional wrong-word or sound-alike substitutions may occur. Though we review the report and make efforts to correct it, we do recommend that the report be read carefully in proper context to recognize any text inaccuracies. Dictated by: Lydia Singh M.D. on 07/15/2024 at 8:12 Approved by: Lydia Singh M.D. on 07/15/2024 at 8:15
[2024-07-15 04:20] LABS: Appearance Urine UA CLEAR; Bilirubin Urine UA NEGATIVE (NEGATIVE); Color Urine UA YELLOW; Glucose Urine UA NEGATIVE (Negative); Ketones Urine UA NEGATIVE (NEGATIVE); Leukocyte Esterase Urine UA NEGATIVE (NEGATIVE); Nitrite Urine UA NEGATIVE (Negative); Occult Blood Urine UA 1+ (Negative); Protein Urine UA NEGATIVE (Negative); Specific Gravity Urine UA <=1.005 (1.000-1.035); Urobilinogen Urine UA 0.2 E.U./dL (0.2)
[2024-07-15 04:33] LABS: Bacteria Urine None Seen; Culture Indicated Urine Cult Not Indicated; RBC Urine 0-1/HPF (0-5/HPF); Squamous Epithelial Cell Urine 0-1 /HPF (0-5/HPF); Urine Volume 10mL (spun); WBC Urine None Seen (0-5/HPF)
[2024-07-15] MEDS: SODIUM CHLORIDE 0.9% 1,000 ML 1000 ML IV (04:34)
[2024-07-15 04:40] LABS: Add Manual Diff / Slide Review NO; Basophils Absolute Auto 100 /uL (0-100); Basophils Percent Auto 0.8 % (0-2); Eosinophils Absolute Auto 200 /uL (0-450); Eosinophils Percent Auto 2.7 % (2-4); Hematocrit 22.6 % (36-46); Lymphocytes Absolute Auto 1900 /uL (1100-4500); Mean Corpuscular HGB Conc 30.5 % (30-36); Mean Corpuscular Hemoglobin 20.9 PG (26-34); Mean Corpuscular Volume 68.5 fL (80-100); Monocytes Absolute Auto 500 /uL (0-900); Monocytes Percent Auto 7.1 % (3-14); Neutrophils Absolute Auto 4500 /uL (1500-7000); Neutrophils Percent Auto 62.4 % (50-75); Platelet Count 393 X10^3/uL (150-400); Red Cell Distribution Width 17.6 % (11.6-14.8); White Blood Cell Count 7.1 X10^3/uL (4.5-11.0)
[2024-07-15 04:41] LABS: Hemoglobin 6.9 g/dL (12.0-16.0)
--- NOTE | 2024-07-15 04:45 | EKG_ITS ---
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
[2024-07-15 04:46] LABS: INR 0.8 (0.9-1.3); Prothrombin Time 9.4 SECONDS (9.4-12.5)
[2024-07-15 04:52] LABS: Lactate (Lactic Acid) 1.1 mmol/L (0.7-2.1)
--- NOTE | 2024-07-15 04:52 | PC.NURSE ---
NS bolus stopped at this time per Dr. Slona
[2024-07-15 04:53] LABS: Alanine Aminotransferase 21 IU/L (<35); Albumin 4.4 g/dL (3.5-5.0); Albumin Globulin Ratio 1.8 (1.0-2.8); Alkaline Phosphatase 46 U/L (38-126); Aspartate Aminotransferase 25 IU/L (14-36); BUN Creatinine Ratio 24.3 (6-22); Bilirubin Total 0.3 mg/dL (0.2-1.3); Blood Urea Nitrogen 17 mg/dL (7-17); Carbon Dioxide 19 mmol/L (22-32); Chloride 109 mmol/L (98-107); Creatine Kinase 40 U/L (30-135); Estimated Glomerular Filt Rate > 60 mL/min (>60); Globulin 2.5 g/dL (1.7-4.1); Glucose 109 mg/dL (70-100); HEMOLYSIS < 15 (0-50); Lipase 173 U/L (23-300); Potassium 4.1 mmol/L (3.4-5.1); Sodium 136 mmol/L (137-145); Total Protein 6.9 g/dL (6.3-8.2)
--- NOTE | 2024-07-15 04:53 | PC.NURSE ---
US at bedside
--- NOTE | 2024-07-15 04:55 | PC.NURSE ---
Pt ambulatory to restroom with 1 person assist
[2024-07-15 05:04] LABS: Troponin I < 0.012 ng/mL (0.01-0.034)
[2024-07-15 05:10] LABS: HCG Quantitative /Beta subunit < 2.39 mIU/mL
[2024-07-15 05:40] LABS: Anisocytosis 1+; Hypochromasia 2+; Microcytosis 1+; Platelet Estimate Adequate on smear; Target Cells 1+
--- NOTE | 2024-07-15 05:56 | PC.NURSE ---
Pt self reports taking methylene blue yesterday sometime to help with her fatigue and iron issues.
--- NOTE | 2024-07-15 07:46 | PC.NURSE ---
blood started at 50ml/hr. tolerated well vs wnl after 15 mins infusion. rate changed to 100ml/hr. tolerating wel
[2024-07-15] MEDS: MEDROXYPROGESTERONE ACETATE 10 MG TABLET PO (09:05)
[2024-07-15] MEDS: TRANEXAMIC ACID 1,000 MG in SODIUM CHLORIDE 0.9% 100 ML 200 MG IV (09:05)
[2024-07-15] MEDS: ACETAMINOPHEN 325 MG TABLET 975 MG PO (09:52)
--- NOTE | 2024-07-15 11:00 | PC.NURSE ---
Pt denies bleeding currently.
[2024-07-15 13:52] LABS: Hematocrit 31.7 % (36-46)
== END 2024-07-15 15:30 | disposition home or self-care (01) ==
PROVIDERS: Emergency Medicine; Emergency Provider Emergency Medicine; Family Provider Nurse Practitioner Family; PCP Nurse Practitioner Family
DX: N92.0 Excessive and frequent menstruation with regular cycle (principal); R42 Dizziness and giddiness; D25.0 Submucous leiomyoma of uterus; D50.0 Iron deficiency anemia secondary to blood loss (chronic); H91.91 Unspecified hearing loss, right ear; Z86.69 Personal history of other diseases of the nervous system and sense organs; Z98.890 Other specified postprocedural states
CPT/HCPCS: 36415; 36430; 71045; 76856; 80053; 81001; 82550; 83605; 83690; 84484; 84702; 85014; 85018; 85025; 85610; 86850; 86900; 86901; 93005; 96365; 99285; 99291; P9016

== ENCOUNTER → 2024-07-27 16:01 | Outpatient (CLI) | payer MEDICARE, OTHER, SELFPAY ==
[2024-07-27 16:58] LABS: Add Manual Diff / Slide Review NO; Basophils Absolute Auto 0 /uL (0-100); Basophils Percent Auto 0.4 % (0-2); Eosinophils Absolute Auto 200 /uL (0-450); Eosinophils Percent Auto 2.1 % (2-4); Hematocrit 33.3 % (36-46); Hemoglobin 10.6 g/dL (12.0-16.0); Lymphocytes Absolute Auto 2200 /uL (1100-4500); Lymphocytes Percent Auto 25.5 % (25-40); Mean Corpuscular HGB Conc 31.7 % (30-36); Mean Corpuscular Volume 75.8 fL (80-100); Monocytes Absolute Auto 500 /uL (0-900); Monocytes Percent Auto 5.6 % (3-14); Neutrophils Absolute Auto 5600 /uL (1500-7000); Neutrophils Percent Auto 66.4 % (50-75); Platelet Count 472 X10^3/uL (150-400); Red Cell Distribution Width 23.3 % (11.6-14.8); White Blood Cell Count 8.5 X10^3/uL (4.5-11.0)
[2024-07-27 17:20] LABS: Anisocytosis 2+
== END ==
LOC: LAB 16:04
PROVIDERS: Family Provider Nurse Practitioner Family; PCP Nurse Practitioner Family; Referring Provider Obstetrics & Gynecology; Visit Provider Obstetrics & Gynecology
DX: N93.9 Abnormal uterine and vaginal bleeding, unspecified (principal)
CPT/HCPCS: 85025

== ENCOUNTER 2024-09-25 17:19 | Emergency (ER) | payer MEDICARE, SELFPAY ==
[2024-09-25 17:33] VITALS: BP 126/57; PULSE 93; RESP 17; TEMP 37.1; O2SAT 98; BMI 24.3
--- NOTE | 2024-09-25 17:42 | PC.NURSE ---
When setting up for line and labs patient informed me that she didn't want to stay at this time when she asked about the wait. Educated her that being evaluated given her history is important and patient stated that she would return, possibly tonight. Patient acknowledged risks of leaving and when to return.
== END 2024-09-25 17:44 | disposition left against medical advice (07) ==
PROVIDERS: Emergency Provider Emergency Medicine; Family Provider Nurse Practitioner Family; PCP Nurse Practitioner Family
CPT/HCPCS: 99281

== ENCOUNTER 2024-09-26 20:38 | Emergency (ER) | payer MEDICARE, SELFPAY ==
[2024-09-26 21:04] VITALS: BP 108/55; PULSE 88; RESP 15; TEMP 36.6; O2SAT 99; BMI 23.5
[2024-09-27] VITALS (11 sets, daily range): BP systolic 103–118; BP diastolic 55–65; PULSE 71–83; RESP 16–18; TEMP 37–37.2; O2SAT 98–100
[2024-09-27 02:09] LABS: Appearance Urine UA CLEAR; Bilirubin Urine UA NEGATIVE (NEGATIVE); Color Urine UA YELLOW; Glucose Urine UA 1+ g/dL (Negative); Ketones Urine UA NEGATIVE (NEGATIVE); Leukocyte Esterase Urine UA NEGATIVE (NEGATIVE); Nitrite Urine UA NEGATIVE (Negative); Occult Blood Urine UA 1+ (Negative); Protein Urine UA NEGATIVE (Negative); Urobilinogen Urine UA 0.2 E.U./dL (0.2)
[2024-09-27 02:18] LABS: pH Urine UA 5.5 (4.5-8.0)
[2024-09-27 02:19] LABS: Bacteria Urine None Seen; Culture Indicated Urine Cult Not Indicated; RBC Urine None Seen (0-5/HPF); Squamous Epithelial Cell Urine None Seen (0-5/HPF); Urine Volume 10mL (spun); WBC Urine None Seen (0-5/HPF)
--- NOTE | 2024-09-27 02:29 | ED_ITS ---
HPI - General Adult General Chief complaint: Urogenital-Female Stated complaint: thinks needs a blood transfusion Time Seen by Provider: 09/27/24 02:29 Source: patient Mode of arrival: Ambulatory History of Present Illness HPI narrative: Patient is a 43-year-old female past medical history of menometrorrhagia hypothyroidism, comes into the ED from home for evaluation of persistent menometrorrhagia. She states that she has a history of needing blood transfusions in the past does have 2 OBGYN she follows with, [place] (Dr. Wisdom) [place] (Dr. Angel). She states that she always has baseline vaginal bleeding given her history but does have a scheduled hysterectomy this Wednesday by Dr. Angel. She comes in today because she is worried she might need a blood transfusion due to the fact that she states that she has been continuously bleeding since the of september. States that she goes through ?a lot of pads and tampons therefore she is unable to calculate how many. She states that she is feeling more fatigued and feels like her heart rate goes up significantly whenever she is moving. She denies any headache visual disturbances chest pain fever chills nausea vomiting abdominal pain or any other GI/ symptoms time. Related Data Home Medications Medication Instructions Recorded Confirmed LYSINE/VIT B1/VIT B12/VIT B6 (JETS) 1 ctb PO Q DAY ##0 05/09/12 07/19/24 iodine-sodium iodide 2 % topical 10 ea topical ##0 12/09/12 07/19/24 tincture (iodine) acetaminophen 650 mg 650 mg PO Q12H 08/12/22 09/26/24 tablet,extended release (Tylenol Arthritis Pain) gabapentin 300 mg capsule 900 mg PO BID 08/12/22 09/22/24 ibuprofen 200 mg capsule 200 mg PO Q6H PRN Pain 08/12/22 09/26/24 pregabalin 75 mg capsule 75 mg PO QAM 08/12/22 09/22/24 baclofen 10 mg tablet 10 - 20 mg PO 3XD PRN Muscle Spasm 07/15/24 09/22/24 progesterone micronized 200 mg 200 mg PO BID 09/22/24 09/22/24 capsule thyroid (pork) 90 mg tablet (COCOA BEAN CLEANER 90 mg PO DAILY 09/22/24 09/22/24 Thyroid) tranexamic acid 650 mg tablet 1,300 mg PO 3XD PRN Bleeding. 09/22/24 09/22/24 trazodone 100 mg tablet 50 - 100 mg PO QPM 09/22/24 09/22/24 valacyclovir 500 mg tablet 500 mg PO BID 09/22/24 09/22/24 [id number]-[id number]-whoaydvb 250 2 tab PO Q6H PRN Migraine Headache 09/26/24 09/26/24 mg-250 mg-65 mg tablet (Excedrin Migraine) Previous Rx's Medication Instructions Recorded medroxyprogesterone 10 mg tablet 10 mg PO .COMPLEX #100 tabs 09/25/24 Allergies Allergy/AdvReac Type Severity Reaction Status Date / Time egg Allergy Mild Fatigued Verified 09/25/24 17:33 garlic Allergy Mild Fatigued Verified 09/25/24 17:33 lactase [From Dairy Aid] Allergy Mild Fatigued Verified 09/25/24 17:33 amoxicillin [AMOXICILLIN] Allergy Unknown Verified 09/25/24 17:33 Penicillins [PENICILLINS] AdvReac Unknown RASH Verified 09/25/24 17:33 Review of Systems Review of Systems Narrative: General: Denies fever, chills, weight loss HEENT: Denies headache, eye drainage, eye irritation, head trauma, sore throat, voice change Cardiovascular: Denies any chest pain, palpitations, shortness of breath, tachycardia Respiratory: Denies any shortness of breath, cough, wheeze, stridor GI/: Positive vaginal bleeding, Denies any abdominal pain, nausea, vomiting, diarrhea, bright red blood per rectum, melanotic stools, urinary frequency, urinary retention, dysuria, hematuria MSK: Denies any joint pain, muscle pains, swelling Skin: Denies any rashes, lesions, discoloration Neuro: Denies any headache, lightheadedness, dizziness, fainting, weakness Psych: Denies SI/HI Patient History Medical History (Updated 09/27/24 @ 03:34 by Ibrahima Faust DO) Vestibular disorder Rosacea (~2019) Plantar warts (~1991) Osteoarthritis (~2021) Allergies (~2013) Depression (~2021) Anxiety (~2020) Headache (~2020) ADHD (~2020) Upper back pain (~2020) Neck pain (~2020) Scoliosis (~2009) Osteopenia (~2009) Chicken pox (~1983) Anemia (~2022) Vertigo (~2020) Tinnitus Hearing loss Ovarian cyst (~2008) Irregular menstrual cycle (~2019) Hypothyroidism Genital HSV (~2001) Dysmenorrhea Menorrhagia (~2021) Trigeminal neuralgia of right side of face (~2020) Occipital neuralgia (~2020) History of meningioma Surgical History (Updated 09/18/24 @ 14:26 by Aislinn Flanagan RN) Anesthesia History of appendectomy (~01/01/21) History of mandibular surgery (~03/2016) H/O brain surgery (~05/27/21) History of third molar tooth extraction Family History (Updated 12/30/23 @ 18:49 by Denisse Cole) Father Prediabetes Janet's disease Psoriasis Mother Prediabetes Hypothyroidism Cataracts, bilateral Sister Hypothyroidism Raynaud's syndrome Grandfather History of heart disease Grandmother Diabetes mellitus Grandfather Cancer Grandmother Cancer Social History Smoking Status: Former smoker alcohol intake: current Smoking Status: Former smoker Exam Narrative Exam Narrative: General: Cooperative, comfortable, well-developed, not in acute distress HEENT: Normocephalic, atraumatic, PERRLA, normal sclera, eyelids normal, Neck: Active full range of motion, atraumatic Chest: Normal to inspection, negative crepitus, no overlying erythema ecchymosis Respiratory: Normal respiratory effort, not in acute respiratory distress, clear to auscultation bilaterally negative cough, wheeze, tachypnea, rhonchi, rales Cardiology: Regular rate rhythm negative gallop, murmur, rubs GI/: Normal to inspection, soft, nonrigid, no tenderness to palpation, exam deferred MSK: Full range of active range of motion of all 4 extremities, atraumatic Skin: No rashes lesions noted Neuro: Alert awake oriented x3, moves all 4 extremities spontaneously, cranial nerves intact, able to answer all questions appropriately follows commands appropriately Psych: Cooperative, negative suicidal or homicidal ideations Initial Vital Signs Initial Vital Signs: Vital Signs Temperature 97.8 F 09/26/24 21:04 Pulse Rate 88 09/26/24 21:04 Respiratory Rate 15 09/26/24 21:04 Blood Pressure 108/55 L 09/26/24 21:04 Pulse Oximetry 99 09/26/24 21:04 Oxygen Delivery Method Room Air 09/26/24 21:04 Course Orders Ordered: ED Orders 09/27/24 01:06 Urinalysis and Microscopic Stat 09/27/24 01:45 BMP [Basic Metabolic Panel] Stat PT [Prothrombin Time INR] Stat PTT Partial Thromboplastin Michael Stat 09/27/24 03:00 CBC Auto Diff [Complete Blood Count AUTO DIFF] Stat PRBC [Packed Cells] Stat Type and Screen Stat Vital Signs Vital signs: Vital Signs - 8 hr 09/27/24 02:28 09/27/24 02:30 09/27/24 02:30 Temperature Pulse Rate 75 72 Respiratory Rate 18 17 Blood Pressure 117/55 L Pulse Oximetry 100 100 Oxygen Delivery Method Room Air Room Air 09/27/24 03:00 09/27/24 03:00 09/27/24 04:04 Temperature Pulse Rate 71 80 Respiratory Rate Blood Pressure 111/62 Pulse Oximetry 100 98 Oxygen Delivery Method 09/27/24 04:15 09/27/24 04:15 09/27/24 04:16 Temperature 98.9 F Pulse Rate 74 75 Respiratory Rate 17 Blood Pressure 105/65 105/65 Pulse Oximetry 99 Oxygen Delivery Method 09/27/24 04:30 09/27/24 04:39 09/27/24 04:39 Temperature 98.6 F Pulse Rate 74 74 Respiratory Rate 17 17 Blood Pressure 103/64 103/59 L 103/59 L Pulse Oximetry Oxygen Delivery Method Medical Decision Making Differential Diagnosis Differential Diagnosis: Anemia, abnormal uterine bleeding Lab Data 09/27/24 03:00 09/27/24 01:45 Labs: Lab Results 09/27/24 09/27/24 09/27/24 Range/Units 01:06 01:45 03:00 WBC 8.1 (4.5-11.0) X10^3/uL RBC 2.76 L (4.0-5.2) X10^6/uL Hgb 6.4 L* (12.0-16.0) g/dL Hct 20.6 L* (36-46) % MCV 74.8 L (80-100) fL MCH 23.1 L (26-34) PG MCHC 30.8 (30-36) % RDW 18.6 H (11.6-14.8) % Plt Count 518 H (150-400) X10^3/uL Neut % (Auto) 56.3 (50-75) % Lymph % (Auto) 32.5 (25-40) % [place] % (Auto) 7.3 (3-14) % Eos % (Auto) 3.3 (2-4) % Baso % (Auto) 0.6 (0-2) % Neut # (Auto) 4500 (5500-0018) /uL Lymph # (Auto) 2600 (6806-8221) /uL [place] # (Auto) 600 (0-900) /uL Eos # (Auto) 300 (0-450) /uL Baso # (Auto) 100 (0-100) /uL PT 10.3 (9.4-12.5) SECONDS INR 0.9 (0.9-1.3) APTT 27 (25.1-36.5) SECONDS Sodium 136 L (137-145) mmol/L Potassium 3.5 (3.4-5.1) mmol/L Chloride 107 (98-107) mmol/L Carbon Dioxide 17 L (22-32) mmol/L BUN 14 (7-17) mg/dL Creatinine 0.75 (0.52-1.04) mg/dL Estimated GFR > 60 (>60) mL/min BUN/Creatinine Ratio 18.7 (6-22) Glucose 89 (70-100) mg/dL Calcium 8.8 (8.4-10.2) mg/dL Urine Color Yellow Urine Appearance Clear Urine pH 5.5 (4.5-8.0) Ur Specific [place] 1.010 (1.000-1.035) Urine Protein Negative (Negative) Urine Glucose (UA) 1+ H (Negative) g/dL Urine Ketones Negative (NEGATIVE) Urine Occult Blood 1+ H (Negative) Urine Nitrate Negative (Negative) Urine Bilirubin Negative (NEGATIVE) Urine Urobilinogen 0.2 (0.2) E.U./dL Ur Leukocyte Esterase Negative (NEGATIVE) Urine RBC None seen (0-5/HPF) Urine WBC None seen (0-5/HPF) Ur Squamous Epith Cells None seen (0-5/HPF) Urine Bacteria None seen (None) Ur Culture Indicated? Cult not indicated Vol Urine Centrifuged 10ml (spun) Blood Type AB Positive Antibody Screen Negative Crossmatch See Detail MDM Narrative Medical decision making narrative: 43-year-old female with a past medical history of menometrorrhagia abnormal uterine bleeding comes into the ED for evaluation of increased/persistent vaginal bleeding. She states that she is due to have a hysterectomy performed on 09/21/[address] Angel here. States that she has been having persistent vaginal bleeding since 09/15/2024 therefore she is worried she might need a blood transfusion, she has needed blood transfusion in the past. She states that she does feel a little bit more weak, also stating that she has not noticed that her heart rate goes extremely fast whenever she is minimally exerting herself. She has not on any blood thinners. Patient had lab work performed here in the emergency department to evaluate her hemoglobin level. 0333: Patient re-evaluated no new complaints at this time, informed her of her lab work which was consistent with anemia hemoglobin 6.4, obtained consent we will administer 1 unit PRBC here. 0637: Patient was re-evaluated no new complaints at this time, patient received 1 unit PRBC, patient was given strict return precautions instructed follow up with her OBGYN and primary care doctor she verbalized understanding of this and agrees to being discharged home with outpatient follow up Discharge Plan Departure Patient Disposition: Home Clinical Impression: Symptomatic anemia Instructions: Anemia Activity Restrictions/Additional Instructions: Please follow up with your OBGYN and your primary care doctor Please read the discharge instructions sheet carefully and bring all papers to all doctor follow-up visits, as it may contain information that your doctor may want to see. Disease processes change and evolve, if your symptoms worsen or if you develop any new symptoms that are concerning to you please return for evaluation. Your evaluation today does not show any evidence of any life- threatening/serious illnesses requiring admission to the hospital or surgery. Please follow-up with your doctor for re-evaluation in approximately 1 day. Seek immediate medical attention for any worrisome symptoms. *If you do not have a primary care provider please contact the [facility] Resource line at [phone]. They will ask some questions about your medical history and help get you set up with a doctor in the community. Prescriptions: No Action LYSINE/VIT B1/VIT B12/VIT B6 (JETS) 1 ctb PO Q DAY Qty: 0 iodine-sodium iodide [iodine] 2 % Tincture 10 ea TOPICAL Qty: 0 medroxyprogesterone 10 mg tablet 10 mg PO .COMPLEX Qty: 100 0RF Rx Instructions: Take 2 tables every 2 hours until bleeding stops/significantly slows down, then 2 tabs every 4 hours x 48 hours, then 2 tabs every 6 hrs for 48 hrs, then 2 tabs every 8 hrs x 48hrs, then 2 tabs every 12 hrs x 48hrs, then 2 tabs a day for 7 days. If bleeding picks up again, repeat previous step. If bleeding not slowing/stopping at 48hr alba of step one, call provider. valacyclovir 500 mg tablet 500 mg PO BID trazodone 100 mg tablet 50 - 100 mg PO QPM progesterone micronized 200 mg capsule 200 mg PO BID Patient Comments: 200 qam and 400mg qpm. thyroid (pork) [COCOA BEAN CLEANER Thyroid] 90 mg tablet 90 mg PO DAILY tranexamic acid 650 mg tablet 1,300 mg PO 3XD PRN (Reason: Bleeding.) Excedrin Migraine 250-250-65 mg Tablet 2 tab PO Q6H PRN (Reason: Migraine Headache) baclofen 10 mg tablet 10 - 20 mg PO 3XD PRN (Reason: Muscle Spasm) gabapentin 300 mg capsule 900 mg PO BID Patient Comments: TAKE 3 CAPSULES BY MOUTH TWICE DAILY acetaminophen [Tylenol Arthritis Pain] 650 mg tablet extended release 650 mg PO Q12H ibuprofen 200 mg capsule 200 mg PO Q6H PRN (Reason: Pain) pregabalin 75 mg capsule 75 mg PO QAM Referrals: Courtney Angel ARNP [Primary Care Provider] - Stand Alone Forms: Patient Portal/API/Survey
[2024-09-27 03:13] LABS: INR 0.9 (0.9-1.3); Prothrombin Time 10.3 SECONDS (9.4-12.5)
[2024-09-27 03:16] LABS: PTT Partial Thromboplastin Tim 27 SECONDS (25.1-36.5)
[2024-09-27 03:17] LABS: BUN Creatinine Ratio 18.7 (6-22); Blood Urea Nitrogen 14 mg/dL (7-17); Calcium 8.8 mg/dL (8.4-10.2); Carbon Dioxide 17 mmol/L (22-32); Chloride 107 mmol/L (98-107); Estimated Glomerular Filt Rate > 60 mL/min (>60); Glucose 89 mg/dL (70-100); HEMOLYSIS < 15 (0-50); Potassium 3.5 mmol/L (3.4-5.1); Sodium 136 mmol/L (137-145)
[2024-09-27 03:23] LABS: Add Manual Diff / Slide Review NO; Basophils Absolute Auto 100 /uL (0-100); Basophils Percent Auto 0.6 % (0-2); Eosinophils Absolute Auto 300 /uL (0-450); Eosinophils Percent Auto 3.3 % (2-4); Lymphocytes Absolute Auto 2600 /uL (1100-4500); Lymphocytes Percent Auto 32.5 % (25-40); Mean Corpuscular HGB Conc 30.8 % (30-36); Mean Corpuscular Hemoglobin 23.1 PG (26-34); Mean Corpuscular Volume 74.8 fL (80-100); Monocytes Absolute Auto 600 /uL (0-900); Monocytes Percent Auto 7.3 % (3-14); Neutrophils Absolute Auto 4500 /uL (1500-7000); Neutrophils Percent Auto 56.3 % (50-75); Platelet Count 518 X10^3/uL (150-400); Red Blood Cell Count 2.76 X10^6/uL (4.0-5.2); Red Cell Distribution Width 18.6 % (11.6-14.8); White Blood Cell Count 8.1 X10^3/uL (4.5-11.0)
[2024-09-27 03:24] LABS: Hematocrit 20.6 % (36-46); Hemoglobin 6.4 g/dL (12.0-16.0)
== END 2024-09-27 06:52 | disposition home or self-care (01) ==
PROVIDERS: Emergency Provider Student in an Organized Health Care Education/Training Program; Family Provider Nurse Practitioner Family; PCP Nurse Practitioner Family
DX: D64.9 Anemia, unspecified (principal); N92.1 Excessive and frequent menstruation with irregular cycle
CPT/HCPCS: 36430; 80048; 81001; 85025; 85610; 85730; 86850; 86900; 86901; 99284; P9016

== ENCOUNTER 2024-09-29 06:25 | Day surgery (SDC) | payer MEDICARE, SELFPAY ==
[2024-09-26 13:59] VITALS: BMI 24.1
[2024-09-29] VITALS (15 sets, daily range): BP systolic 94–145; BP diastolic 50–98; PULSE 70–103; RESP 12–22; TEMP 35.8–37; O2SAT 94–100; BMI 24.3; BMI 24.8
--- NOTE | 2024-09-29 | PATH_ITS ---
[facility] Accession Number: [id number] No. of containers..01 Tissue . 01 Material submitted: . uterus - UTERUS, BILATERAL FALLOPIAN TUBES . 01 Diagnosis: UTERUS AND BILATERAL FALLOPIAN TUBES, SUPRACERVICAL HYSTERECTOMY AND BILATERAL SALPINGECTOMY: Uterus with inactive endometrium with stromal breakdown and leiomyoma (2.5 cm). Histologically unremarkable bilateral fimbriated fallopian tubes. Negative for malignancy. [facility] 10/03/2024 1410 Local . 01 Electronically signed: . Meryl Angel DO, Pathologist NPI- [id number] . 01 Gross description: . . Received in formalin, labeled with two patient identifiers and uterus, bilateral fallopian tubes, and consists of a 10.5 x 7.2 x 3.1 cm, 97 g, fragmented uterus with two detached fimbriated fallopian tubes. No cervix is present. The fragmented uterus is surfaced by a smooth, white, glistening serosal surface and has a red-jesus, smooth, glistening myometrium measuring up to 1.4 cm in thickness. There is a 2.5 x 2.4 x 2.2 cm, white, whorled, well-circumscribed, pedunculated, solitary myometrial nodule which is further sectioned to show a white, whorled cut surface with a 0.3 cm in greatest dimension punctate areas of focal hemorrhage. The endometrial lining is fragmented, red-jesus, finely granular and averages 0.2 cm in thickness. No mucosal abnormalities are appreciated. The first detached fimbriated fallopian tube measures 3.8 cm in length by 0.6 cm in diameter and is surfaced by a smooth, jesus-purple, glistening serosa. Sectioning shows a 0.3 cm unremarkable stellate lumen. The second detached fimbriated fallopian tube measures 4.1 cm in length by 0.5 cm in diameter and is surfaced by a jesus-purple, smooth, glistening serosal surface. Sectioning shows a 0.3 cm unremarkable stellate lumen. Hosiery Bagger sections are submitted as labeled: A1-A2: Full-thickness endometrium. A3: Pedunculated myometrial nodule to include focal areas of hemorrhage (four sections). A4: Fallopian tube #1 to include entire fimbriated end. A5: Fallopian tube #2 to include entire fimbriated end. ([id number]) /[facility] 09/30/2024 1153 Local . 01 Pathologist provided ICD-10: D25.0 . 01 CPT . 780012 Specimen Comment: A courtesy copy of this report has been sent to [phone] Performed at: [address] [id number] MD eBnito Veloz MD Phone: [phone]
--- NOTE | 2024-09-29 07:27 | PM.PREOP ---
Pre-operative Note COVID-19 COVID-19 status: Not tested Interval Note History & Physical reviewed/Exam performed by Physician: Yes Changes to H&P: No
[2024-09-29] MEDS: LACTATED RINGERS 1,000 ML 42 ML IV (07:32)
[2024-09-29 07:39] LABS: Add Manual Diff / Slide Review NO; Basophils Absolute Auto 100 /uL (0-100); Basophils Percent Auto 1.1 % (0-2); Eosinophils Absolute Auto 200 /uL (0-450); Eosinophils Percent Auto 2.5 % (2-4); Hematocrit 23.2 % (36-46); Hemoglobin 7.3 g/dL (12.0-16.0); Lymphocytes Absolute Auto 1700 /uL (1100-4500); Lymphocytes Percent Auto 25.9 % (25-40); Mean Corpuscular HGB Conc 31.7 % (30-36); Mean Corpuscular Hemoglobin 23.9 PG (26-34); Mean Corpuscular Volume 75.4 fL (80-100); Monocytes Absolute Auto 400 /uL (0-900); Monocytes Percent Auto 6.4 % (3-14); Neutrophils Absolute Auto 4200 /uL (1500-7000); Neutrophils Percent Auto 64.1 % (50-75); Platelet Count 534 X10^3/uL (150-400); Red Blood Cell Count 3.07 X10^6/uL (4.0-5.2); Red Cell Distribution Width 18.3 % (11.6-14.8); White Blood Cell Count 6.6 X10^3/uL (4.5-11.0)
--- NOTE | 2024-09-29 07:42 | SUR.PREOP ---
Critical lab results from Johny, laboratory tech: Hemoglobin 7.3 and Hematocrit 23.2. Amy Mtz CRNA, notified. OR trains service conductor notified. Order received for tranfusion of 2 units of PRBCs.
--- NOTE | 2024-09-29 08:28 | SUR.OPER ---
Lithotomy on padded OR bed. Summer Set Pad Positioner under torso. Head on pillow, arms padded and tucked at sides. Legs secured in padded yellow fins stirrups.
[2024-09-29] MEDS: BUPIVACAINE 0.5% W/ EPI (PF) 30 ML VIAL INJ (08:34)
[2024-09-29] MEDS: fentaNYL 100 MCG/2 ML INJ IV ×2 (10:12→10:32)
[2024-09-29] MEDS: OXYCODONE IR 5 MG TABLET PO ×3 (10:12→20:31)
[2024-09-29] MEDS: hydrOXYzine HCL 25 MG TABLET PO (10:13)
[2024-09-29] MEDS: LORazepam 2 MG/ML INJ 0.5 MG IV (10:17)
[2024-09-29] MEDS: ACETAMINOPHEN IV 1,000 MG/100 ML VIAL 400 MG IV (10:21)
--- NOTE | 2024-09-29 10:21 | PM.GYNOP.1 ---
Operative Date/Time/Diagnoses Date of procedure: 09/29/24 Time of procedure: 08:00 Pre-op diagnosis: Menometrorrhagia Anemia due to blood loss Submucosal fibroid Post-op diagnosis: same Procedure & Clinicians Procedure: Procedures Operation Date: 09/29/24 07:45 Actual Procedure Side Surgeon p Laparoscopic Supracervical Hysterectomy with bilateral salpingectomy Andrew Angel MD Indications: Alena is a 43-year-old nulligravida, LMP beginning 07/05/2024 who presents with a 3-4 year history of progressively heavy and long lasting menses. The patient was seen in the [facility] ED on 07/15/2024 at which time she was found to be profoundly anemic and bleeding heavily. She received 2 units of packed red blood cells and was initially treated on tranexamic acid as well as b.i.d. medroxyprogesterone acetate which curtailed her bleeding. She is not bleeding today. Patient experienced menarche at age 11 and had regular menses up until the age of 40-41. Since that time they have become completely irregular and variable in duration lasting a minimum of 7 days and sometimes extending as long as 15 days. Bleeding during that time can be extremely heavy with passage of large clots. For example her menses this month lasted from 07/05/2024 through 07/16/2024 and only stopped with the initiation of TXA and MPA. Patient's last Pap was in June 2023. That Pap and all others prior to but have been normal. Patient has never had endometrial sampling. Recent pelvic ultrasound performed 07/15/2024 shows: FINDINGS: Uterus: Uterus is the uterus is of normal size and morphology measuring 9.5 x 4.9 x 6.4 cm. Within the fundus there is a submucosal fibroid which measures 2.6 x 2.9 x 2.8 cm. This obscures the endometrium which is not measurable. Ovaries: The right ovary measures 3.4 x 3.6 x 2.3 cm, with a calculated ovarian volume of 14.7 cc. The left ovary measures 2.0 x 3 the.3 x 1.8 cm, with a calculated ovarian volume of 6.2 cc, and demonstrates a dominant follicle. The ovaries have a normal sonographic appearance. Less than 12 follicles can be seen in each ovary. No adnexal masses are seen. Other: No pathologic free abdominal or pelvic fluid. IMPRESSION: Large submucosal uterine fibroid measuring 3 cm. Otherwise normal exam. Her endometrial biopsy did not show any endometrial atypia or abnormalities which would preclude hysterectomy. Her most recent Pap was in June 2023 and all of her Paps as an adult have been normal. We had an extended discussion regarding the causes of her bleeding, options for mitigating at medically, as well as options for performance of hysterectomy. Following these discussions, patient wishes to proceed with laparoscopic supracervical hysterectomy and bilateral salpingectomy. She presents today for her scheduled surgery. Surgeon: Andrew Angel [id number] Consultant: Tita Simons Anesthesia Type: General Operative Notes Findings: Upper limits normal size uterus with submucosal fibroid posterior lower segment. Both fallopian tubes appear normal. The left ovary is normal. Right ovary is enlarged due to follicular cyst which was drained. The anterior and posterior cul-de-sac are unremarkable. The remainder of the abdomen and pelvis were normal to laparoscopic inspection Closure Type: primary Specimen(s): left tube, right tube and uterus Applied: catheter Estimated blood loss (mL): 75 Blood products transfused: none Procedure in detail: With the patient under satisfactory general anesthesia in the modified dorsal lithotomy position, the vagina, perineum, and abdomen were prepped and draped in the usual manner for laparoscopic supracervical hysterectomy. A pre-surgical safety time-out was then taken in accordance with [facility] [place] protocols. A bivalve speculum was inserted vagina, the cervix grasped with a single-tooth tenaculum and dilated with Hegar dilators so as to be able to place a Zumi manipulator within the endometrial cavity. The inferior aspect of the umbilicus was then infiltrated 0.5% Marcaine with epinephrine and a 1 cm transverse incision was made through which a Veress needle was used insufflate the abdominal cavity. Once insufflated a 5 mm trocar and sleeve were then placed through the incision and the presence of the sleeve in the abdomen was confirmed by laparoscopic inspection. Second and 3rd 5 mm ports were then placed in the left and right mid quadrants using a similar technique. Pelvis and abdomen were then inspected using a 3 puncture technique with the findings as noted above. The left fallopian tube was grasped at its distal most portion and fimbria ovarica on the left was then and divided with the PowerSeal bipolar device. The dissection was then carried across the mesosalpinx to level of the cornua and then the round ligament on the left was coagulated and divided with the PowerSeal. The dissection was then taken down to the level of the endocervix where the ascending uterine vessels were coagulated and divided. Bladder flap was initiated from the left and dissection was carried across the midline to the right side. Attention was then turned to the right side where the distal right tube was grasped with a grasping forceps and the fimbria ovarica on the right was coagulated and divided with the PowerSeal. The dissection was then carried across the mesosalpinx to the cornua, downward across the round ligament to the level of the endocervical canal where vessels were coagulated and divided and the bladder flap completed. Bladder was advanced, the Zumi manipulator removed, and a Ghada loop was used to amputate the corpus. Following amputation there was no bleeding encountered. The cervical stump was then coagulated with monopolar current and the endocervical canal was coagulated in a similar manner. A 4 cm transverse suprapubic incision was then made through which a 12 mm trocar and sleeve was introduced into the abdominal cavity. An Endo-Catch was used to capture the uterine corpus and brought up to the suprapubic incision. S retractors were used to expose the fascia which was incised bilaterally so as to expand the fascial incision and once the incision had been expanded, an Mendel retractor was placed in the retrieval bag. Sharp morcellation of the uterine corpus was then carried out and the containment bag and submitted as an aggregate specimen. The Mendel retractor was then removed and closure of the fascial defect was accomplished with 0 Vicryl in a running stitch. The abdomen was then reinsufflated the pelvis thoroughly inspected. There was no points of bleeding identified and the ureters were seen to be peristalsing freely on both sides. 20 cc of ropivacaine was then placed in the pelvis and the pneumoperitoneum was vented. The laparoscopic sleeves were then removed after venting of the pneumoperitoneum and all skin incisions were closed with 4-0 Monocryl using inverted interrupted stitches. Skin glue was then applied followed by placement of appropriate dressings on all incisions. Patient was then awakened from anesthesia and transferred to the PACU for a period of observation and recovery after having tolerated the procedure well. Complications: none Post-operative Condition: stable Disposition: PACU Plan for aftercare: Routine postoperative care.
[2024-09-29] MEDS: HYDROMORPHONE 1 MG INJ IV ×2 (10:22→17:30)
[2024-09-29] MEDS: ONDANSETRON 4 MG/2 ML INJ IV ×2 (10:27→12:07)
[2024-09-29] MEDS: ACETAMINOPHEN 325 MG TABLET 650 MG PO ×2 (11:12→17:31)
[2024-09-29] MEDS: HYDROMORPHONE 0.5 MG INJ IV (11:13)
[2024-09-29] MEDS: KETOROLAC 30 MG/ML VIAL IV ×2 (11:13→17:29)
[2024-09-29] MEDS: LACTATED RINGERS 1,000 ML 100 ML IV ×2 (11:44→20:29)
[2024-09-29] MEDS: LORazepam 2 MG/ML INJ 1 MG IV ×2 (12:07→19:14)
--- NOTE | 2024-09-29 17:28 | PC.NURSE ---
Day shift: This abstract writer talked to Dr Angel at approx 17[address]. [address] Angel the 2 units of PRBC's will be cancelled and he said he would cancel them.
[2024-09-29] MEDS: SODIUM FERRIC GLUCONAT/SUCROSE 125 MG in SODIUM CHLORIDE 0.9% 100 ML 110 MG IV (17:53)
--- NOTE | 2024-09-29 18:45 | PC.NURSE ---
LATE NOTE, DR HERNANDEZ STATES ANY PROBLEMS TONIGHT PLEASE CALL HIM, EVEN THOUGH HE IS NOT [employer]ICE UNIT OPERATOR.
--- NOTE | 2024-09-29 20:03 | PC.NURSE ---
Blood/Pain: Pt first verb concerns about her pain. She is concerned because she feels no one addressed her pain concerns in the PACU. Her pain is a 7 at this time. She received oxy and other meds in PACU. MD Angel made aware of the pain and and he had increased the meds from PACU for dilaudid from 0.25 to 0.5 on floor, Dilaudid given with toradol and acetaminophen. Pt was still reporting pain at a 7 to 8/10. Dr. Angel made aware, added ativan and increased dilaudid to 1mg. After this pt was reporting pain in control. Pt second concern was about her blood products. She reports she is to receive 2 units of blood. She is typed and cross. Dr Angel made aware of pt's concerns and he returned to the facility after his last patient was seen. Dr. Angel discussed the issue with the patient and they both elected to try and iron infusion instead and this was given. Pt is resting more comfortable now reporting she feels heard. Cont to monitor patient.
[2024-09-29] MEDS: GABAPENTIN 300 MG CAPSULE 900 MG PO (20:29)
[2024-09-29] MEDS: valACYclovir 500 MG TABLET PO (20:29)
[2024-09-29] MEDS: TRAZODONE 50 MG TABLET PO (20:30)
[2024-09-30 00:09] VITALS: BP 103/56; PULSE 70; RESP 16; TEMP 36.9; O2SAT 98
[2024-09-30] MEDS: ACETAMINOPHEN 325 MG TABLET 650 MG PO (01:06)
[2024-09-30] MEDS: KETOROLAC 30 MG/ML VIAL IV ×2 (01:06→06:17)
[2024-09-30] MEDS: LORazepam 2 MG/ML INJ 1 MG IV (03:06)
[2024-09-30 04:38] VITALS: BP 93/50; PULSE 83; RESP 16; TEMP 36.7; O2SAT 97
[2024-09-30] MEDS: ONDANSETRON 4 MG/2 ML INJ IV (06:17)
[2024-09-30] MEDS: OXYCODONE IR 5 MG TABLET PO ×2 (06:25→13:38)
[2024-09-30 07:20] LABS: Basophils Absolute Auto 0 /uL (0-100); Basophils Percent Auto 0.4 % (0-2); Eosinophils Absolute Auto 100 /uL (0-450); Eosinophils Percent Auto 1.2 % (2-4); Lymphocytes Absolute Auto 2600 /uL (1100-4500); Lymphocytes Percent Auto 25.2 % (25-40); Mean Corpuscular HGB Conc 31.5 % (30-36); Mean Corpuscular Hemoglobin 23.9 PG (26-34); Mean Corpuscular Volume 75.7 fL (80-100); Monocytes Absolute Auto 700 /uL (0-900); Neutrophils Absolute Auto 7000 /uL (1500-7000); Neutrophils Percent Auto 66.2 % (50-75); Platelet Count 453 X10^3/uL (150-400); Red Blood Cell Count 2.66 X10^6/uL (4.0-5.2); Red Cell Distribution Width 18.2 % (11.6-14.8); White Blood Cell Count 10.5 X10^3/uL (4.5-11.0)
[2024-09-30 07:33] LABS: Add Manual Diff / Slide Review SLIDE REVIEW; Hematocrit 20.1 % (36-46); Hemoglobin 6.3 g/dL (12.0-16.0)
[2024-09-30 07:47] LABS: Anisocytosis 2+; Platelet Estimate Increased on smear
[2024-09-30 08:00] VITALS: BP 102/56; PULSE 65; RESP 16; TEMP 36.7; O2SAT 99
--- NOTE | 2024-09-30 08:16 | PC.NURSE ---
critical lab results called in by lab personnel, H/H 6.3 and 20.1. paged and spoke to Dr. Aimee Angel, updated of vitals, condition, no new orders at this time, per provider he will be coming in shortly to check pt. will continue to monitor pt.
[2024-09-30] MEDS: HYDROMORPHONE 1 MG INJ IV ×3 (09:04→19:02)
[2024-09-30] MEDS: GABAPENTIN 300 MG CAPSULE 900 MG PO (09:05)
[2024-09-30] MEDS: valACYclovir 500 MG TABLET PO (09:05)
--- NOTE | 2024-09-30 10:02 | P.DS_ITS ---
History of Present Illness History of Present Illness Date Patient Seen: 09/30/24 Time Patient Seen: 10:03 Chief complaint: Laparoscopic Supracervical Hysterectomy Narrative: Alena is a 43-year-old nulligravida, LMP beginning 07/05/2024 who presents with a 3-4 year history of progressively heavy and long lasting menses. The patient was seen in the [facility] ED on 07/15/2024 at which time she was found to be profoundly anemic and bleeding heavily. She received 2 units of packed red blood cells and was initially treated on tranexamic acid as well as b.i.d. medroxyprogesterone acetate which curtailed her bleeding. She is not bleeding today. Patient experienced menarche at age 11 and had regular menses up until the age of 40-41. Since that time they have become completely irregular and variable in duration lasting a minimum of 7 days and sometimes extending as long as 15 days. Bleeding during that time can be extremely heavy with passage of large clots. For example her menses this month lasted from 07/05/2024 through 07/16/2024 and only stopped with the initiation of TXA and MPA. Patient's last Pap was in June 2023. That Pap and all others prior to but have been normal. Patient has never had endometrial sampling. Recent pelvic ultrasound performed 07/15/2024 shows: FINDINGS: Uterus: Uterus is the uterus is of normal size and morphology measuring 9.5 x 4.9 x 6.4 cm. Within the fundus there is a submucosal fibroid which measures 2.6 x 2.9 x 2.8 cm. This obscures the endometrium which is not measurable. Ovaries: The right ovary measures 3.4 x 3.6 x 2.3 cm, with a calculated ovarian volume of 14.7 cc. The left ovary measures 2.0 x 3 the.3 x 1.8 cm, with a calculated ovarian volume of 6.2 cc, and demonstrates a dominant follicle. The ovaries have a normal sonographic appearance. Less than 12 follicles can be seen in each ovary. No adnexal masses are seen. Other: No pathologic free abdominal or pelvic fluid. IMPRESSION: Large submucosal uterine fibroid measuring 3 cm. Otherwise normal exam. Her endometrial biopsy did not show any endometrial atypia or abnormalities which would preclude hysterectomy. Her most recent Pap was in June 2023 and all of her Paps as an adult have been normal. We had an extended discussion regarding the causes of her bleeding, options for mitigating at medically, as well as options for performance of hysterectomy. Following these discussions, patient wishes to proceed with laparoscopic supracervical hysterectomy and bilateral salpingectomy. She presents today for her scheduled surgery. Discharge Providers Provider Date of admission: 09/29/2024 Discharge Date: 09/30/24 Primary care physician: ROBERT Parham Discharge provider: Andrew Angel MD Summary Hospital Course Discharge Diagnosis: Menometrorrhagia Submucous uterine myoma Anemia due to bloos loss, chronic s/p laparoscopic supracervical hysterectomy with bilateral salpingectomy Hospital Course: Alena was admitted on 09/29/2024 and underwent an uneventful laparoscopic supracervical hysterectomy. Full details of the procedure well summarized on the operative note of that date. Following surgery the patient has done extremely well with prompt return of bowel and bladder function, she is ambulating independently, tolerating regular diet, and her pain is well controlled with oral pain medication. Patient received 2 infusions of iron postop due to her chronic anemia related to her menometrorrhagia. She will be discharged at this time in an afebrile normotensive condition to home after counseling regarding precautionary symptoms, limitations activity, medications, and plans for follow-up which will be in 2 weeks. Medications at discharge will include resumption of all pre-admission medications, as well as oxycodone 5 mg every 46 hours as needed for pain, and Cipro 500 mg p.o. b.i.d. x5 days for UTI prophylaxis following catheterization. Status at Discharge Cognitive/behavioral status at discharge: oriented Functional status at discharge: independent ambulation Overall status at discharge: patient is progressing back to baseline Time Spent with Patient Time spent: Less than 30 minutes Exam Vital Signs (past 8 hours): - 09/30/24 04:38 09/30/24 08:00 Temperature 98.1 F 98.0 F Pulse Rate 83 65 Respiratory Rate 16 16 Blood Pressure 93/50 L 102/56 L Pulse Oximetry 97 99 Oxygen Flow Rate 0 0 Oxygen Delivery Method Room Air Oxygen Flow Rate 0 Const General: cooperative and comfortable Nutritional Appearance: average body habitus Orientation: alert and oriented x3 HENMT Head: normal to inspection, normocephalic and atraumatic Ears: hearing grossly normal bilaterally Face and sinus: face symmetric Eyes General: appearance normal, both eyes and all related structures Conjunctivae: conjunctivae normal Sclera: sclerae normal EOM: EOM intact bilaterally Neck Neck: normal visual inspection Resp Effort & Inspection: normal respiratory effort and able to speak in complete sentences GI Auscultation: normal bowel sounds Psych Appearance: grossly normal Mental Status: mental status grossly normal Speech and Movement: speech and movement normal Mood: congruent mood Affect: normal affect Attitude: cooperative Thought Process: normal Thought Content: normal Judgment: judgment good Objective Labs 09/30/24 06:00 Labs: Laboratory Results - last 24 hr 09/30/24 06:00 WBC 10.5 D RBC 2.66 L Hgb 6.3 L* Hct 20.1 L* MCV 75.7 L MCH 23.9 L MCHC 31.5 RDW 18.2 H Plt Count 453 H Neut % (Auto) 66.2 Lymph % (Auto) 25.2 Webb % (Auto) 7.0 Eos % (Auto) 1.2 L Baso % (Auto) 0.4 Neut # (Auto) 7000 Lymph # (Auto) 2600 Webb # (Auto) 700 Eos # (Auto) 100 Baso # (Auto) 0 Platelet Estimate Increased on smear RBC Morphology Not Reportable Anisocytosis 2+ H [facility] Medical History (Updated 10/12/24 @ 00:00 by ) Vestibular disorder Rosacea (~2019) Plantar warts (~1991) Osteoarthritis (~2021) Allergies (~2013) Depression (~2021) Anxiety (~2020) Headache (~2020) ADHD (~2020) Upper back pain (~2020) Neck pain (~2020) Scoliosis (~2009) Osteopenia (~2009) Chicken pox (~1983) Anemia (~2022) Vertigo (~2020) Tinnitus Hearing loss Ovarian cyst (~2008) Irregular menstrual cycle (~2019) Hypothyroidism Genital HSV (~2001) Dysmenorrhea Menorrhagia (~2021) Trigeminal neuralgia of right side of face (~2020) Occipital neuralgia (~2020) History of meningioma Surgical History Anesthesia History of appendectomy (~01/01/21) History of mandibular surgery (~03/2016) H/O brain surgery (~05/27/21) History of third molar tooth extraction Family History Father Prediabetes Janet's disease Psoriasis Mother Prediabetes Hypothyroidism Cataracts, bilateral Sister Hypothyroidism Raynaud's syndrome Grandfather History of heart disease Grandmother Diabetes mellitus Grandfather Cancer Grandmother Cancer Social History household members: spouse Smoking Status: Former smoker alcohol intake: current Discharge Assessment & Plan Assessment and Plan Assessment: Menometrorrhagia Submucous uterine myoma Anemia due to bloos loss, chronic s/p laparoscopic supracervical hysterectomy with bilateral salpingectomy Plan of Treatment: Routine post op care with F/U in 2 wks or as needed Discharge Plan Discharge Plan Patient Disposition: Home Provider Discharge Comment: Please review the written instructions you received when you were discharged from the hospital. Your follow-up appointment is scheduled for 2 weeks after your surgery and I look forward to seeing you then. If however in the meanwhile you have any issues, concerns, or questions, please contact me either through the office phone at [phone], or via the patient portal. Discharge orders & Medications Discharge Orders: Discharge (Order); Ordered 09/30/24 Ordered By: Andrew Angel Prescriptions: New hydromorphone [Dilaudid] 2 mg tablet 2 mg PO Q4-6H PRN (Reason: pain) Qty: 12 0RF Continued LYSINE/VIT B1/VIT B12/VIT B6 (JETS) 1 ctb PO Q DAY Qty: 0 iodine-sodium iodide [iodine] 2 % Tincture 10 ea TOPICAL DAILY Qty: 0 valacyclovir 500 mg tablet 500 mg PO BID trazodone 100 mg tablet 50 - 100 mg PO QPM thyroid (pork) [[employer] Thyroid] 90 mg tablet 90 mg PO DAILY Excedrin Migraine 250-250-65 mg Tablet 2 tab PO Q6H PRN (Reason: Migraine Headache) baclofen 10 mg tablet 10 - 20 mg PO 3XD PRN (Reason: Muscle Spasm) gabapentin 300 mg capsule 900 mg PO BID Patient Comments: TAKE 3 CAPSULES BY MOUTH TWICE DAILY acetaminophen [Tylenol Arthritis Pain] 650 mg tablet extended release 650 mg PO Q12H ibuprofen 200 mg capsule 200 mg PO Q6H PRN (Reason: Pain) pregabalin 75 mg capsule 75 mg PO QAM Discontinued medroxyprogesterone 10 mg tablet 10 mg PO .COMPLEX Qty: 100 0RF Rx Instructions: Take 2 tables every 2 hours until bleeding stops/significantly slows down, then 2 tabs every 4 hours x 48 hours, then 2 tabs every 6 hrs for 48 hrs, then 2 tabs every 8 hrs x 48hrs, then 2 tabs every 12 hrs x 48hrs, then 2 tabs a day for 7 days. If bleeding picks up again, repeat previous step. If bleeding not slowing/stopping at 48hr alba of step one, call provider. progesterone micronized 200 mg capsule 200 mg PO BID Patient Comments: 200 qam and 400mg qpm. tranexamic acid 650 mg tablet 1,300 mg PO 3XD PRN (Reason: Bleeding.) No Action fluconazole 150 mg tablet 150 mg PO .COMPLEX Qty: 2 0RF Rx Instructions: 150 mg orally After finishing antibiotics and then repeat again in 5 days; cephalexin 500 mg capsule 500 mg PO TID 7 Days Qty: 21 0RF Follow up/Referrals: Courtney Angel ARNP [Primary Care Provider] - Andrew Angel MD [Physician] - Diet/Activity/Treatments Activity: As tolerated Other treatments: [id number] Tylenol and/or ibuprofen may be used for additional pain relief. [id number] stool softeners and/or MiraLax may be used as needed for constipation.Iron supplement she will be taken twice a day for the next 2 weeks. Adding more iron rich foods in your diet is encouraged. Repeat blood counts will be checked at your 2 week postop visit Skin/Wound/Dressing Care Dressing: Dressings should be removed on the morning of 10/01/2024 Visit Report/Discharge Packet Instructions: Iron-Deficiency Anemia, Anemia, DI for Blood Transfusion, DI for Hysterectomy, DI for Laparoscopy, Complete Blood Count, DI for Constipation, Iron Sucrose Injection Stand Alone Forms: Patient Portal/API, Stroke Signs & Symptoms Print Language: Welsh Discharge Data Primary Care Provider: Courtney Angel Attending Provider: Andrew Angel Quality VTE Deep Vein Thrombosis/Pulmonary Embolism Present on Admission: No IH PROFEE Charge Codes Discharge inpatient/observation: [id number]
[2024-09-30] MEDS: SODIUM FERRIC GLUCONAT/SUCROSE 125 MG in SODIUM CHLORIDE 0.9% 100 ML 110 MG IV (13:37)
--- NOTE | 2024-09-30 14:21 | CM.DANOTE ---
Discharge Planning/Care Management CM Discharge Assessment Start: 09/30/24 14:16 Freq: Status: Active Protocol: Document 09/30/24 14:16 JORGE (Rec: 09/30/24 14:20 JORGE [id number]) Discharge Planning Assessment Assigned Supervisor Quality Control PAMELLA Perrin DPOA/Assigned Designee Name mother Hanson Contact Information [phone] Advance Directives? No History Provided By Medical Record Prior Living Arrangements House Household Members spouse Type of transporation used prior to Drives own vehicle admit Independent with ADL's Yes Is patient alert and oriented? 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 Barriers to Discharge No Comment Home w/family this afternoon. Discharge Plan Home Transportation Arrangement Family Referrals Initiated None needed Primary Care Provider Courtney Angel
[2024-09-30] MEDS: MAGNESIUM CITRATE 300 ML SOLUTION 150 ML PO (16:59)
[2024-09-30 17:00] VITALS: BP 109/61; PULSE 71; RESP 16; TEMP 37.2; O2SAT 99
--- NOTE | 2024-09-30 19:16 | PC.NURSE ---
Pending discharge: Pt is ready to d/c to home. Saeed out and has been able to void x3. Bladder scanned initially for 250, then she voided, rescanned and PVR was 300. Did think she could void again and she did. PVR less than 100. Discussed getting up freq to void. Set a timer during the night about q4hr and try to void even if she doesn't think she needs to. Spouse has picked up rx. Has tolerated diet w/out problems. Feels gassy and did order her mag citrate but she changed her mind. She hasn't taken it yet. Reviewed discharge instructions. She is waiting for her spouse to arrive.
== END 2024-09-30 19:30 | disposition home or self-care (01) ==
LOC: OR 06:27 → AC 06:28
PROVIDERS: Family Provider Nurse Practitioner Family; PCP Nurse Practitioner Family; Referring Provider Obstetrics & Gynecology; Visit Provider Obstetrics & Gynecology
PROC: 0UT94ZL Resection of Uterus, Supracervical, Percutaneous Endoscopic Approach (ICD-10-PCS; principal; 2024-09-29 07:45)
DX: N92.1 Excessive and frequent menstruation with irregular cycle (principal); D25.0 Submucous leiomyoma of uterus; D50.0 Iron deficiency anemia secondary to blood loss (chronic); N83.01 Follicular cyst of right ovary
CPT/HCPCS: 58542; 85025; 86850; 86900; 86901; A9270; J0131; J1171; J1885; J2060; J2250; J2405; J2704; J2916; J3010

== ENCOUNTER → 2024-10-02 10:47 | Outpatient (CLI) | payer MEDICARE, SELFPAY ==
[2024-09-29 11:31] VITALS: BMI 24.8
[2024-10-02 11:46] LABS: Add Manual Diff / Slide Review NO; Basophils Absolute Auto 0 /uL (0-100); Basophils Percent Auto 0.4 % (0-2); Eosinophils Absolute Auto 200 /uL (0-450); Eosinophils Percent Auto 2.3 % (2-4); Hematocrit 23.2 % (36-46); Hemoglobin 7.3 g/dL (12.0-16.0); Lymphocytes Absolute Auto 1400 /uL (1100-4500); Lymphocytes Percent Auto 15.5 % (25-40); Mean Corpuscular HGB Conc 31.3 % (30-36); Mean Corpuscular Volume 76.7 fL (80-100); Monocytes Absolute Auto 400 /uL (0-900); Monocytes Percent Auto 5.1 % (3-14); Neutrophils Absolute Auto 6700 /uL (1500-7000); Neutrophils Percent Auto 76.7 % (50-75); Platelet Count 573 X10^3/uL (150-400); Red Blood Cell Count 3.03 X10^6/uL (4.0-5.2); White Blood Cell Count 8.7 X10^3/uL (4.5-11.0)
== END ==
PROVIDERS: Family Provider Nurse Practitioner Family; PCP Nurse Practitioner Family; Referring Provider Obstetrics & Gynecology; Visit Provider Obstetrics & Gynecology
DX: D64.9 Anemia, unspecified (principal); T81.9XXA Unspecified complication of procedure, initial encounter
CPT/HCPCS: 36415; 85025

== ENCOUNTER → 2024-10-17 09:13 | Outpatient (CLI) | payer MEDICARE, SELFPAY ==
[2024-09-29 11:31] VITALS: BMI 24.8
[2024-10-17 09:55] LABS: Add Manual Diff / Slide Review NO; Basophils Absolute Auto 100 /uL (0-100); Basophils Percent Auto 0.9 % (0-2); Eosinophils Absolute Auto 400 /uL (0-450); Eosinophils Percent Auto 6.2 % (2-4); Hematocrit 35.9 % (36-46); Hemoglobin 11.4 g/dL (12.0-16.0); Lymphocytes Absolute Auto 1900 /uL (1100-4500); Mean Corpuscular HGB Conc 31.6 % (30-36); Mean Corpuscular Hemoglobin 26.3 PG (26-34); Mean Corpuscular Volume 83.1 fL (80-100); Monocytes Absolute Auto 400 /uL (0-900); Monocytes Percent Auto 7.1 % (3-14); Neutrophils Absolute Auto 3200 /uL (1500-7000); Neutrophils Percent Auto 53.8 % (50-75); Platelet Count 380 X10^3/uL (150-400); Red Blood Cell Count 4.32 X10^6/uL (4.0-5.2); Red Cell Distribution Width 25.1 % (11.6-14.8)
[2024-10-17 10:07] LABS: Anisocytosis 1+; Poikilocytosis 1+
[2024-10-17 15:45] LABS: HIV 1 & 2 Ab/Ag 4th Gen Combo NEGATIVE (NEGATIVE); Hep C Virus Ab w/Reflex Quant NEGATIVE s/c (NEGATIVE)
[2024-10-18 01:08] LABS: Hepatitis BE Antigen Negative (Negative)
== END ==
PROVIDERS: Family Provider Nurse Practitioner Family; PCP Nurse Practitioner Family; Referring Provider Obstetrics & Gynecology; Visit Provider Obstetrics & Gynecology
DX: D64.9 Anemia, unspecified (principal); Z92.89 Personal history of other medical treatment
CPT/HCPCS: 36415; 85025; 86803; 87350; 87389